=== PATIENT | female | born 1945 | race Caucasian/White ===

== ENCOUNTER → 2022-09-17 | Outpatient (CLI) | payer OTHER | END | disposition home or self-care (01) | LOC: SHCH 09:17 | PROVIDERS: ATTEND Student in an Organized Health Care Education/Training Program | DX: I08.8 Other rheumatic multiple valve diseases (principal); R06.02 Shortness of breath | CPT/HCPCS: 93306 ==

== ENCOUNTER → 2022-10-30 | Outpatient (CLI) | payer OTHER ==
[~2022-10-30] MED LIST: IOHEXOL 350 MG/ML 100ML INFUS..BTL IV ONE
== END | disposition home or self-care (01) ==
LOC: RAH 09:12 → EDUNIT# 11-11 10:00
PROVIDERS: ATTEND Student in an Organized Health Care Education/Training Program
DX: M47.815 Spondylosis without myelopathy or radiculopathy, thoracolumbar region (principal); R07.9 Chest pain, unspecified
CPT/HCPCS: 75574; Q9967

== ENCOUNTER 2024-02-09 10:33 | Observation (INO) | payer OTHER ==
[~2024-02-09] VITALS: Ht 167.6 cm; Wt 108.4 kg
[2024-02-09 11:15] VITALS: BP 124/57; PULSE 60; RESP 18
[2024-02-09] MEDS ORDERED: ACETAMINOPHEN 500 MG TABLET PO PRN (11:30)
[2024-02-09] MEDS ORDERED: DILT120T PO (11:50)
[2024-02-09] MEDS ORDERED: ACET-2743 PO (11:50)
[2024-02-09] MEDS ORDERED: LISI20TA24 PO (11:50)
[2024-02-09] MEDS ORDERED: CYAN100010 PO (11:50)
[2024-02-09] MEDS ORDERED: FURO20TA6 PO (11:50)
[2024-02-09] MEDS ORDERED: MVIT PO (11:50)
[2024-02-09] MEDS ORDERED: AMIO200T68 PO (11:50)
[2024-02-09] MEDS ORDERED: CHOL100046 PO (11:50)
[2024-02-09 12:00] VITALS: O2SAT 95
[2024-02-09] MEDS ORDERED: MAGNESIUM 2GM PREMIX 50ML 50 ML IV PRN (12:00)
[2024-02-09] MEDS ORDERED: POTASSIUM CHLORIDE 20MEQ/100ML 100 ML IV PRN (12:00)
[2024-02-09] MEDS ORDERED: POTASSIUM CHLORIDE 10% ELIXIR 20 MEQ/15 ML UDCUP PO PRN (12:00)
[2024-02-09] MEDS ORDERED: KCL 20 MEQ ERTAB PO PRN (12:00)
[2024-02-09 12:23] LABS: BASOPHILS # (AUTO) 0.05 K/uL (0.00-0.20); BASOPHILS % (AUTO) 0.6 % (0.0-5.0); EOSINOPHILS # (AUTO) 0.26 K/uL (0.00-0.70); HEMATOCRIT 36.9 % (36-48); IMMATURE GRANULOCYTE ABSOLUTE 0.03 K/uL (0-1); LYMPHOCYTES # (AUTO) 3.3 K/uL (1.0-4.8); LYMPHOCYTES % (AUTO) 39.1 % (21.0-51.0); MEAN CORPUSCULAR HGB CONC 34.1 g/dL (32.0-36.0); MEAN CORPUSCULAR VOLUME 96.6 fL (79-99); MONOCYTES # (AUTO) 0.6 K/uL (0.1-1.0); MONOCYTES % (AUTO) 6.4 % (3.0-13.0); NEUTROPHILS # (AUTO) 4.3 K/uL (1.8-7.7); NEUTROPHILS % (AUTO) 50.5 % (40.0-77.0); PLATELET COUNT (AUTO) 195 K/uL (130-400); RED BLOOD CELL COUNT(AUTO) 3.82 MIL/uL (4.00-5.50); RED CELL DISTRIBUTION WIDTH 12.3 % (11.0-15.5); WHITE BLOOD COUNT (AUTO) 8.5 K/uL (4.8-10.8)
[2024-02-09 12:36] LABS: HEMOGLOBIN A1C 6.3 % (4.0-6.0)
[2024-02-09 12:43] LABS: PROTHROMBIN TIME 11.8 SEC (9.6-11.6)
[2024-02-09 12:44] LABS: PARTIAL THROMBOPLASTIN TIME 25.9 SEC (26.3-35.5)
[2024-02-09 12:53] LABS: ALANINE AMINOTRANSFERASE 38 U/L (12-78); ALBUMIN 4.3 g/dL (3.5-5.0); ASPARTATE AMINOTRANSFERASE 18 U/L (10-37); BILIRUBIN,TOTAL 0.7 mg/dL (0.2-1.0); CARBON DIOXIDE 26 mmol/L (21-32); CHLORIDE 100 mmol/L (101-111); CREATININE 1.2 mg/dL (0.5-1.0); GLOMERULAR FILTR. RATE CALC 47 mL/min (>90); GLUCOSE,RANDOM 109 mg/dL (70-105); POTASSIUM 4.6 mmol/L (3.5-5.1); SODIUM SERUM 136 mmol/L (136-145); THYROID STIMULATING HORMONE 2.19 uIU/mL (0.36-3.74); TOTAL PROTEIN, SERUM 7.7 g/dL (6.0-8.3); UREA NITROGEN, BLOOD 26 mg/dL (7-18)
[2024-02-09 13:00] LABS: CHOLESTEROL 131 mg/dL (<200); HDL CHOLESTEROL 62 mg/dL (35-85); LDL DIRECT 46 mg/dL (0-99); TRIGLYCERIDES 160 mg/dL (30-200)
[2024-02-09] MEDS ORDERED: ATOR-2 PO (13:11)
[2024-02-09] MEDS ORDERED: MAGN250T35 PO (13:11)
[2024-02-09] MEDS ORDERED: ACET-3540 PO (13:11)
[2024-02-09] MEDS ORDERED: ASPI-1197 PO (13:11)
[2024-02-09] MEDS ORDERED: AMIODARONE 900MG VIAL 540 MG in DEXTROSE 5%-WATER 300 ML IV SCH (13:30)
[2024-02-09] MEDS ORDERED: PHARMACY COMMUNICATION MISC SCH (13:30)
[2024-02-09] MEDS: FUROSEMIDE 20MG VIAL IV ONE (13:38)
[2024-02-09] MEDS: AMIODARONE 900MG VIAL 150 MG in DEXTROSE 5%-WATER 100 ML IV SCH (14:11)
[2024-02-09] MEDS: AMIODARONE 900MG VIAL 360 MG in DEXTROSE 5%-WATER 200 ML IV SCH (14:24)
[2024-02-09] MEDS: INSULIN HUMULIN R 100 UNIT/ML 3ML SQ SCH (16:30)
[2024-02-09 16:40] VITALS: BP 126/55; PULSE 53; RESP 18
[2024-02-09 20:00] VITALS: O2SAT 96
[2024-02-09 20:10] VITALS: BP 122/72; PULSE 59; RESP 18
[2024-02-09] MEDS: AMIODARONE 200 MG TABLET PO SCH (21:22)
[2024-02-10 00:55] VITALS: BP 112/51; PULSE 64; RESP 18
[2024-02-10 04:51] VITALS: BP 118/70; PULSE 90; RESP 18
[2024-02-10 07:08] LABS: BASOPHILS # (AUTO) 0.04 K/uL (0.00-0.20); BASOPHILS % (AUTO) 0.4 % (0.0-5.0); EOSINOPHILS # (AUTO) 0.39 K/uL (0.00-0.70); EOSINOPHILS % (AUTO) 3.4 % (0.0-8.0); HEMATOCRIT 36.3 % (36-48); IMMATURE GRANULOCYTE ABSOLUTE 0.02 K/uL (0-1); LYMPHOCYTES # (AUTO) 4.8 K/uL (1.0-4.8); LYMPHOCYTES % (AUTO) 41.9 % (21.0-51.0); MEAN CORPUSCULAR HEMOGLOBIN 33.1 pg (27.0-33.0); MEAN CORPUSCULAR HGB CONC 33.1 g/dL (32.0-36.0); MEAN CORPUSCULAR VOLUME 100.3 fL (79-99); MONOCYTES # (AUTO) 0.7 K/uL (0.1-1.0); MONOCYTES % (AUTO) 6.2 % (3.0-13.0); NEUTROPHILS # (AUTO) 5.5 K/uL (1.8-7.7); NEUTROPHILS % (AUTO) 47.9 % (40.0-77.0); PLATELET COUNT (AUTO) 191 K/uL (130-400); RED BLOOD CELL COUNT(AUTO) 3.62 MIL/uL (4.00-5.50); RED CELL DISTRIBUTION WIDTH 12.4 % (11.0-15.5); WHITE BLOOD COUNT (AUTO) 11.4 K/uL (4.8-10.8)
[2024-02-10 07:15] LABS: CREATININE 1.2 mg/dL (0.5-1.0); POTASSIUM 4.5 mmol/L (3.5-5.1)
[2024-02-10 07:18] VITALS: BP 119/56; PULSE 57; RESP 18
[2024-02-10 07:27] VITALS: RESP 18; O2SAT 96
[2024-02-10 07:32] VITALS: O2SAT 95
[2024-02-10] MEDS: (Cholecalciferol (Vitamin D3) (Vitamin D3) 25 MCG) PO SCH (09:00)
[2024-02-10] MEDS: ENOXAPARIN SODIUM 30 MG/0.3 ML SQ SCH (09:00)
[2024-02-10] MEDS: LISINOPRIL 20 MG TABLET PO SCH (09:24)
[2024-02-10] MEDS: FUROSEMIDE 20 MG TABLET PO SCH (09:24)
[2024-02-10] MEDS: CYANOCOBALAMIN (VITAMIN B-12) 1,000 MCG TABLET PO SCH (09:24)
[2024-02-10] MEDS: ASPIRIN 81MG CHEW TAB PO SCH (09:24)
[2024-02-10] MEDS: PANTOPRAZOLE 40 MG TAB DR PO SCH (09:24)
[2024-02-10 11:14] VITALS: BP 115/44; PULSE 56; RESP 18
[2024-02-10 12:03] LABS: APPEARANCE,URINE CLOUDY (CLEAR); BILIRUBIN,URINE NEGATIVE (NEGATIVE); COLOR,URINE LIGHT-YELLOW (YELLOW); GLUCOSE, URINE (UA) NEGATIVE (NEGATIVE); KETONES,URINE NEGATIVE (NEGATIVE); LEUKOCYTE ESTERASE ,URINE 500 Leu/uL (NEGATIVE); NITRATE,URINE NEGATIVE (NEGATIVE); OCCULT BLOOD,URINE NEGATIVE (NEGATIVE); PROTEIN,URINE NEGATIVE (NEGATIVE); UROBILINOGEN,URINE 0.2 mg/dL (0.2-1.0)
[2024-02-10 12:22] LABS: ADD UA MICROSCOPIC YES
[2024-02-10 12:26] LABS: BACTERIA,URINE RARE /HPF (None Seen); MUCUS,URINE RARE LPF (None Seen); SQUAMOUS EPITHELIAL CELL,UR MOD /HPF (0-2); WBC,URINE 51-100 /HPF (0-1)
[2024-02-10] MEDS ORDERED: CEFD300C3 PO (13:25)
[2024-02-10] MEDS: CEFTRIAXONE 1G VIAL IVPB SCH (13:58)
[2024-02-10] MEDS ORDERED: ATORVASTATIN 40 MG TABLET PO SCH (21:00)
== END 2024-02-10 14:40 | disposition home or self-care (01) ==
LOC: EDH 10:33 → 2DH 10:57 → INTOOBSV 10:57
PROVIDERS: ADMIT Internal Medicine; ATTEND Internal Medicine
DX: I48.19 Other persistent atrial fibrillation (principal); G47.33 Obstructive sleep apnea (adult) (pediatric); E78.5 Hyperlipidemia, unspecified; I10 Essential (primary) hypertension; I08.1 Rheumatic disorders of both mitral and tricuspid valves; N39.0 Urinary tract infection, site not specified; Z79.82 Long term (current) use of aspirin; Z95.818 Presence of other cardiac implants and grafts; Z79.899 Other long term (current) drug therapy
CPT/HCPCS: 96376; 96365; 96366; 96375; 83036; 84443; 83735 ×2; 84484 ×2; 80061; 80053; 83880; 85025 ×2; 85610; 85730; 82948 ×2; 86140; 36415 ×2; 71045; 93306; 93356; 76376; 93005; 84145; 96367; 80048; 87088; 81001; J7060 ×2; J1940; J0282 ×2; G0378 ×3; J1650; J0696

== ENCOUNTER 2024-10-12 06:42 | Day surgery (SDC) | payer OTHER ==
[2024-10-10 09:02] LABS: BASOPHILS # (AUTO) 0.04 K/uL (0.00-0.20); BASOPHILS % (AUTO) 0.4 % (0.0-5.0); EOSINOPHILS # (AUTO) 0.33 K/uL (0.00-0.70); EOSINOPHILS % (AUTO) 3.6 % (0.0-8.0); IMMATURE GRANULOCYTE ABSOLUTE 0.02 K/uL (0-1); LYMPHOCYTES # (AUTO) 3.8 K/uL (1.0-4.8); LYMPHOCYTES % (AUTO) 40.9 % (21.0-51.0); MEAN CORPUSCULAR HEMOGLOBIN 32.6 pg (27.0-33.0); MEAN CORPUSCULAR HGB CONC 32.6 g/dL (32.0-36.0); MONOCYTES # (AUTO) 0.6 K/uL (0.1-1.0); MONOCYTES % (AUTO) 6.5 % (3.0-13.0); NEUTROPHILS # (AUTO) 4.5 K/uL (1.8-7.7); NEUTROPHILS % (AUTO) 48.4 % (40.0-77.0); PLATELET COUNT (AUTO) 194 K/uL (130-400); RED CELL DISTRIBUTION WIDTH 12.3 % (11.0-15.5); WHITE BLOOD COUNT (AUTO) 9.2 K/uL (4.8-10.8)
[2024-10-10 09:05] VITALS: BP 150/73; PULSE 56; RESP 18; TEMP 97.4
[2024-10-10 09:12] LABS: INR 1.02 (0.85-1.15); PROTHROMBIN TIME 11.4 SEC (9.6-11.6)
[2024-10-10 09:14] LABS: PARTIAL THROMBOPLASTIN TIME 25.8 SEC (26.3-35.5)
[2024-10-10 09:16] LABS: CREATININE 1.1 mg/dL (0.5-1.0)
--- NOTE | 2024-10-10 09:59 | EKG ---
[facility] Test Date: 2024-10-10 Test Time: 09:49:08 Pat Name: NATASHA BURDEN Department: [facility] Room: Gender: F Sales Ambassador: [id number] : 1945 Requested By: JOEY POOL Order Number: [id number] Reading MD: Oswald Clinton Measurements Intervals [place] Rate: 98 P: 0 IN: 0 QRS: 15 QRSD: 103 T: -28 QT: 341 QTc: 436 Interpretive Statements Atrial fibrillation Aberrant complex Compared to ECG 02/09/2024 12:38:32 Aberrant conduction of supraventricular beat(s) now present Ventricular premature complex(es) no longer present ST (T wave) deviation no longer present Electronically Signed On 10-10-2024 18:23:38 RESEARCH CHIEF ENGINEER by Oswald Clinton Please click the below link to view image of tracing.
[~2024-10-12] VITALS: Ht 170.2 cm; Wt 111.3 kg
[2024-10-12] VITALS (7 sets, daily range): BP systolic 99–151; BP diastolic 49–72; PULSE 54–102; RESP 13–18; TEMP 97.1–97.5
[~2024-10-12 06:42] MED LIST changes: +ACET-2521 PO; +ACET-3540 PO; +ASPI-1197 PO; +ATOR-2 PO; +CHOL400T14 PO; +CYAN100010 PO; +FURO20TA6 PO; -IOHEXOL 350 MG/ML 100ML INFUS..BTL IV ONE; +LISI20TA24 PO; +MAGN250T35 PO; +MVIT PO
[2024-10-12] MEDS ORDERED: 0.9%NACL 1000ML 1,000 ML IV SCH (08:00)
[2024-10-12] MEDS ORDERED: LIDOCAINE HCL 1% MDV 50ML VIAL ONE (09:01)
[2024-10-12] MEDS ORDERED: BUPIvacaine/PF 0.25% 30ML VIAL IJ ONE (09:01)
[2024-10-12] MEDS ORDERED: ceFAZolin SODIUM 1 GM VIAL ONE (09:01)
[2024-10-12] MEDS ORDERED: MIDAZOLAM HCL 1 MG/ML 2ML VIAL ONE ×3 (09:21→09:45)
[2024-10-12] MEDS ORDERED: IOHEXOL-350 50ML VIAL IV ONE (09:21)
[2024-10-12] MEDS ORDERED: MEPERIDINE-PF 50 MG/ML SYG ONE ×2 (09:21→09:45)
[2024-10-12] MEDS ORDERED: acetaMINOPHEN WITH coDEINE 1 TAB TAB PO PRN ×2 (11:00→12:30)
[2024-10-12] MEDS ORDERED: acetaMINOPHEN 500 MG TABLET PO PRN (11:00)
[2024-10-12] MEDS ORDERED: TRAM50TA4 PO (11:02)
--- NOTE | 2024-10-12 12:54 | HMCIMG ---
Exam Type: CHEST 1VW Clinical Information: s/p pacemaker Comparison: None Findings: The lungs are clear ofthe heart is enlarged in size. The bony and soft tissue structures of the chest are unremarkable. Left cardiac pacemaker is noted with leads in place. Impression: Clear lungs.
--- NOTE | 2024-10-13 07:02 | EKG ---
[facility] Test Date: 2024-10-12 Test Time: 12:07:28 Pat Name: NATASHA BURDEN Department: [facility] Room: [facility] Gender: Female Starchmaker: [id number] : 1945 Requested By: JOEY POOL Order Number: [id number] Reading MD: Oswald Clinton Measurements Intervals [place] Rate: 95 P: 0 MS: 128 QRS: 17 QRSD: 106 T: -63 QT: 363 QTc: 452 Interpretive Statements Ventricular-paced complexes Compared to ECG 10/10/2024 09:49:08 Atrial fibrillation no longer present Aberrant conduction of supraventricular beat(s) no longer present Electronically Signed On 10-14-2024 17:35:13 QUILL LAYER by Oswald Clinton Please click the below link to view image of tracing.
== END 2024-10-12 13:10 | disposition home or self-care (01) ==
LOC: DAH 06:42
PROVIDERS: ATTEND Internal Medicine Cardiovascular Disease
DX: I48.19 Other persistent atrial fibrillation (principal); I49.5 Sick sinus syndrome; I10 Essential (primary) hypertension; R00.1 Bradycardia, unspecified; E78.5 Hyperlipidemia, unspecified; G47.33 Obstructive sleep apnea (adult) (pediatric); E66.01 Morbid (severe) obesity due to excess calories; Z90.89 Acquired absence of other organs; Z68.39 Body mass index [BMI] 39.0-39.9, adult; Z98.890 Other specified postprocedural states; Z95.811 Presence of heart assist device; Z82.49 Family history of ischemic heart disease and other diseases of the circulatory system; Z79.899 Other long term (current) drug therapy; Z79.82 Long term (current) use of aspirin; Z88.8 Allergy status to other drugs, medicaments and biological substances
CPT/HCPCS: 80048; 85025; 85610; 85730; 36415; 93005 ×2; 33208; 71045; C1785; C1898 ×2; J0690; J7030; J0665; J2250 ×3; J2175 ×2; J3490; Q9967; A4215; A6251; A4222; A4221; A4663; A4216; A6258; A4606; A4223 ×3; 99156; 99157

== ENCOUNTER 2024-11-15 16:02 | Emergency (ER) | payer OTHER ==
[~2024-11-15] VITALS: Ht 167.6 cm; Wt 112.5 kg
[~2024-11-15 16:02] MED LIST changes: +APIX5TAB PO; +TRAM50TA4 PO
--- NOTE | 2024-11-15 16:14 | ERN ---
ED Note History of Present Illness Stated Complaint: RT KNEE PAIN AND INJURY Chief Complaint: Knee Injury/Swelling Time Seen by MD: 16:08 Dictation: PATIENT IS A 78-YEAR-OLD FEMALE HERE WITH RIGHT KNEE PAIN ONSET THURSDAY. SHE STATES SHE WAS WALKING WHEN SHE TWISTED IT, NO FALL NO HIP PAIN. NO BLOOD THINNERS SHE HAS NOT TAKEN ANYTHING PRIOR TO ARRIVAL FOR PAIN TODAY. HAS A BRACE IN PLACE THAT SHE BOUGHT [id number]. DISTAL NEUROVASCULAR CMS INTACT Allergies: Coded Allergies: codeine (Verified Adverse Reaction, Mild, 02/09/24) NAUSEA, VOMITING Home Meds Active Scripts Tramadol Hcl (Tramadol HCl) 50 Mg Tablet, 50 MG PO Q6HPRN PRN for MODERATE TO SEVERE, #30 TAB 0 Refills MAY TAKE 1-2 TABLETS EVERY 6 HOURS NEEDED FOR MODERATE TO SEVERE PAIN. MAXIMUM EIGHT TABLETS IN 24 HOURS Prov:PATRICIA HOFF ANTHROPOLOGY INSTRUCTOR 11/15/24 Reported Medications Amiodarone HCl (Amiodarone HCl) 200 Mg Tablet, 200 MG PO BID, TAB 11/15/24 Apixaban (Eliquis) 5 Mg Tablet, 5 MG PO BID, TAB 11/15/24 Acetaminophen (Arthritis Pain Relief) 650 Mg Tablet.er, 650 MG PO [id number] PRN for PAIN, TAB 10/10/24 Cholecalciferol (Vitamin D3) (Vitamin D3) 10 Mcg (400 Unit) Tab.chew, 10 MCG PO DAILY, TAB.CHEW 10/10/24 Magnesium (Magnesium) 250 Mg Tablet, 250 MG PO HS, TAB 02/09/24 Aspirin (Aspirin) 81 Mg Tab.chew, 81 MG PO HS, TAB.CHEW 02/09/24 Atorvastatin Calcium (Atorvastatin Calcium) 80 Mg Tablet, 80 MG PO HS, TAB 02/09/24 Acetaminophen/Diphenhydramine (Tylenol Pm Exstr 500-25Mg Cplt) 500 Mg-25 Mg Tablet, 2 EACH PO HS, TAB 02/09/24 Cyanocobalamin (Vitamin B-12) (Vitamin B-12) 1,000 Mcg Tablet.er, 1000 MCG PO DAILY, TAB 02/09/24 Lisinopril (Lisinopril) 20 Mg Tablet, 40 MG PO DAILY, TAB 02/09/24 Furosemide (Lasix 20Mg Tab) 20 Mg Tablet, 20 MG PO DAILY, TAB 02/09/24 Discontinued Reported Medications Multivitamins,Therapeutic (Multivitamin Tablet) 400 Mcg Tab, 1 TAB PO DAILY, TAB 02/09/24 Discontinued Scripts Tramadol Hcl (Tramadol HCl) 50 Mg Tablet, 50 MG PO Q6HPRN PRN for PAIN, #15 TAB 0 Refills Prov:JOEY POOL MD 10/12/24 Past Medical History Past Medical History: A-Fib, Arthritis, High Cholesterol, Hypertension Surgical History: Pacer/AICD, Other Surgical History Other: CARDIAC ABLASIONS History: Not Applicable RN Note Reviewed/Agreed w/PFSH: Yes Review of System Dictation CONSTITUTIONAL: NEGATIVE EXCEPT FOR HPI HEAD/FACE: NEGATIVE EXCEPT FOR HPI EENT: NEGATIVE EXCEPT FOR HPI RESPIRATORY: NEGATIVE EXCEPT FOR HPI GASTROINTESTINAL/ABDOMINAL: NEGATIVE EXCEPT FOR HPI GENITOURINARY: NEGATIVE EXCEPT FOR HPI MUSCULOSKELETAL: NEGATIVE EXCEPT FOR HPI RIGHT KNEE PAIN DIFFUSE INTEGUMENTARY: NEGATIVE EXCEPT FOR HPI NEUROLOGICAL/PSYCH: NEGATIVE EXCEPT FOR HPI HEMATOLOGIC/LYMPHATIC: NEGATIVE EXCEPT FOR HPI ALL SYSTEMS NEGATIVE, EXCEPT NOTED ABOVE. 13 POINT REVIEW OF SYSTEMS ASSESSED AND ALL NEGATIVE EXCEPT FOR ABOVE. Initial Vital Sign VS Vital Signs Date Time Temp Pulse Resp B/P (MAP) Pulse Ox O2 Delivery O2 Flow Rate FiO2 11/15/24 16:07 97.5 50 20 124/52 99 Room Air 11/15/24 17:56 0 21 Physical Exam Dictation VITAL SIGNS REVIEWED GENERAL APPEARANCE: ALERT, ORIENTED X 3, MODERATE ACUTE DISTRESS, WELL DEVELOPED, NOURISHED. OBESE HEAD AND FACE: NON-TRAUMATIC. EYES: PERRL, PINK CONJUNCTIVAS, EYELID NO TRAUMA, ANTERIOR CHAMBER WITH ARCUS SENILIS. EARS: PINNAS INTACT AND NO SIGNS OF TRAUMA OR ERYTHEMA EAR CANALS CLEAR AND NO DISCHARGE TM NO ERYTHEMA NOSE: NO DISCHARGE, NO BLEEDING. OROPHARYNX: MOUTH NORMAL, TONGUE PINK, PHARYNX CLEAR,NO ERYTHEMA, TONSILS NO EXUDATES, NO ABSCESSES NOTED, MUCOUS MEMBRANE MOIST NECK: SUPPLE, NON-TENDER, NO THYROMEGALY, NO MASSES, NO JVD, NO BRUITS BREAST:DEFERRED CHEST:NO TENDERNESS, NO CREPITUS, NO PARADOXICAL MOVEMENT, NO RETRACTIONS LUNGS:CLEAR, WELL-VENTILATED, SYMMETRIC, NO RALES, NO WHEEZING, NO RHONCHI, NO STRIDOR, GOOD BREATH SOUNDS BILATERALLY HEART: REGULAR RATE, REGULAR RHYTHM, NO MURMUR, NO GALLOPS VASCULAR: NO PERIPHERAL EDEMA, ABDOMEN: SOFT, POSITIVE BOWEL SOUNDS, NONDISTENDED, NO GUARDING, NONTENDER, NO REBOUND, NO MASSES NO HEPATOMEGALY, NO SPLENOMEGALY, NO KING'S SIGN, NO HERNIAS. RECTAL: DEFERRED GENITAL: DEFERRED NEUROLOGICAL: NORMAL SPEECH, MOTOR FUNCTION INTACT, SENSORY FUNCTION INTACT MUSCULOSKELETAL: NECK NONTENDER, FULL RANGE OF MOTION, BACK NONTENDER, FULL RANGE OF MOTION, EXTREMITIES: NO EFFUSION, DEGENERATIVE CHANGES NOTED TO KNEE. DIFFICULT TO ASSESS NEED DUE TO BODY HABITUS. SKIN: COLOR PINK, DRY, NO TURGOR, NO RASH, NO LACERATIONS, NO ABRASIONS, NO CONTUSIONS. LYMPHATIC: DEFERRED Results (Laboratory/Radiology) Laboratory/Radiology COMPARISON: None FINDINGS: AP, lateral, and oblique views. No acute fracture or dislocation identified. 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 Mild tibiofibular joint osteoarthropathy. No significant joint effusion is present. Overlying soft tissues appear normal. 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 Labs Reviewed?: Yes ED Course ED Course Orders Procedure Category Date Status Time Acetaminophen With PHA 11/15/24 Complete Codeine (Tylenol-Code 16:30 Knee 3vws Rt RAD 11/15/24 Resulted 16:10 Ibuprofen 800 Mg Tab PHA 11/15/24 Complete (Motrin) 16:30 Acetaminophen 500mg PHA 11/15/24 Complete Tab (Tylenol 500mg T 17:00 Dexamethasone 4mg/Ml PHA 11/15/24 Complete 1ml Vial (Dexametha 18:00 *Nursing CPOE 11/15/24 Transmitted Communication: 17:38 Current Medications Medications (Trade) Dose Ordered Sig/Ruddy Route PRN Reason Start Time Stop Time Status Last Admin Dose Admin Acetaminophen (TYLenol 500MG TAB) 1,000 mg ONCE ONCE PO 11/15/24 17:00 11/15/24 17:01 DC 11/15/24 16:52 Acetaminophen/ Codeine Phosphate (TYLenol-coDEINE TAB) 2 tab ONCE ONCE PO 11/15/24 16:30 11/15/24 16:26 DC Dexamethasone Sodium Phosphate (dexaMETHasone 4MG/ML 1ML VIAL) 8 mg ONCE ONCE IM 11/15/24 18:00 3/11/25 18:01 DC 11/15/24 17:50 Ibuprofen (moTRIN) 800 mg ONCE ONCE PO 11/15/24 16:30 11/15/24 16:41 DC Vital Signs Date Time Temp Pulse Resp B/P (MAP) Pulse Ox O2 Delivery O2 Flow Rate FiO2 11/15/24 17:56 97.5 48 17 132/48 98 Room Air* 0 21 11/15/24 16:07 97.5 50 20 124/52 99 Room Air 1730/PATIENT AWARE THAT SHE HAS DEGENERATIVE CHANGES CONSISTENT WITH SEVERE OSTEOARTHRITIS HOWEVER NO BROKEN BONES. WE WILL REPLACE HER [id number] BRACE. SHE WILL BE GIVEN SHOT OF DECADRON, WANTS TO BE DISCHARGED HOME WITH TRAMADOL FOR PAIN AND THE NAME OF DR. SANTA HOLLAND FOR FOLLOW UP Medical Decision Making MDM MEDICAL DISCHARGE MAKING BASED ON PAIN MANAGEMENT FOR ACUTE KNEE PAIN AND X-RAY. X-RAY IS NEGATIVE EXCEPT FOR MODERATE TO SEVERE CHANGES DUE TO OSTEOARTHRITIS. PATIENT STATES SHE IS HEARING POPPING SOUNDS AND WE WILL NEED A PROBABLE MRI IN THE FUTURE WE WILL BE DISCHARGED HOME NEUROLOGICALLY INTACT TO HER RIGHT LOWER EXTREMITY AND REFERRED TO DR. SANTA HOLLAND ORTHOPEDIC SURGEON DX & DISP Disposition: Discharge Departure Impression: Primary Impression: Derangement of right knee Additional Impression: Right knee DJD Condition: Stable Scripts Tramadol Hcl (Tramadol HCl) 50 Mg Tablet 50 MG PO Q6HPRN PRN for MODERATE TO SEVERE, #30 TAB 0 Refills MAY TAKE 1-2 TABLETS EVERY 6 HOURS NEEDED FOR MODERATE TO SEVERE PAIN. MAXIMUM EIGHT TABLETS IN 24 HOURS Prov: PATRICIA HOFF ANTHROPOLOGY INSTRUCTOR 11/15/24 Additional Instructions: Follow-up with primary care provider in 1 to 2 days. Take medications as directed here in the emergency room. Okay to continue home medications unless otherwise discussed during your visit in the emergency room today. Return to your nearest emergency room if symptoms worsen or if there is no improvement. Call 911 if you need immediate assistance. Take Tylenol or Motrin over-the- counter as needed and if no contraindications are present. Increase oral hydration. A wound culture or urine culture was ordered here in the emergency room department please follow-up with primary care provider and advise them to get repeat ports from our facility. If you had any Paul wrap/splints that were applied here, please do not remove them until you see your primary care or specialty. Continue with [id number] brace, use warm compresses for pain three to 4 times a day. Take Tylenol for mild pain., call orthopedic surgeon for an appointment in the next 1-2 days. Referrals: DUNG JOEL MD (PCP) SANTA HOLLAND MD Time of Disposition: 17:33 I have reviewed the case, and I agree with, Diagnosis and Plan PATRICIA HOFF NP Nov 15, 2024 16:14 CHERI FIORE DO Nov 15, 2024 18:10
[2024-11-15] MEDS ORDERED: AMIO200T68 PO (16:26)
[2024-11-15] MEDS ORDERED: ibuPROFEN 800 MG TAB PO ONE (16:30)
[2024-11-15] MEDS ORDERED: acetaMINOPHEN WITH coDEINE 1 TAB TAB PO ONE (16:30)
[2024-11-15] MEDS: acetaMINOPHEN 500 MG TABLET PO ONE (16:52)
--- NOTE | 2024-11-15 17:22 | HMCIMG ---
RIGHT KNEE RADIOGRAPHS - 3 VIEWS INDICATION: Pain COMPARISON: None FINDINGS: AP, lateral, and oblique views. No acute fracture or dislocation identified. 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 Mild tibiofibular joint osteoarthropathy. No significant joint effusion is present. Overlying soft tissues appear normal. 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
[2024-11-15] MEDS ORDERED: TRAM50TA4 PO (17:35)
[2024-11-15] MEDS: dexaMETHasone SOD PHOSPHATE 4 MG/ML 1ML VIAL IM ONE (17:50)
[2024-11-15 17:56] VITALS: BP 132/48; PULSE 48; RESP 17; TEMP 97.6; O2SAT 98
== END 2024-11-15 18:09 | disposition home or self-care (01) ==
LOC: EDH 16:02
DX: M23.91 Unspecified internal derangement of right knee (principal); M17.11 Unilateral primary osteoarthritis, right knee; I48.91 Unspecified atrial fibrillation; E78.00 Pure hypercholesterolemia, unspecified; I10 Essential (primary) hypertension; Z79.01 Long term (current) use of anticoagulants; Z79.82 Long term (current) use of aspirin; Z79.899 Other long term (current) drug therapy; Z88.5 Allergy status to narcotic agent; Z95.810 Presence of automatic (implantable) cardiac defibrillator
CPT/HCPCS: 99284; 73562; 96372; J1100

== ENCOUNTER 2024-11-17 07:21 | Day surgery (SDC) | payer OTHER ==
[2024-11-15 14:39] LABS: BASOPHILS # (AUTO) 0.05 K/uL (0.00-0.20); BASOPHILS % (AUTO) 0.6 % (0.0-5.0); EOSINOPHILS # (AUTO) 0.25 K/uL (0.00-0.70); EOSINOPHILS % (AUTO) 2.8 % (0.0-8.0); IMMATURE GRANULOCYTE ABSOLUTE 0.02 K/uL (0-1); LYMPHOCYTES # (AUTO) 3.4 K/uL (1.0-4.8); LYMPHOCYTES % (AUTO) 37.6 % (21.0-51.0); MEAN CORPUSCULAR HEMOGLOBIN 33.2 pg (27.0-33.0); MEAN CORPUSCULAR HGB CONC 33.2 g/dL (32.0-36.0); MONOCYTES # (AUTO) 0.6 K/uL (0.1-1.0); MONOCYTES % (AUTO) 6.6 % (3.0-13.0); NEUTROPHILS # (AUTO) 4.7 K/uL (1.8-7.7); NEUTROPHILS % (AUTO) 52.2 % (40.0-77.0); PLATELET COUNT (AUTO) 200 K/uL (130-400)
[2024-11-15 14:50] VITALS: BP 140/57; PULSE 63; RESP 17; TEMP 97.2
[2024-11-15 15:12] LABS: INR 1.21 (0.85-1.15); PROTHROMBIN TIME 12.6 SEC (9.6-11.6)
[2024-11-15 15:14] LABS: PARTIAL THROMBOPLASTIN TIME 30.5 SEC (26.3-35.5)
[2024-11-15 15:19] LABS: CREATININE 1.3 mg/dL (0.5-1.0); POTASSIUM 4.3 mmol/L (3.5-5.1)
[~2024-11-17] VITALS: Ht 167.6 cm; Wt 113.4 kg
[~2024-11-17 07:21] MED LIST changes: +AMIO200T68 PO; -MVIT PO
[2024-11-17 07:35] VITALS: BP 110/44; PULSE 47; RESP 18; TEMP 97.7
--- NOTE | 2024-11-17 08:20 | EKG ---
[facility] Test Date: 2024-11-17 Test Time: 07:32:54 Pat Name: NATASHA BURDEN Department: [facility] Room: [facility] Gender: F Refrigeration Person: [id number] : 1945 Requested By: JOEY POOL Order Number: [id number] Reading MD: Teodoro Dacosta Measurements Intervals [place] Rate: 93 P: 0 [place]: 0 QRS: 10 QRSD: 112 T: -75 QT: 356 QTc: 442 Interpretive Statements Ventricular-paced complexes Nonspecific repol abnormality, diffuse leads Compared to ECG 10/12/2024 12:07:28 Early repolarization now present Electronically Signed On 11-20-2024 18:28:23 CDT by Teodoro Dacosta Please click the below link to view image of tracing.
[2024-11-17] MEDS ORDERED: proPOFol 10 MG/ML 20ML VIAL IV ONE ×2 (08:22→09:43)
[2024-11-17] MEDS ORDERED: 0.9%NACL 1000ML 1,000 ML IV SCH (09:30)
--- NOTE | 2024-11-17 09:48 | NUR ---
PT SYNCHRONIZED CARDIOVERTED [address] POOL AT THIS TIME VSS THERESA.
--- NOTE | 2024-11-17 09:52 | NUR ---
PT CAOX [address] POOL ANESTHESIA AT BEDSIDE.
--- NOTE | 2024-11-17 09:57 | EKG ---
[facility] Test Date: 2024-11-17 Test Time: 09:51:36 Pat Name: NATASHA BURDEN Department: [facility] Gender: F Bacon Skinner: [id number] : 1945 Requested By: JOEY POOL Order Number: [id number] Reading MD: Teodoro Dacosta Measurements Intervals [place] Rate: 80 P: 0 VA: 319 QRS: 0 QRSD: 121 T: -72 QT: 382 QTc: 442 Interpretive Statements A-V dual-paced complexes w/ some inhibition Compared to ECG 11/17/2024 07:32:54 Ventricular-paced complex(es) or rhythm no longer present Early repolarization no longer present Electronically Signed On 11-20-2024 18:29:03 CDT by Teodoro Dacosta Please click the below link to view image of tracing.
[2024-11-17 10:00] VITALS: BP 128/52; PULSE 90; RESP 15
[2024-11-17 10:15] VITALS: BP 128/52; PULSE 86; RESP 15
[2024-11-17 10:30] VITALS: BP 132/60; PULSE 88; RESP 15
[2024-11-17 10:45] VITALS: BP 128/65; PULSE 94; RESP 15
[2024-11-17 10:55] VITALS: BP 137/58; PULSE 90; RESP 14
--- NOTE | 2024-11-17 12:30 | PRN ---
Procedure Note Date of procedure: 11/17/24 Diagnosis: Persistent atrial fibrillation Procedure: Cardioversion Physician: Crow Pool MD The patient was brought to the day patient area in a fasting state. The patient's pacemaker was interrogated and reprogrammed. Anesthesia was provided by the anesthesia service. Cardioversion was performed with a synchronized shock at 200 joules resulting in sinus rhythm. The patient tolerated the procedure well. Of note, the patient was having frequent asymptomatic PVC's both pre and post cardioversion. Final diagnosis: Persistent atrial fibrillation, status post successful cardioversion. 2. Frequent PVC's Disposition: 1. The patient will be discharged later today. 2. Follow up with me in the office in approximately two weeks. 3. Will evaluate PVC burden at next office visit. CROW POOL MD Nov 17, 2024 12:30
== END 2024-11-17 11:05 | disposition home or self-care (01) ==
LOC: DAH 07:21
PROVIDERS: ATTEND Internal Medicine Cardiovascular Disease
DX: I48.19 Other persistent atrial fibrillation (principal); I10 Essential (primary) hypertension; E78.5 Hyperlipidemia, unspecified; G47.33 Obstructive sleep apnea (adult) (pediatric); E66.01 Morbid (severe) obesity due to excess calories; Z68.37 Body mass index [BMI] 37.0-37.9, adult; Z90.89 Acquired absence of other organs; Z79.01 Long term (current) use of anticoagulants; Z79.899 Other long term (current) drug therapy
CPT/HCPCS: 80048; 85025; 85610; 85730; 36415; 92960; 93005 ×2; J2704; A4620; A4215; A4222; A4221; A4663; A4216; A4606; A4223 ×3; J3490

== ENCOUNTER 2024-12-28 08:47 | Inpatient (IN) | payer OTHER ==
[~2024-12-28] VITALS: Ht 167.6 cm; Wt 101.2 kg
--- NOTE | 2024-12-28 08:57 | NUR ---
PT JUST NOW PLACED IN MY HALLWAY A1
--- NOTE | 2024-12-28 08:57 | NUR ---
[place] [id number]
--- NOTE | 2024-12-28 09:17 | ERN ---
General Chief Complaint: Shortness of Breath Stated Complaint: SOB, BLE SWELLING Time Seen by MD: 08:50 Source: patient History of Present Illness Initial Comments IN HIS IS A 79-YEAR-OLD FEMALE COMING IN TO BE EVALUATED FOR SHORTNESS OF BREATH AND PALPITATIONS. PATIENT STATES HE HAS A EXTENSIVE HISTORY OF CARDIAC ISSUES. SHE RECENTLY GOT A STRESS TEST WELL AN ULTRASOUND OF THE HEART AND STATES THAT SHE HAD A LOW EJECTION FRACTION. SHE WAS PENDING A "DYE TEST" BY HER PET SITTING. SHE STATES HER PET SITTING IS DR. Barboza. She states that these symptoms progressively getting worse. Allergies: Coded Allergies: codeine (Verified Adverse Reaction, Mild, 02/09/24) NAUSEA, VOMITING Home Meds Active Scripts Tramadol Hcl (Tramadol HCl) 50 Mg Tablet, 50 MG PO Q6HPRN PRN for MODERATE TO SEVERE, #30 TAB 0 Refills MAY TAKE 1-2 TABLETS EVERY 6 HOURS NEEDED FOR MODERATE TO SEVERE PAIN. MAXIMUM EIGHT TABLETS IN 24 HOURS Prov:PATRICIA HOFF CURATOR HERBARIUM 11/15/24 Reported Medications Amiodarone HCl (Amiodarone HCl) 200 Mg Tablet, 200 MG PO BID, TAB 11/15/24 Apixaban (Eliquis) 5 Mg Tablet, 5 MG PO BID, TAB 11/15/24 Acetaminophen (Arthritis Pain Relief) 650 Mg Tablet.er, 650 MG PO [id number] PRN for PAIN, TAB 10/10/24 Cholecalciferol (Vitamin D3) (Vitamin D3) 10 Mcg (400 Unit) Tab.chew, 10 MCG PO DAILY, TAB.CHEW 10/10/24 Magnesium (Magnesium) 250 Mg Tablet, 250 MG PO HS, TAB 02/09/24 Aspirin (Aspirin) 81 Mg Tab.chew, 81 MG PO HS, TAB.CHEW 02/09/24 Atorvastatin Calcium (Atorvastatin Calcium) 80 Mg Tablet, 80 MG PO HS, TAB 02/09/24 Acetaminophen/Diphenhydramine (Tylenol Pm Exstr 500-25Mg Cplt) 500 Mg-25 Mg Tablet, 2 EACH PO HS, TAB 02/09/24 Cyanocobalamin (Vitamin B-12) (Vitamin B-12) 1,000 Mcg Tablet.er, 1000 MCG PO DAILY, TAB 02/09/24 Lisinopril (Lisinopril) 20 Mg Tablet, 40 MG PO DAILY, TAB 02/09/24 Furosemide (Lasix 20Mg Tab) 20 Mg Tablet, 20 MG PO DAILY, TAB 02/09/24 Past Medical History Past Medical History: A-Fib, Arthritis, High Cholesterol, Heart Disease, Hypertension Past Surgical History: Pacer/AICD, Other Surgical History Other: CARDIAC ABLASIONS Female( History) History: Not Applicable ROS Dictation CONSTITUTIONAL: No chills, no fever, no weakness, no diaphoresis, no malaise. HEAD/FACE: No signs of trauma. EENT: No eye pain, no blurred vision, no tearing, no double vision, no ear pain, no ear discharge, no nose pain, no nasal congestion, no throat pain, no throat swelling, no mouth pain. RESPIRATORY: No cough, no orthopnea, SOB, no stridor, no wheezing. CARDIOVASCULAR: No chest pain, no edema, no palpitations, no syncope. GASTROINTESTINAL/ABDOMINAL: No abdominal pain, no constipation, no diarrhea, no nausea, no vomiting. GENITOURINARY: No abnormal discharge, no dysuria, no frequent urination, no hematuria. No complaints of pain in the genitals. MUSCULOSKELETAL: No back pain, no gout, no joint pain, no joint swelling, no muscle pain, no muscle stiffness, no neck pain. INTEGUMENTARY: No change in color, no change in hair/nails, no dryness, no lesion, no lumps, no rash. NEUROLOGICAL/PSYCH: No anxiety, not depressed, no emotional problem, no headache, no numbness, no pre-existing deficit, no history of seizures, no tremors, no weakness. HEMATOLOGIC/LYMPHATIC: Not anemic, no history of blood clots, no apparent bleeding, no bruising, glands not swollen. All Systems Negative, Except as Noted. Physical Exam Physical Exam Dictation VITAL SIGNS: Reviewed. GENERAL APPEARANCE: Alert, oriented x3, no acute distress, obese. HEAD AND FACE: Non-traumatic. EYES: PERRL, pink conjunctivas, eyelid no trauma, anterior chamber clear. EARS: Pinnas intact and no signs of trauma or erythema. Ear canals clear and no discharge. TMs no erythema. NOSE: No discharge, no bleeding. OROPHARYNX: Mouth normal, teeth no caries, tongue pink. Pharynx clear, no erythema. Tonsils no exudates, no abscesses noted. Mucous membrane moist. NECK: Supple, non-tender, no thyromegaly, no masses, no JVD, no bruits. BREAST: Deferred. CHEST: No tenderness, no crepitus, no paradoxical movement, no retractions. LUNGS: Clear, well-ventilated, symmetric, no rales, no wheezing, no rhonchi, no stridor, good breath sounds bilaterally. HEART: Regular rate, regular rhythm, no murmur, no gallops. VASCULAR: No peripheral edema. ABDOMEN: Soft, positive bowel sounds, nondistended, no guarding, nontender, no rebound, no masses no hepatomegaly, no splenomegaly, no Srinivasan's sign, no hernias. RECTAL: Deferred. GENITAL: Deferred. NEUROLOGICAL: Normal speech, gross motor function intact, gross sensory function intact. MUSCULOSKELETAL: Neck nontender, full range of motion, back nontender, full range of motion. EXTREMITIES: Nontender, full range of motion. SKIN: Color pink, dry, no turgor, no rash, no lacerations, no abrasions, no contusions. LYMPHATICS: Deferred. Results Laboratory and Microbiology Lab and Micro Result Laboratory Tests Test 12/28/24 09:44 12/28/24 11:32 White Blood Count 8.9 K/uL (4.8-10.8) Red Blood Count 3.34 MIL/uL (4.00-5.50) L Hemoglobin 11.0 g/dL (12.0-16.0) L Hematocrit 33.9 % (36-48) L Mean Corpuscular Volume 101.5 fL (79-99) H Mean Corpuscular Hemoglobin 32.9 pg (27.0-33.0) Mean Corpuscular Hemoglobin Concent 32.4 g/dL (32.0-36.0) Red Cell Distribution Width 13.9 % (11.0-15.5) Platelet Count 178 K/uL (130-400) Mean Platelet Volume 10.0 fL (7.5-10.5) Immature Granulocyte % (Auto) 0.2 % (0-1) Neutrophils (%) (Auto) 67.4 % (40.0-77.0) Lymphocytes (%) (Auto) 22.7 % (21.0-51.0) Monocytes (%) (Auto) 6.6 % (3.0-13.0) Eosinophils (%) (Auto) 2.8 % (0.0-8.0) Basophils (%) (Auto) 0.3 % (0.0-5.0) Neutrophils # (Auto) 6.0 K/uL (1.8-7.7) Lymphocytes # (Auto) 2.0 K/uL (1.0-4.8) Monocytes # (Auto) 0.6 K/uL (0.1-1.0) Eosinophils # (Auto) 0.25 K/uL (0.00-0.70) Basophils # (Auto) 0.03 K/uL (0.00-0.20) Absolute Immature Granulocyte (auto 0.02 K/uL (0-1) Nucleated Red Blood Cells 0.0 % (0.0-0.19) Prothrombin Time 12.5 SEC (9.6-11.6) H Prothromb Time International Ratio 1.20 (0.85-1.15) H Activated Partial Thromboplast Time 25.1 SEC (26.3-35.5) L Sodium Level 138 mmol/L (136-145) Potassium Level 4.4 mmol/L (3.5-5.1) Chloride Level 104 mmol/L (101-111) Carbon Dioxide Level 26 mmol/L (21-32) Blood Urea Nitrogen 21 mg/dL (7-18) H Creatinine 1.2 mg/dL (0.5-1.0) H Glomerular Filtration Rate Calc 46 mL/min (>90) Random Glucose 125 mg/dL (70-105) H Total Calcium 9.0 mg/dL (8.5-10.1) Magnesium Level 2.20 mg/dL (1.80-2.40) Total Creatine Kinase 100 U/L (21-232) Troponin I High Sensitivity 10 ng/L (4-50) B-Type Natriuretic Peptide 108 pg/mL (0-100) H Urine Color COLORLESS (YELLOW) Urine Appearance CLEAR (CLEAR) Urine pH 5.5 (5.0-8.0) Urine Specific [place] 1.005 (1.001-1.031) Urine Protein NEGATIVE mg/dL (NEGATIVE) Urine Glucose (UA) NEGATIVE mg/dL (NEGATIVE) Urine Ketones NEGATIVE mg/dL (NEGATIVE) Urine Occult Blood NEGATIVE (NEGATIVE) Urine Nitrate NEGATIVE (NEGATIVE) Urine Bilirubin NEGATIVE mg/dL (NEGATIVE) Urine Urobilinogen 0.2 mg/dL (0.2-1.0) Urine Leukocyte Esterase NEGATIVE Christina/uL Labs Reviewed?: Yes EKG/XRAY/US/CT/MRI EKG Comment 12/28/2024 time 9:26 a.m. Ventricular rate [address] wave elevation or depression X-RAY Comment IMAGING REPORT Signed PATIENT: NATASHA BURDNE MR#: [id number] : 1945 SEX: F AGE: 79 LOCATION: [facility] ORDER 2 STATUS: [facility] ER REPORT#: [id number] SERVICE REASON: SOB ORDERING PHYSICIAN: DULCE SAMUEL MD PROCEDURE: CXR1VW - CHEST 1VW Exam Type: CHEST 1VW Clinical Information: SOB Comparison: None Findings: Left cardiac pacemaker is noted with leads in place. There is cardiomegaly. There is prominence of the vascular markings consistent with pulmonary venous congestion. IMPRESSION: Findings consistent with pulmonary venous congestion. DICTATED BY: DANAY GHOSH MD DATE: 12/28/24952 ELECTRONICALLY SIGNED BY: DANAY GHOSH MD DATE: 12/28/2456 [facility] MDM: Differential diagnosis: Pulmonary congestion, AFib, Rationale: Tests considered and ordered secondary to shared decision making include: Previous outside records reviewed: Old ER visits. Risk of complication and/or morbidity or mortality of patient management: None Medications-Per medication reconciliation Need for hospitalization: Patient does meet criteria for hospitalization. Need for emergency major/minor surgery: No There are no social concerns with this patient. Prescription drug management Prescriptions will include symptomatic care Patient's prior external medical records from other ER visits were reviewed by me as indicated. Prior testing and results from previous visits were reviewed. Prior tests were taken into account with medical decision making and resource utilization, independent historian/historians were used to obtain complete me dical history. I independently interpreted the test that were performed, results were reviewed by me and considered findings on radiology if ordered. Medical management and examination interpretation discussions were had by me with other qualified healthcare professionals as indicated for the patient's care. Patient will be admitted under the care of hospitalist group for ongoing management of pulmonary congestion and atrial fibrillation. Dr. Omer her crop grain or livestock farm manager consulted and states she will be following patient. ED Course Orders Procedure Category Date Status Time Cbc With Differential LAB 12/28/24 Complete 08:52 Prothrombin Time With LAB 12/28/24 Complete INR 08:52 B-Type Natriuretic LAB 12/28/24 Complete Peptide 08:52 Chest 1vw RAD 12/28/24 Resulted 08:52 12 Lead Ekg Tracing- EKG 12/28/24 Complete Technical 08:52 Magnesium LAB 12/28/24 Complete 08:52 Creatine Kinase, Total LAB 12/28/24 Complete 08:52 Troponin I High LAB 12/28/24 Complete Sensitivity 08:52 Urinalysis Profile LAB 12/28/24 Complete 08:52 Partial LAB 12/28/24 Complete Thromboplastin Time 08:52 Basic Metabolic Panel LAB 12/28/24 Complete 08:52 Vital Signs Date Time Temp Pulse Resp B/P (MAP) Pulse Ox O2 Delivery O2 Flow Rate FiO2 12/28/24 11:44 98.1 52 16 146/79 97 Room Air* 0 21 12/28/24 08:49 97.9 47 16 172/118 97 Room Air 0 DX & DISP Disposition: Inpatient Decision to Admit Time: 13:27 Departure Impression: Primary Impression: Pulmonary congestion Additional Impression: Afib Condition: Stable Referrals: DUNG JOEL MD (PCP) DULCE SAMUEL MD Dec 28, 2024 09:17
--- NOTE | 2024-12-28 09:33 | EKG ---
[facility] Test Date: 2024-12-28 Test Time: 09:26:10 Pat Name: NATASHA BURDEN Department: ED Room: 222 Gender: F [employer]: [id number] : 1945 Requested By: DULCE SAMUEL Order Number: [id number] Reading MD: Brett York Measurements Intervals Mobile Rate: 82 P: 0 PA: 0 QRS: 19 QRSD: 107 T: -73 QT: 400 QTc: 469 Interpretive Statements Atrial fibrillation Ventricular bigeminy Compared to ECG 11/17/2024 09:51:36 Ventricular premature complex(es) now present Electronically Signed On 12-29-2024 20:35:17 CDT by Brett York Please click the below link to view image of tracing.
--- NOTE | 2024-12-28 09:56 | HMCIMG ---
Exam Type: CHEST 1VW Clinical Information: SOB Comparison: None Findings: Left cardiac pacemaker is noted with leads in place. There is cardiomegaly. There is prominence of the vascular markings consistent with pulmonary venous congestion. IMPRESSION: Findings consistent with pulmonary venous congestion.
[2024-12-28 10:01] LABS: BASOPHILS # (AUTO) 0.03 K/uL (0.00-0.20); BASOPHILS % (AUTO) 0.3 % (0.0-5.0); EOSINOPHILS # (AUTO) 0.25 K/uL (0.00-0.70); EOSINOPHILS % (AUTO) 2.8 % (0.0-8.0); HEMATOCRIT 33.9 % (36-48); IMMATURE GRANULOCYTE ABSOLUTE 0.02 K/uL (0-1); LYMPHOCYTES % (AUTO) 22.7 % (21.0-51.0); MEAN CORPUSCULAR HEMOGLOBIN 32.9 pg (27.0-33.0); MEAN CORPUSCULAR HGB CONC 32.4 g/dL (32.0-36.0); MEAN CORPUSCULAR VOLUME 101.5 fL (79-99); MONOCYTES # (AUTO) 0.6 K/uL (0.1-1.0); MONOCYTES % (AUTO) 6.6 % (3.0-13.0); NEUTROPHILS % (AUTO) 67.4 % (40.0-77.0); PLATELET COUNT (AUTO) 178 K/uL (130-400); RED BLOOD CELL COUNT(AUTO) 3.34 MIL/uL (4.00-5.50); RED CELL DISTRIBUTION WIDTH 13.9 % (11.0-15.5); WHITE BLOOD COUNT (AUTO) 8.9 K/uL (4.8-10.8)
[2024-12-28 10:09] LABS: CREATININE 1.2 mg/dL (0.5-1.0); POTASSIUM 4.4 mmol/L (3.5-5.1)
[2024-12-28 10:11] LABS: INR 1.2 (0.85-1.15); PROTHROMBIN TIME 12.5 SEC (9.6-11.6)
[2024-12-28 10:13] LABS: PARTIAL THROMBOPLASTIN TIME 25.1 SEC (26.3-35.5)
[2024-12-28 10:14] LABS: MAGNESIUM 2.2 mg/dL (1.80-2.40)
[2024-12-28 10:36] LABS: B-TYPE NATRIURETIC PEPTIDE 108 pg/mL (0-100)
--- NOTE | 2024-12-28 10:57 | NUR ---
REPORT ENDORSED TO MORAIMA BROWN
[2024-12-28 11:59] LABS: APPEARANCE,URINE CLEAR (CLEAR); BILIRUBIN,URINE NEGATIVE (NEGATIVE); COLOR,URINE COLORLESS (YELLOW); GLUCOSE, URINE (UA) NEGATIVE (NEGATIVE); KETONES,URINE NEGATIVE (NEGATIVE); LEUKOCYTE ESTERASE ,URINE NEGATIVE Leu/uL (NEGATIVE); NITRATE,URINE NEGATIVE (NEGATIVE); OCCULT BLOOD,URINE NEGATIVE (NEGATIVE); PH,URINE 5.5 (5.0-8.0); PROTEIN,URINE NEGATIVE (NEGATIVE); UROBILINOGEN,URINE 0.2 mg/dL (0.2-1.0)
--- NOTE | 2024-12-28 12:00 | NUR ---
HOME MEDICATIONS IN SYSTEM, PENDING TO BE RECONSILED BY PHYSICIAN.
[2024-12-28 12:03] LABS: ADD UA MICROSCOPIC NO
--- NOTE | 2024-12-28 12:36 | HP ---
[facility] HISTORY AND PHYSICAL Date of Service: Dec 28, 2024 Time of Service: 12:36 REVIEW OF SYSTEMS CONSTITUTIONAL: Denies fevers, chills, or night sweats. No unintentional weight loss reported. NEUROLOGICAL: Denies headache, amaurosis fugax, motor weakness, sensory deficit, vertigo/spinning sensation, gait abnormalities, or tremors. ENT: No hearing loss, otalgia, otorrhea, rhinitis, rhinorrhea, hoarseness, or sore throat. CARDIOVASCULAR: Denies any exertional angina, dyspnea on exertion, orthopnea, paroxysmal nocturnal dyspnea, palpitations, life-threatening arrhythmias, claudication. PULMONARY: Denies any shortness of breath, cough, phlegm/sputum, hemoptysis, pleuritic chest pain. SLEEP: Denies morning headaches, daytime somnolence or napping. Denies difficulty falling asleep, staying asleep, waking from sleep. Denies knowledge of snoring. GASTROINTESTINAL: Denies any type of dysphagia to either liquids or solids. Denies nausea, vomiting, pyrosis, early satiety, abdominal pain, diarrhea, constipation, or changes in stool consistency or caliber. Denies coffee-ground emesis, hematemesis, hematochezia, or melanotic stools. GENITOURINARY: Denies frequency, urgency, nocturia, hematuria or incontinence (Storage/Irritative symptoms.) Low urinary stream, straining to void, urinary intermittency or hesitancy, splitting of the voiding stream, terminal dribbling. ENDOCRINOLOGIC: Denies polyuria, polydipsia, polyphagia or heat/cold intolerances. HEMATOLOGIC: Denies thrombophilia/previous clots, or coagulopathy/bleeding disorders. ONCOLOGIC: Denies personal history of malignancy. DERMATOLOGIC: Denies rashes or pruritus. PSYCHIATRIC: Denies any suicidal or homicidal ideation. Denies hallucinations. PAST MEDICAL HISTORY: [ ] PAST SURGICAL HISTORY: [ ] PAST SOCIAL HISTORY: [ ] FAMILY HISTORY: [ ] Coded Allergies: codeine (Verified Adverse Reaction, Mild, 02/09/24) NAUSEA, VOMITING PHYSICAL EXAM GENERAL APPEARANCE: The patient is awake, alert, and oriented, in no acute cardiopulmonary distress. NEUROLOGICAL: Cranial nerves II-XII grossly intact. Motor is 5/5 in bilateral upper and lower extremities proximal to distal. No sensory deficits. HEENT: Face is symmetric. Pupils are equal and reactive. Extraocular movements are intact. NECK: Supple. No JVD. No thyromegaly. No submental, submandibular, pre- /postauricular, occipital or supraclavicular lymphadenopathy. CHEST: Normal chest expansion. No Telemetry. LUNGS: Absence of any rales, rhonchi or any wheezing. CARDIOVASCULAR: Regular. S1 and S2 normal. No appreciable rubs, murmurs or gallops. ABDOMEN: Soft, nontender, and nondistended. There is no rebound, voluntary guarding, or rigidity. : Deferred. No Mcmillan. EXTREMITIES: Non-edematous and not cyanotic. No clubbing. Good capillary refill. SKIN: No skin breakdown. Vital Sign (Last 24 Hours) 12/28/24 11:44 Temp 98.1 Pulse 52 Resp 16 B/P (MAP) 146/79 Pulse Ox 97 O2 Delivery Room Air* O2 Flow Rate 0 FiO2 21 LABS: Laboratory: Test 12/28/24 11:32 12/28/24 09:44 Range/Units Urine Color COLORLESS YELLOW Urine Appearance CLEAR CLEAR Urine pH 5.5 5.0-8.0 Urine Specific [place] 1.005 1.001-1.031 Urine Protein NEGATIVE NEGATIVE mg/dL Urine Glucose (UA) NEGATIVE NEGATIVE mg/dL Urine Ketones NEGATIVE NEGATIVE mg/dL Urine Occult Blood NEGATIVE NEGATIVE Urine Nitrate NEGATIVE NEGATIVE Urine Bilirubin NEGATIVE NEGATIVE mg/dL Urine Urobilinogen 0.2 0.2-1.0 mg/dL Urine Leukocyte Esterase NEGATIVE NEGATIVE Christina/uL White Blood Count 8.9 4.8-10.8 K/uL Red Blood Count 3.34 L 4.00-5.50 MIL/uL Hemoglobin 11.0 L 12.0-16.0 g/dL Hematocrit 33.9 L 36-48 % Mean Corpuscular Volume 101.5 H 79-99 fL Mean Corpuscular Hemoglobin 32.9 27.0-33.0 pg Mean Corpuscular Hemoglobin Concent 32.4 32.0-36.0 g/dL Red Cell Distribution Width 13.9 11.0-15.5 % Platelet Count 178 130-400 K/uL Mean Platelet Volume 10.0 7.5-10.5 fL Immature Granulocyte % (Auto) 0.2 0-1 % Neutrophils (%) (Auto) 67.4 40.0-77.0 % Lymphocytes (%) (Auto) 22.7 21.0-51.0 % Monocytes (%) (Auto) 6.6 3.0-13.0 % Eosinophils (%) (Auto) 2.8 0.0-8.0 % Basophils (%) (Auto) 0.3 0.0-5.0 % Neutrophils # (Auto) 6.0 1.8-7.7 K/uL Lymphocytes # (Auto) 2.0 1.0-4.8 K/uL Monocytes # (Auto) 0.6 0.1-1.0 K/uL Eosinophils # (Auto) 0.25 0.00-0.70 K/uL Basophils # (Auto) 0.03 0.00-0.20 K/uL Absolute Immature Granulocyte (auto 0.02 0-1 K/uL Nucleated Red Blood Cells 0.0 0.0-0.19 % Prothrombin Time 12.5 H 9.6-11.6 SEC Prothromb Time International Ratio 1.20 H 0.85-1.15 Activated Partial Thromboplast Time 25.1 L 26.3-35.5 SEC Sodium Level 138 136-145 mmol/L Potassium Level 4.4 3.5-5.1 mmol/L Chloride Level 104 101-111 mmol/L Carbon Dioxide Level 26 21-32 mmol/L Blood Urea Nitrogen 21 H 7-18 mg/dL Creatinine 1.2 H 0.5-1.0 mg/dL Glomerular Filtration Rate Calc 46 >90 mL/min Random Glucose 125 H 70-105 mg/dL Total Calcium 9.0 8.5-10.1 mg/dL Magnesium Level 2.20 1.80-2.40 mg/dL Total Creatine Kinase 100 21-232 U/L Troponin I High Sensitivity 10 4-50 ng/L B-Type Natriuretic Peptide 108 H 0-100 pg/mL DIAGNOSTICS / RADIOLOGY: [ ] ASSESSMENT: [ ] PLAN: [ ] JUNO HARTLEY MD Dec 28, 2024 12:36
[2024-12-28] MEDS ORDERED: PoTASSium chloRIDE 20MEQ ER 20 MEQ ERTAB PO PRN (14:00)
[2024-12-28] MEDS ORDERED: PoTASSium chl 10% ELIXIR 20MEQ 20 MEQ/15 ML UDCUP PO PRN (14:00)
[2024-12-28] MEDS ORDERED: PoTASSium chloRIDE 20MEQ/100ML 100 ML IV PRN (14:00)
[2024-12-28] MEDS ORDERED: MAGNESIUM 2GM PREMIX 50ML 50 ML IV SCH (14:00)
[2024-12-28] MEDS ORDERED: ondanSETRON 4MG INJ IVP PRN (14:00)
[2024-12-28 14:12] LABS: HEMOGLOBIN A1C 6.2 % (4.0-6.0)
[2024-12-28 14:19] LABS: ALBUMIN 4.2 g/dL (3.5-5.0); BILIRUBIN,DIRECT 0.3 mg/dL (0.0-0.3); BILIRUBIN,TOTAL 0.8 mg/dL (0.2-1.0); THYROID STIMULATING HORMONE 2.33 uIU/mL (0.36-3.74); TOTAL PROTEIN, SERUM 7.4 g/dL (6.0-8.3)
[2024-12-28 14:28] LABS: SARS-CoV-2, RNA, NAAT NEGATIVE SARS CoV-2 (NEGATIVE)
[2024-12-28 14:33] LABS: INFLUENZA TYPE A Negative For Type A (NEGATIVE); INFLUENZA TYPE B Negative For Type B (NEGATIVE)
[2024-12-28] MEDS: furoSEMIDE 20MG VIAL IV SCH (14:56)
--- NOTE | 2024-12-28 14:56 | NUR ---
AMIODARONE DRIP WAS STARTED WITH THE ASSISSTANCE OF CHARGE NURSE MR. HAMPTON; FOLLOWING HOSPITAL POLICIES. PIV PATENT, NO SIGNS OF PIV INFILTRATED. EDUCATED PATIENT ON PLAN OF CARE. PATIENT AND SON VERBALIZED UNDERSTANDING.
--- NOTE | 2024-12-28 15:02 | HMCIMG ---
Exam Type: US VENOUS DOPPLER BILATERAL Clinical Information: bilateral lower extremity edema, r/o any DVT Comparison: None Findings: The examination shows normal deep venous system. There is normal compressibility at all levels. There is no intraluminal clot. There is no occlusion. Adequate response is obtained on augmentation. Impression: No evidence of DVT.
--- NOTE | 2024-12-28 15:03 | NUR ---
DCP: home Pt currently lives on the same property as her son Angel [phone] and VICKI Real [phone]. pt is able to complete ADLs independently. Pt uses a walker or cane to ambulate. Pt does not currently have any home health services. Pt [place] want to return home at [place] and family will assist with transportation. Addendum: 12/28/24 at 1508 by PETRA HORTA SS Amended: Links added.
--- NOTE | 2024-12-28 15:39 | HP ---
[facility] Date of Service: Dec 28, 2024 Time of Service: 15:29 HISTORY OF PRESENT ILLNESS: Date of service: 12/28/2024, 79-year-old female with underlying history of hypertension, hyperlipidemia, obesity, obstructive sleep apnea, history of atrial fibrillation with prior history of prior cardioversions, history of Watchman device about five years ago, recent history of cardioversion in 11/2024 presented to the ER for further evaluation of shortness of breath. Patient states that symptoms have been ongoing for the past 7-10 days. Symptoms have been accompanied by progressive shortness of breath, and dyspnea on exertion. Patient states that she is able to walk about 100 ft before she gets short of breath. She has been having PND, orthopnea and progressive lower extremity swelling. Patient takes Lasix 20 mg at home. She recently had a 2D echocardiogram done yesterday in outpatient cardiology clinic. She is unsure if she has prior diagnosis of heart failure. Patient denies any active chest pain or pleurisy. On presentation to the hospital, patient was noted to be afebrile. EKG showed findings of atrial fibrillation with ventricular bigeminy. Labs on presentation showed WBC count of 8900, hemoglobin of 11.0, platelet count of 449499. BMP showed sodium of 138, potassium 4.4, BUN of 21, creatinine of 1.2, magnesium 2.2 Chest x-ray showed pulmonary vascular congestion Patient was seen by Dr. Omer by Cardiology at bedside, patient will be started on amiodarone drip per protocol for management of recurrent atrial fibrillation. We will start patient on IV diuresis with Lasix as well for management of heart failure exacerbation. We will await results of 2D echocardiogram that was done as outpatient to see if patient has significant systolic/diastolic heart f ailure. REVIEW OF SYSTEMS CONSTITUTIONAL: Denies fevers, chills, or night sweats. No unintentional weight loss reported. NEUROLOGICAL: Denies headache, amaurosis fugax, motor weakness, sensory deficit, vertigo/spinning sensation, gait abnormalities, or tremors. ENT: No hearing loss, otalgia, otorrhea, rhinitis, rhinorrhea, hoarseness, or sore throat. CARDIOVASCULAR: Lower extremity swelling, dyspnea on exertion, PND, orthopnea PULMONARY: Denies any shortness of breath, cough, phlegm/sputum, hemoptysis, pleuritic chest pain. SLEEP: Denies morning headaches, daytime somnolence or napping. Denies diff iculty falling asleep, staying asleep, waking from sleep. Denies knowledge of snoring. GASTROINTESTINAL: Denies any type of dysphagia to either liquids or solids. Denies nausea, vomiting, pyrosis, early satiety, abdominal pain, diarrhea, constipation, or changes in stool consistency or caliber. Denies coffee-ground emesis, hematemesis, hematochezia, or melanotic stools. GENITOURINARY: Denies frequency, urgency, nocturia, hematuria or incontinence (Storage/Irritative symptoms.) Low urinary stream, straining to void, urinary intermittency or hesitancy, splitting of the voiding stream, terminal dribbling. ENDOCRINOLOGIC: Denies polyuria, polydipsia, polyphagia or heat/cold in tolerances. HEMATOLOGIC: Denies thrombophilia/previous clots, or coagulopathy/bleeding disorders. ONCOLOGIC: Denies personal history of malignancy. DERMATOLOGIC: Denies rashes or pruritus. PSYCHIATRIC: Denies any suicidal or homicidal ideation. Denies hallucinations. PAST MEDICAL HISTORY: Hypertension, hyperlipidemia, obstructive sleep apnea, prior history of atrial fibrillation with multiple previous cardioversion, ablation and history of Watchman device placement about five years ago, recent history of cardioversion in 11/[address] Barboza PAST SURGICAL HISTORY: History of pacemaker placement, history of cardiac ablation, history of Watchman device placement about five years ago PAST SOCIAL HISTORY: Patient denies active smoking or alcohol consumption, independent with ADLs and IADLs FAMILY HISTORY: Denies pertinent family history Allergies: Patient has allergic reaction to codeine Home medications: Family will be bringing list of home medications to be reconciled and updated Coded Allergies: codeine (Verified Adverse Reaction, Mild, 02/09/24) NAUSEA, VOMITING PHYSICAL EXAM GENERAL APPEARANCE: The patient is awake, alert, and oriented, in no acute cardiopulmonary distress. NEUROLOGICAL: Cranial nerves II-XII grossly intact. Motor is 5/5 in bilateral upper and lower extremities proximal to distal. No sensory deficits. HEENT: Face is symmetric. Pupils are equal and reactive. Extraocular movements are intact. NECK: Supple. No JVD. No thyromegaly. No submental, submandibular, pre- /postauricular, occipital or supraclavicular lymphadenopathy. CHEST: Normal chest expansion. No Telemetry. LUNGS: Absence of any rales, rhonchi or any wheezing. CARDIOVASCULAR: irregular. S1 and S2 normal. No appreciable rubs, murmurs or gallops. ABDOMEN: Soft, nontender, and nondistended. There is no rebound, voluntary guarding, or rigidity. : Deferred. No Mcmillan. EXTREMITIES: 2+ pitting edema of the bilateral lower extremities. No clubbing. Good capillary refill. SKIN: No skin breakdown. Vital Sign (Last 24 Hours) 12/28/24 11:44 Temp 98.1 Pulse 52 Resp 16 B/P (MAP) 146/79 Pulse Ox 97 O2 Delivery Room Air* O2 Flow Rate 0 FiO2 21 LABS: Laboratory: Test 12/28/24 11:32 12/28/24 09:44 Range/Units Urine Color COLORLESS YELLOW Urine Appearance CLEAR CLEAR Urine pH 5.5 5.0-8.0 Urine Specific [place] 1.005 1.001-1.031 Urine Protein NEGATIVE NEGATIVE mg/dL Urine Glucose (UA) NEGATIVE NEGATIVE mg/dL Urine Ketones NEGATIVE NEGATIVE mg/dL Urine Occult Blood NEGATIVE NEGATIVE Urine Nitrate NEGATIVE NEGATIVE Urine Bilirubin NEGATIVE NEGATIVE mg/dL Urine Urobilinogen 0.2 0.2-1.0 mg/dL Urine Leukocyte Esterase NEGATIVE NEGATIVE [place]/uL White Blood Count 8.9 4.8-10.8 K/uL Red Blood Count 3.34 L 4.00-5.50 MIL/uL Hemoglobin 11.0 L 12.0-16.0 g/dL Hematocrit 33.9 L 36-48 % Mean Corpuscular Volume 101.5 H 79-99 fL Mean Corpuscular Hemoglobin 32.9 27.0-33.0 pg Mean Corpuscular Hemoglobin Concent 32.4 32.0-36.0 g/dL Red Cell Distribution Width 13.9 11.0-15.5 % Platelet Count 178 130-400 K/uL Mean Platelet Volume 10.0 7.5-10.5 fL Immature Granulocyte % (Auto) 0.2 0-1 % Neutrophils (%) (Auto) 67.4 40.0-77.0 % Lymphocytes (%) (Auto) 22.7 21.0-51.0 % Monocytes (%) (Auto) 6.6 3.0-13.0 % Eosinophils (%) (Auto) 2.8 0.0-8.0 % Basophils (%) (Auto) 0.3 0.0-5.0 % Neutrophils # (Auto) 6.0 1.8-7.7 K/uL Lymphocytes # (Auto) 2.0 1.0-4.8 K/uL Monocytes # (Auto) 0.6 0.1-1.0 K/uL Eosinophils # (Auto) 0.25 0.00-0.70 K/uL Basophils # (Auto) 0.03 0.00-0.20 K/uL Absolute Immature Granulocyte (auto 0.02 0-1 K/uL Nucleated Red Blood Cells 0.0 0.0-0.19 % Erythrocyte Sedimentation Rate 18 0-30 MM/HR Prothrombin Time 12.5 H 9.6-11.6 SEC Prothromb Time International Ratio 1.20 H 0.85-1.15 Activated Partial Thromboplast Time 25.1 L 26.3-35.5 SEC Sodium Level 138 136-145 mmol/L Potassium Level 4.4 3.5-5.1 mmol/L Chloride Level 104 101-111 mmol/L Carbon Dioxide Level 26 21-32 mmol/L Blood Urea Nitrogen 21 H 7-18 mg/dL Creatinine 1.2 H 0.5-1.0 mg/dL Glomerular Filtration Rate Calc 46 >90 mL/min Random Glucose 125 H 70-105 mg/dL Hemoglobin A1c 6.2 H 4.0-6.0 % Estimated Average Glucose (eAG) 131 H 70-126 mg/dL Total Calcium 9.0 8.5-10.1 mg/dL Magnesium Level 2.20 1.80-2.40 mg/dL Total Bilirubin 0.8 0.2-1.0 mg/dL Direct Bilirubin 0.3 0.0-0.3 mg/dL Aspartate Amino Transf (AST/SGOT) 23 10-37 U/L Alanine Aminotransferase (ALT/SGPT) 27 12-78 U/L Alkaline Phosphatase 66 50-136 U/L Total Creatine Kinase 100 21-232 U/L Troponin I High Sensitivity 10 4-50 ng/L C-Reactive Protein, Quantitative 2.20 0.5-3.0 mg/L B-Type Natriuretic Peptide 108 H 0-100 pg/mL Total Protein 7.4 6.0-8.3 g/dL Albumin 4.2 3.5-5.0 g/dL Triglycerides Level 72 30-200 mg/dL Cholesterol Level 100 # <200 mg/dL LDL Cholesterol 31 0-99 mg/dL HDL Cholesterol 62 35-85 mg/dL Procalcitonin < 0.05 L 0.05-0.5 ng/mL Thyroid Stimulating Hormone (TSH) 2.33 0.36-3.74 uIU/mL Influenza Type A Antigen Negative For Type A NEGATIVE Influenza Type B Antigen Negative For Type B NEGATIVE SARS-CoV-2, RNA, NAAT NEGATIVE SARS CoV-2 NEGATIVE Current Medications Medications (Trade) Dose Ordered Sig/Ruddy Route PRN Reason Start Time Stop Time Status Last Admin Dose Admin Acetaminophen (TYLenol 325MG TAB) 650 mg Q6H PRN PO MILD PAIN (1-3) 12/28/24 14:00 01/27/25 13:59 Amiodarone HCl 540 mg/Dextrose 300 ml @ 16.667 mls/ hr PROTOCOL IV 12/28/24 14:00 01/27/25 13:59 Enoxaparin Sodium (Lovenox) 40 mg DAILY SQ 12/29/24 09:00 01/28/25 08:59 Furosemide (LASix 20MG VIAL) 20 mg Q8H IV 12/28/24 14:00 01/27/25 13:59 12/28/24 14:56 20 MG Magnesium Sulfate 50 ml @ 0 mls/hr PROTOCOL IV 12/28/24 14:00 01/27/25 13:59 Ondansetron HCl (zoFRAN 4MG INJ) 4 mg Q6H PRN IVP NAUSEA/VOMITING 12/28/24 14:00 01/27/25 13:59 Potassium Chloride 100 ml @ 100 mls/hr AD PRN IV POTASSIUM PROTOCOL 12/28/24 14:00 01/27/25 13:59 Potassium Chloride (K-Dur/Klor-Con 20meq) 20 meq AD PRN PO POTASSIUM PROTOCOL 12/28/24 14:00 01/27/25 13:59 Potassium Chloride (KCl 10% Elixir 20meq/15ml) 20 meq AD PRN PO POTASSIUM PROTOCOL 12/28/24 14:00 01/27/25 13:59 DIAGNOSTICS / RADIOLOGY: SERVICE [id number] REASON: SOB ORDERING PHYSICIAN: DULCE SAMUEL MD PROCEDURE: CXR1VW - CHEST 1VW Exam Type: CHEST 1VW Clinical Information: SOB Comparison: None Findings: Left cardiac pacemaker is noted with leads in place. There is cardiomegaly. There is prominence of the vascular markings consistent with pulmonary venous congestion. IMPRESSION: Findings consistent with pulmonary venous congestion. DICTATED BY: DANAY GHOSH MD DATE: 12/28/24 0953 ELECTRONICALLY SIGNED BY: DANAY GHOSH MD DATE: 12/28/24 0956 SERVICE [id number] REASON: bilateral lower extremity edema, r/o any DVT ORDERING PHYSICIAN: MICHELE DIAZ MD PROCEDURE: VENOUS CAYETANO - US VENOUS DOPPLER BILATERAL Exam Type: US VENOUS DOPPLER BILATERAL Clinical Information: bilateral lower extremity edema, r/o any DVT Comparison: None Findings: The examination shows normal deep venous system. There is normal compressibility at all levels. There is no intraluminal clot. There is no occlusion. Adequate response is obtained on augmentation. Impression: No evidence of DVT. DICTATED BY: DANAY GHOSH MD DATE: 12/28/24 1459 ELECTRONICALLY SIGNED BY: DANAY GHOSH MD DATE: 12/28/24 1502 ASSESSMENT: Acute heart failure exacerbation, pending 2D echocardiogram to assess for systolic/diastolic function, POA Acute hypoxemic respiratory failure, POA Paroxysmal atrial fibrillation with ventricular bigeminy, POA History of Watchman device placement about five years ago, POA History of prior cardioversions and cardiac ablation for atrial fibrillation, POA Hypertension, POA Hyperlipidemia, POA Obstructive sleep apnea maintained on outpatient CPAP, POA Obesity, POA PLAN: Patient will be admitted to cardiac telemetry floor Continue with supplemental O2 therapy to maintain oxygen saturation greater than 92% Patient will be started on IV amiodarone protocol for management of atrial fibrillation IV Lasix 20 mg q8h for IV diuresis We will maintain K greater than four and magnesium greater than two We will keep patient on telemetry for the next 24-48 hours to assess PVC burden We will follow up results of 2D echocardiogram to assess LVEF, further workup based on results of 2D echocardiogram if cardiomyopathy is confirmed Continue with rest of the home medications Patient is currently not only on aspirin as outpatient, she states that she stopped Eliquis about two weeks ago, patient does have history of Watchman device placement, confirmed with Cardiology, we will hold off on anticoagulation for now She may benefit from EP consultation this admission DVT prophylaxis with Lovenox 40 mg subcutaneous daily GI prophylaxis with Protonix Patient to resume CPAP tonight for management of obstructive sleep apnea All labs will be repeated in the morning Date of service: 12/28/2024 Michele Diaz MD Advanced Care Planning: Which of the following were discussed: Hospice care: Yes __ No _X_ Therapeutic options: Yes _X_ No __ Advance directives: Yes X__ No __ Other discussions: Discussed with who?: Patient Voluntary nature of this service was explained to the patient? Yes _x_ No __ Amount of time spent: 20 minutes MICHELE DIAZ MD Dec 28, 2024 15:39
[2024-12-28] MEDS ORDERED: VERA120C3 PO (15:56)
--- NOTE | 2024-12-28 16:00 | NUR ---
PLACED 22G ON RIGHT WRIST, PIV PATENT, AND FLUSHED WITH NORMAL SALINE.
--- NOTE | 2024-12-28 17:00 | NUR ---
HOME MEDICATIONS RECONSILED
[2024-12-28 20:49] LABS: CREATININE 1.2 mg/dL (0.5-1.0); POTASSIUM 3.6 mmol/L (3.5-5.1)
[2024-12-28] MEDS: AMIODARONE 540 MG/D5W 300ML (0.5MG/MIN) IV SCH (20:50)
[2024-12-28] MEDS: VERAPAMIL HCL 120 MG PO SCH (21:00)
[2024-12-28] MEDS: atorVAStatin 40 MG TABLET PO SCH (21:39)
[2024-12-28] MEDS: VERAPAMIL HCL 240 MG SRTAB PO ONE (21:39)
[2024-12-29] VITALS (8 sets, daily range): BP systolic 116–135; BP diastolic 42–68; PULSE 43–70; RESP 16–20; TEMP 97.8–98.8; O2SAT 92–97
[2024-12-29] MEDS: CHOLECALCIFEROL 10 MCG PO SCH (09:00)
[2024-12-29 09:20] LABS: BASOPHILS # (AUTO) 0.04 K/uL (0.00-0.20); BASOPHILS % (AUTO) 0.5 % (0.0-5.0); EOSINOPHILS # (AUTO) 0.25 K/uL (0.00-0.70); EOSINOPHILS % (AUTO) 3.3 % (0.0-8.0); HEMATOCRIT 32.4 % (36-48); IMMATURE GRANULOCYTE ABSOLUTE 0.02 K/uL (0-1); LYMPHOCYTES # (AUTO) 1.8 K/uL (1.0-4.8); LYMPHOCYTES % (AUTO) 24.1 % (21.0-51.0); MEAN CORPUSCULAR HEMOGLOBIN 32.9 pg (27.0-33.0); MEAN CORPUSCULAR HGB CONC 32.7 g/dL (32.0-36.0); MEAN CORPUSCULAR VOLUME 100.6 fL (79-99); MONOCYTES # (AUTO) 0.5 K/uL (0.1-1.0); MONOCYTES % (AUTO) 6.1 % (3.0-13.0); NEUTROPHILS % (AUTO) 65.7 % (40.0-77.0); PLATELET COUNT (AUTO) 166 K/uL (130-400); RED BLOOD CELL COUNT(AUTO) 3.22 MIL/uL (4.00-5.50); WHITE BLOOD COUNT (AUTO) 7.6 K/uL (4.8-10.8)
--- NOTE | 2024-12-29 09:27 | CONS ---
[facility] CARDIOLOGY CONSULTATION NOTE Date Patient Seen: Dec 28, 2024 Reason for Consultation: [a-fib, volume overload ] History of Present Illness: [Patient is a 79-year-old female with underlying history of hypertension, hyperlipidemia, obesity, obstructive sleep apnea, history of atrial fibrillation with prior history of prior cardioversions, history of Watchman device about five years ago, recent history of cardioversion in 11/2024 presented to the ER for further evaluation of shortness of breath. On December 06, her amiodarone was decreased 200 mg bid to qd. At that visit, she was noted to have frequent PVCs and was started on verapamil. She has been following up with Dr Barboza most recently. Outpatient 2d echo showed normal LV size for BSA 2.6 cm/m2, LVEF 35- 40%, mild left atrial enlargement. Patient states that symptoms have been ongoing for the past 7-10 days. Symptoms have been accompanied by progressive shortness of breath, and dyspnea on exertion. Patient states that she is able to walk about 100 ft before she gets short of breath. She has been having PND, orthopnea and progressive lower extremity swelling. Patient takes Lasix 20 mg at home. EKG showed findings of atrial fibrillation with ventricular bigeminy. BMP showed sodium of 138, potassium 4.4, BUN of 21, creatinine of 1.2, magnesium 2.2. Chest x-ray showed pulmonary vascular congestion ] Past Medical History: [ ] Past Surgical History: [ ] Family History: [ ] Social History: [ ] Habits: [Never] smoker. [Denies] alcohol consumption. [Denies] illicit drug use Home Meds: [ ] Current Meds: [ ] Review of Systems: CONST: [No fever, fatigue, or weight changes.] EYES: [No recent vision problems.] ENT: [No congestion, ear pain, or sore throat.] C/V: [+ edema.] RESP: [+shortness of breath.] GI: [No abdominal pain, nausea, vomiting, constipation, or diarrhea.] : [No incontinence or dysuria.] SKIN: [No rash.] NEURO: [No headache, focal numbness or weakness, dizziness, or seizures.] PSYCH: [No depression or anxiety.] HEME: [No abnormal bruising or bleeding.] LYMPH: [No swollen glands.] Physical Examination: GENERAL: [No acute distress.] HEAD: [Normal with no signs of head trauma.] EYES: [PERRLA, EOMI, conjunctiva and sclera normal.] ENT: [Hearing grossly intact, normal oropharynx.] NECK: [Supple without JVD. There is no tenderness, lymphadenopathy, or masses. No thyromegaly. Normal carotid upstrokes without bruits.] LUNGS: [rales b/l.] HEART: [irregular rate and rhythm. Normal S1 and S2 without mumurs, gallop or rub.] VASC: [Peripheral pulses +2 bilaterally.] ABD: [Bowel sounds normal, soft, nontender, no masses, no organomegaly. No audible bruits.] : [Not examined] LYMPH: [No lymphadenopathy noted.] EXT: [3+ edema.] SKIN: [No rashes or lesions noted.] NEURO: [Awake, alert, and oriented x3. No focal sensory or strength deficits noted.] Vital Signs (last 8hr) Date Time Temp Pulse Resp B/P (MAP) Pulse Ox O2 Delivery O2 Flow Rate FiO2 12/29/24 08:55 98.1 43 20 123/48 96 Room Air 12/29/24 07:39 98.2 74 16 110/42 95 Room Air* 0 21 12/29/24 07:07 N/A Room Air 21 12/29/24 06:15 98.1 83 22 133/58 97 Nasal Cannula* 2 28 12/29/24 02:39 98.2 74 20 149/72 97 Nasal Cannula* 2 28 Laboratory: [ ] Hematology Labs: Test 12/28/24 09:44 Range/Units White Blood Count 8.9 4.8-10.8 K/uL Red Blood Count 3.34 L 4.00-5.50 MIL/uL Hemoglobin 11.0 L 12.0-16.0 g/dL Hematocrit 33.9 L 36-48 % Mean Corpuscular Volume 101.5 H 79-99 fL Mean Corpuscular Hemoglobin 32.9 27.0-33.0 pg Mean Corpuscular Hemoglobin Concent 32.4 32.0-36.0 g/dL Red Cell Distribution Width 13.9 11.0-15.5 % Platelet Count 178 130-400 K/uL Mean Platelet Volume 10.0 7.5-10.5 fL Immature Granulocyte % (Auto) 0.2 0-1 % Neutrophils (%) (Auto) 67.4 40.0-77.0 % Lymphocytes (%) (Auto) 22.7 21.0-51.0 % Monocytes (%) (Auto) 6.6 3.0-13.0 % Eosinophils (%) (Auto) 2.8 0.0-8.0 % Basophils (%) (Auto) 0.3 0.0-5.0 % Neutrophils # (Auto) 6.0 1.8-7.7 K/uL Lymphocytes # (Auto) 2.0 1.0-4.8 K/uL Monocytes # (Auto) 0.6 0.1-1.0 K/uL Eosinophils # (Auto) 0.25 0.00-0.70 K/uL Basophils # (Auto) 0.03 0.00-0.20 K/uL Absolute Immature Granulocyte (auto 0.02 0-1 K/uL Nucleated Red Blood Cells 0.0 0.0-0.19 % Erythrocyte Sedimentation Rate 18 0-30 MM/HR Chemistry Labs: Test 12/28/24 20:24 12/28/24 09:44 Range/Units Sodium Level 141 136-145 mmol/L Potassium Level 3.6 3.5-5.1 mmol/L Chloride Level 106 101-111 mmol/L Carbon Dioxide Level 27 21-32 mmol/L Blood Urea Nitrogen 20 H 7-18 mg/dL Creatinine 1.2 H 0.5-1.0 mg/dL Glomerular Filtration Rate Calc 46 >90 mL/min Random Glucose 116 H 70-105 mg/dL Total Calcium 9.0 8.5-10.1 mg/dL Hemoglobin A1c 6.2 H 4.0-6.0 % Estimated Average Glucose (eAG) 131 H 70-126 mg/dL Magnesium Level 2.20 1.80-2.40 mg/dL Total Bilirubin 0.8 0.2-1.0 mg/dL Direct Bilirubin 0.3 0.0-0.3 mg/dL Aspartate Amino Transf (AST/SGOT) 23 10-37 U/L Alanine Aminotransferase (ALT/SGPT) 27 12-78 U/L Alkaline Phosphatase 66 50-136 U/L Total Creatine Kinase 100 21-232 U/L Troponin I High Sensitivity 10 4-50 ng/L C-Reactive Protein, Quantitative 2.20 0.5-3.0 mg/L B-Type Natriuretic Peptide 108 H 0-100 pg/mL Total Protein 7.4 6.0-8.3 g/dL Albumin 4.2 3.5-5.0 g/dL Triglycerides Level 72 30-200 mg/dL Cholesterol Level 100 # <200 mg/dL LDL Cholesterol 31 0-99 mg/dL HDL Cholesterol 62 35-85 mg/dL Procalcitonin < 0.05 L 0.05-0.5 ng/mL Thyroid Stimulating Hormone (TSH) 2.33 0.36-3.74 uIU/mL Coagulation Labs: Test 12/28/24 09:44 Range/Units Prothrombin Time 12.5 H 9.6-11.6 SEC Prothromb Time International Ratio 1.20 H 0.85-1.15 Activated Partial Thromboplast Time 25.1 L 26.3-35.5 SEC Diagnostics / Radiology: [Copy/Paste Echos/Imaging Report here] Assessment: [Acute heart failure exacerbation, pending 2D echocardiogram to assess for systolic/diastolic function, POA Acute hypoxemic respiratory failure, POA Paroxysmal atrial fibrillation with ventricular bigeminy, POA History of Watchman device placement about five years ago, POA History of prior cardioversions and cardiac ablation for atrial fibrillation, POA Hypertension, POA Hyperlipidemia, POA Obstructive sleep apnea maintained on outpatient CPAP, POA Obesity, POA ] Plan: [#A-fib, paroxysmal s/p Watchman device not on anticoagulation -Outpatient 2d echo 12/27/2024 showed normal LV size for BSA 2.6 cm/m2, LVEF 35- 40%, mild left atrial enlargement. -recent DCCV 11/[address] Barboza -now with frequent PVCs, started amiodarone IV protocol #HFrEF LVEF 35-40% -Trop neg x1 -likely tachycardia induced -lasix, 20 mg IV q8, lisinopril 40 mg qd -CCTA 2022 with 20-30% proximal LAD stenosis, pending repeat study if converts into normal rhythm otherwise will plan for inpatient lexiscan ] DENEEN COREAS MD Dec 29, 2024 09:27
--- NOTE | 2024-12-29 09:29 | PN ---
[facility] CARDIOLOGY PROGRESS NOTE Date Patient Seen: Dec 29, 2024 Time of Visit: 09:28 Interval History: [ 1650 urine output, CXR similar congestion as yesterday, will increase lasix] Physical Examination: GENERAL: [No acute distress.] HEAD: [Normal with no signs of head trauma.] EYES: [PERRLA, EOMI, conjunctiva and sclera normal.] ENT: [Hearing grossly intact, normal oropharynx.] NECK: [Supple without JVD. There is no tenderness, lymphadenopathy, or masses. No thyromegaly. Normal carotid upstrokes without bruits.] LUNGS: [rales b/l.] HEART: [irregular rate and rhythm. Normal S1 and S2 without mumurs, gallop or rub.] VASC: [Peripheral pulses +2 bilaterally.] ABD: [Bowel sounds normal, soft, nontender, no masses, no organomegaly. No audible bruits.] : [Not examined] LYMPH: [No lymphadenopathy noted.] EXT: [3+ edema.] SKIN: [No rashes or lesions noted.] NEURO: [Awake, alert, and oriented x3. No focal sensory or strength deficits noted.] Laboratory: [ ] Hematology Labs: Test 12/29/24 09:02 12/28/24 09:44 Range/Units White Blood Count 7.6 4.8-10.8 K/uL Red Blood Count 3.22 L 4.00-5.50 MIL/uL Hemoglobin 10.6 L 12.0-16.0 g/dL Hematocrit 32.4 L 36-48 % Mean Corpuscular Volume 100.6 H 79-99 fL Mean Corpuscular Hemoglobin 32.9 27.0-33.0 pg Mean Corpuscular Hemoglobin Concent 32.7 32.0-36.0 g/dL Red Cell Distribution Width 14.0 11.0-15.5 % Platelet Count 166 130-400 K/uL Mean Platelet Volume 9.9 7.5-10.5 fL Immature Granulocyte % (Auto) 0.3 0-1 % Neutrophils (%) (Auto) 65.7 40.0-77.0 % Lymphocytes (%) (Auto) 24.1 21.0-51.0 % Monocytes (%) (Auto) 6.1 3.0-13.0 % Eosinophils (%) (Auto) 3.3 0.0-8.0 % Basophils (%) (Auto) 0.5 0.0-5.0 % Neutrophils # (Auto) 5.0 1.8-7.7 K/uL Lymphocytes # (Auto) 1.8 1.0-4.8 K/uL Monocytes # (Auto) 0.5 0.1-1.0 K/uL Eosinophils # (Auto) 0.25 0.00-0.70 K/uL Basophils # (Auto) 0.04 0.00-0.20 K/uL Absolute Immature Granulocyte (auto 0.02 0-1 K/uL Nucleated Red Blood Cells 0.0 0.0-0.19 % Erythrocyte Sedimentation Rate 18 0-30 MM/HR Chemistry Labs: Test 12/28/24 20:24 12/28/24 09:44 Range/Units Sodium Level 141 136-145 mmol/L Potassium Level 3.6 3.5-5.1 mmol/L Chloride Level 106 101-111 mmol/L Carbon Dioxide Level 27 21-32 mmol/L Blood Urea Nitrogen 20 H 7-18 mg/dL Creatinine 1.2 H 0.5-1.0 mg/dL Glomerular Filtration Rate Calc 46 >90 mL/min Random Glucose 116 H 70-105 mg/dL Total Calcium 9.0 8.5-10.1 mg/dL Hemoglobin A1c 6.2 H 4.0-6.0 % Estimated Average Glucose (eAG) 131 H 70-126 mg/dL Magnesium Level 2.20 1.80-2.40 mg/dL Total Bilirubin 0.8 0.2-1.0 mg/dL Direct Bilirubin 0.3 0.0-0.3 mg/dL Aspartate Amino Transf (AST/SGOT) 23 10-37 U/L Alanine Aminotransferase (ALT/SGPT) 27 12-78 U/L Alkaline Phosphatase 66 50-136 U/L Total Creatine Kinase 100 21-232 U/L Troponin I High Sensitivity 10 4-50 ng/L C-Reactive Protein, Quantitative 2.20 0.5-3.0 mg/L B-Type Natriuretic Peptide 108 H 0-100 pg/mL Total Protein 7.4 6.0-8.3 g/dL Albumin 4.2 3.5-5.0 g/dL Triglycerides Level 72 30-200 mg/dL Cholesterol Level 100 # <200 mg/dL LDL Cholesterol 31 0-99 mg/dL HDL Cholesterol 62 35-85 mg/dL Procalcitonin < 0.05 L 0.05-0.5 ng/mL Thyroid Stimulating Hormone (TSH) 2.33 0.36-3.74 uIU/mL Coagulation Labs: Test 12/28/24 09:44 Range/Units Prothrombin Time 12.5 H 9.6-11.6 SEC Prothromb Time International Ratio 1.20 H 0.85-1.15 Activated Partial Thromboplast Time 25.1 L 26.3-35.5 SEC Diagnostics / Radiology: [Copy/Paste Echos/Imaging Report here] Impression and Plan: [ Acute heart failure exacerbation, pending 2D echocardiogram to assess for systolic/diastolic function, POA Acute hypoxemic respiratory failure, POA Paroxysmal atrial fibrillation with ventricular bigeminy, POA History of Watchman device placement about five years ago, POA History of prior cardioversions and cardiac ablation for atrial fibrillation, POA Hypertension, POA Hyperlipidemia, POA Obstructive sleep apnea maintained on outpatient CPAP, POA Obesity, POA ] Plan: [#A-fib, paroxysmal s/p Watchman device not on anticoagulation -Outpatient 2d echo 12/27/2024 showed normal LV size for BSA 2.6 cm/m2, LVEF 35- 40%, mild left atrial enlargement. -recent DCCV 11/[address] Barboza -now with frequent PVCs, started amiodarone IV protocol #HFrEF LVEF 35-40% -Trop neg x1 -likely tachycardia induced -lasix, 20 mg IV q8, lisinopril 40 mg qd -CCTA 2022 with 20-30% proximal LAD stenosis, pending repeat study if converts into normal rhythm otherwise will plan for inpatient lexiscan ] ] DENEEN COREAS MD Dec 29, 2024 09:29
[2024-12-29] MEDS ORDERED: furoSEMIDE 20MG VIAL IV SCH (09:30)
[2024-12-29 09:37] LABS: ALBUMIN 4.1 g/dL (3.5-5.0); BILIRUBIN,TOTAL 1.3 mg/dL (0.2-1.0); CREATININE 1.1 mg/dL (0.5-1.0); TOTAL PROTEIN, SERUM 7.4 g/dL (6.0-8.3)
[2024-12-29] MEDS: CYANOCOBALAMIN (VITAMIN B-12) 1,000 MCG TABLET PO SCH (09:55)
[2024-12-29] MEDS: PANTOPrazole 40 MG TAB DR PO SCH (09:55)
[2024-12-29] MEDS: LISINOPRIL 40 MG TABLET PO SCH (09:55)
[2024-12-29] MEDS: ENOXAPARIN SODIUM 40 MG/0.4 ML SYRINGE SQ SCH (09:55)
[2024-12-29] MEDS: ASPIRIN 81MG CHEW TAB PO SCH (09:56)
[2024-12-29] MEDS: AMIOdarone 900MG VIAL 360 MG in DEXTROSE 5%-WATER 200 ML IV ONE (11:00)
--- NOTE | 2024-12-29 11:50 | NUR ---
CALLED MRS. ALONDRA BROWN AND GAVE REPORT. PATIENT WILL BE GOING TO ROOM 222. NOTIFY MRS. CANTU OF PENDING LABS. SHE VERBALIZED UNDERSTANDING.
--- NOTE | 2024-12-29 12:51 | HMCIMG ---
CHEST 1VW HISTORY: Pulmonary vascular congestion COMPARISON: 12/28/2024 FINDINGS: A frontal projection of the chest was obtained. There are bilateral pulmonary infiltrates suggestive of pulmonary vascular congestion with possible superimposed pneumonitis. The heart is enlarged. Degenerative changes are seen. Pacemaker is seen entering from the left. IMPRESSION: 1. Bilateral pulmonary infiltrates are seen suggestive of pulmonary vascular congestion with possible superimposed pneumonitis.
--- NOTE | 2024-12-29 14:35 | EKG ---
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
--- NOTE | 2024-12-29 14:51 | PN ---
[facility] PROGRESS NOTE Date of Service: Dec 29, 2024 Time of Service: 14:48 SUBJECTIVE: [79-year-old female admitted secondary to shortness of breaths. Patient was noted with atrial fibrillation with RVR. Patient also was noted with acute heart failure exacerbation. She continues with oxygen via nasal cannula. Right upper lung noted fine crackles. She is currently being diuresed at this time with Lasix 40 mg b.i.d. IV. Patient is also currently on amiodarone drip per protocol. We will continue to follow recommendations from sports official. ] REVIEW OF SYSTEMS CONSTITUTIONAL: Denies fevers, chills, or night sweats. No unintentional weight loss reported. NEUROLOGICAL: Denies headache, amaurosis fugax, motor weakness, sensory deficit, vertigo/spinning sensation, gait abnormalities, or tremors. ENT: No hearing loss, otalgia, otorrhea, rhinitis, rhinorrhea, hoarseness, or sore throat. CARDIOVASCULAR: Lower extremity swelling, dyspnea on exertion, PND, orthopnea PULMONARY: Denies any shortness of breath, cough, phlegm/sputum, hemoptysis, pleuritic chest pain. SLEEP: Denies morning headaches, daytime somnolence or napping. Denies difficulty falling asleep, staying asleep, waking from sleep. Denies knowledge of snoring. GASTROINTESTINAL: Denies any type of dysphagia to either liquids or solids. Denies nausea, vomiting, pyrosis, early satiety, abdominal pain, diarrhea, constipation, or changes in stool consistency or caliber. Denies coffee-ground emesis, hematemesis, hematochezia, or melanotic stools. GENITOURINARY: Denies frequency, urgency, nocturia, hematuria or incontinence (Storage/Irritative symptoms.) Low urinary stream, straining to void, urinary intermittency or hesitancy, splitting of the voiding stream, terminal dribbling. ENDOCRINOLOGIC: Denies polyuria, polydipsia, polyphagia or heat/cold intolerances. HEMATOLOGIC: Denies thrombophilia/previous clots, or coagulopathy/bleeding disorders. ONCOLOGIC: Denies personal history of malignancy. DERMATOLOGIC: Denies rashes or pruritus. PSYCHIATRIC: Denies any suicidal or homicidal ideation. Denies hallucinations. PHYSICAL EXAM GENERAL APPEARANCE: The patient is awake, alert, and oriented, in no acute cardiopulmonary distress. NEUROLOGICAL: Cranial nerves II-XII grossly intact. Motor is 5/5 in bilateral upper and lower extremities proximal to distal. No sensory deficits. HEENT: Face is symmetric. Pupils are equal and reactive. Extraocular movements are intact. NECK: Supple. No JVD. No thyromegaly. No submental, submandibular, pre- /postauricular, occipital or supraclavicular lymphadenopathy. CHEST: Normal chest expansion. No Telemetry. LUNGS: Absence of any rales, rhonchi or any wheezing. CARDIOVASCULAR: irregular. S1 and S2 normal. No appreciable rubs, murmurs or gallops. ABDOMEN: Soft, nontender, and nondistended. There is no rebound, voluntary guarding, or rigidity. : Deferred. No Mcmillan. EXTREMITIES: 2+ pitting edema of the bilateral lower extremities. No clubbing. Good capillary refill. SKIN: No skin breakdown. Vital Signs (last 8hr) Date Time Temp Pulse Resp B/P (MAP) Pulse Ox O2 Delivery O2 Flow Rate FiO2 12/29/24 12:30 98.4 70 18 126/68 99 Room Air 12/29/24 08:55 98.1 43 20 123/48 96 Room Air 12/29/24 07:39 98.2 74 16 110/42 95 Room Air* 0 21 12/29/24 07:07 N/A Room Air 21 LABS: Laboratory: Test 12/29/24 09:02 12/28/24 11:32 12/28/24 09:44 Range/Units White Blood Count 7.6 4.8-10.8 K/uL Red Blood Count 3.22 L 4.00-5.50 MIL/uL Hemoglobin 10.6 L 12.0-16.0 g/dL Hematocrit 32.4 L 36-48 % Mean Corpuscular Volume 100.6 H 79-99 fL Mean Corpuscular Hemoglobin 32.9 27.0-33.0 pg Mean Corpuscular Hemoglobin Concent 32.7 32.0-36.0 g/dL Red Cell Distribution Width 14.0 11.0-15.5 % Platelet Count 166 130-400 K/uL Mean Platelet Volume 9.9 7.5-10.5 fL Immature Granulocyte % (Auto) 0.3 0-1 % Neutrophils (%) (Auto) 65.7 40.0-77.0 % Lymphocytes (%) (Auto) 24.1 21.0-51.0 % Monocytes (%) (Auto) 6.1 3.0-13.0 % Eosinophils (%) (Auto) 3.3 0.0-8.0 % Basophils (%) (Auto) 0.5 0.0-5.0 % Neutrophils # (Auto) 5.0 1.8-7.7 K/uL Lymphocytes # (Auto) 1.8 1.0-4.8 K/uL Monocytes # (Auto) 0.5 0.1-1.0 K/uL Eosinophils # (Auto) 0.25 0.00-0.70 K/uL Basophils # (Auto) 0.04 0.00-0.20 K/uL Absolute Immature Granulocyte (auto 0.02 0-1 K/uL Nucleated Red Blood Cells 0.0 0.0-0.19 % Sodium Level 139 136-145 mmol/L Potassium Level 4.0 3.5-5.1 mmol/L Chloride Level 103 101-111 mmol/L Carbon Dioxide Level 27 21-32 mmol/L Blood Urea Nitrogen 20 H 7-18 mg/dL Creatinine 1.1 H 0.5-1.0 mg/dL Glomerular Filtration Rate Calc 51 >90 mL/min Random Glucose 176 #H 70-105 mg/dL Total Calcium 9.4 8.5-10.1 mg/dL Magnesium Level 2.00 1.80-2.40 mg/dL Total Bilirubin 1.3 #H 0.2-1.0 mg/dL Aspartate Amino Transf (AST/SGOT) 19 10-37 U/L Alanine Aminotransferase (ALT/SGPT) 26 12-78 U/L Alkaline Phosphatase 67 50-136 U/L Total Protein 7.4 6.0-8.3 g/dL Albumin 4.1 3.5-5.0 g/dL Urine Color COLORLESS YELLOW Urine Appearance CLEAR CLEAR Urine pH 5.5 5.0-8.0 Urine Specific [place] 1.005 1.001-1.031 Urine Protein NEGATIVE NEGATIVE mg/dL Urine Glucose (UA) NEGATIVE NEGATIVE mg/dL Urine Ketones NEGATIVE NEGATIVE mg/dL Urine Occult Blood NEGATIVE NEGATIVE Urine Nitrate NEGATIVE NEGATIVE Urine Bilirubin NEGATIVE NEGATIVE mg/dL Urine Urobilinogen 0.2 0.2-1.0 mg/dL Urine Leukocyte Esterase NEGATIVE NEGATIVE Christina/uL Erythrocyte Sedimentation Rate 18 0-30 MM/HR Prothrombin Time 12.5 H 9.6-11.6 SEC Prothromb Time International Ratio 1.20 H 0.85-1.15 Activated Partial Thromboplast Time 25.1 L 26.3-35.5 SEC Hemoglobin A1c 6.2 H 4.0-6.0 % Estimated Average Glucose (eAG) 131 H 70-126 mg/dL Direct Bilirubin 0.3 0.0-0.3 mg/dL Total Creatine Kinase 100 21-232 U/L Troponin I High Sensitivity 10 4-50 ng/L C-Reactive Protein, Quantitative 2.20 0.5-3.0 mg/L B-Type Natriuretic Peptide 108 H 0-100 pg/mL Triglycerides Level 72 30-200 mg/dL Cholesterol Level 100 # <200 mg/dL LDL Cholesterol 31 0-99 mg/dL HDL Cholesterol 62 35-85 mg/dL Procalcitonin < 0.05 L 0.05-0.5 ng/mL Thyroid Stimulating Hormone (TSH) 2.33 0.36-3.74 uIU/mL Influenza Type A Antigen Negative For Type A NEGATIVE Influenza Type B Antigen Negative For Type B NEGATIVE SARS-CoV-2, RNA, NAAT NEGATIVE SARS CoV-2 NEGATIVE Current Medications Medications (Trade) Dose Ordered Sig/Ruddy Route PRN Reason Start Time Stop Time Status Last Admin Dose Admin Acetaminophen (TYLenol 325MG TAB) 650 mg Q6H PRN PO MILD PAIN (1-3) 12/28/24 14:00 01/27/25 13:59 Amiodarone HCl 540 mg/Dextrose 300 ml @ 16.667 mls/ hr PROTOCOL IV 12/28/24 14:00 12/29/24 11:01 DC 12/28/24 20:50 16.667 MLS/HR Amiodarone HCl 540 mg/Dextrose 300 ml @ 0 mls/hr PROTOCOL IV 12/29/24 11:00 01/28/25 10:59 Aspirin (Aspirin 81mg Chew Tab) 81 mg DAILY PO 12/29/24 09:00 01/28/25 08:59 12/29/24 09:56 81 MG Atorvastatin Calcium (LIPItor 40MG) 80 mg HS PO 12/28/24 21:00 01/27/25 20:59 12/28/24 21:39 80 MG Enoxaparin Sodium (Lovenox) 40 mg DAILY SQ 12/29/24 09:00 01/28/25 08:59 12/29/24 09:55 40 MG Furosemide (LASix 20MG VIAL) 20 mg Q8H IV 12/28/24 14:00 12/29/24 09:26 DC 12/29/24 07:08 20 MG Furosemide (LASix 20MG VIAL) 40 mg BID IV 12/29/24 09:30 12/29/24 09:30 DC Furosemide (LASix 40MG VIAL) 40 mg BID IV 12/29/24 21:00 01/27/25 13:59 Home Med (Home Medication) Cholecalciferol (Vitamin D3) 10 MCG DAILY PO 12/29/24 09:00 01/28/25 08:59 Home Med (Home Medication) Magnesium 250 MG HS PO 12/28/24 21:00 01/27/25 20:59 Home Med (Home Medication) Verapamil HCl (Verapa... HS PO 12/28/24 21:00 01/27/25 20:59 Lisinopril (Prinivil 40mg) 40 mg DAILY PO 12/29/24 09:00 01/28/25 08:59 12/29/24 09:55 40 MG Magnesium Sulfate 50 ml @ 0 mls/hr PROTOCOL IV 12/28/24 14:00 01/27/25 13:59 Ondansetron HCl (zoFRAN 4MG INJ) 4 mg Q6H PRN IVP NAUSEA/VOMITING 12/28/24 14:00 01/27/25 13:59 Pantoprazole Sodium (PROTonix 40MG TAB) 40 mg DAILY PO 12/29/24 09:00 01/28/25 08:59 12/29/24 09:55 40 MG Potassium Chloride 100 ml @ 100 mls/hr AD PRN IV POTASSIUM PROTOCOL 12/28/24 14:00 01/27/25 13:59 Potassium Chloride (K-Dur/Klor-Con 20meq) 20 meq AD PRN PO POTASSIUM PROTOCOL 12/28/24 14:00 01/27/25 13:59 Potassium Chloride (K-Dur/Klor-Con 20meq) 20 meq BID PO 12/29/24 21:00 01/28/25 20:59 Potassium Chloride (KCl 10% Elixir 20meq/15ml) 20 meq AD PRN PO POTASSIUM PROTOCOL 12/28/24 14:00 01/27/25 13:59 Vitamin B Complex (Vitamin B-12) 1,000 mcg DAILY PO 12/29/24 09:00 01/28/25 08:59 12/29/24 09:55 1,000 MCG DIAGNOSTICS / RADIOLOGY: [ ] ASSESSMENT: Acute heart failure exacerbation, pending 2D echocardiogram to assess for systolic/diastolic function, POA Acute hypoxemic respiratory failure, POA Paroxysmal atrial fibrillation with ventricular bigeminy, POA History of Watchman device placement about five years ago, POA History of prior cardioversions and cardiac ablation for atrial fibrillation, POA Hypertension, POA Hyperlipidemia, POA Obstructive sleep apnea maintained on outpatient CPAP, POA Obesity, POA PLAN: Continue with telemetry monitoring Continue with supplemental O2 therapy to maintain oxygen saturation greater than 92% Continue on IV amiodarone protocol for management of atrial fibrillation We will maintain K greater than four and magnesium greater than two We will follow up 2D echo Appreciate recommendations from sports official, Dr. Alexa Omer Patient is on IV diuretics with Lasix 40 mg IV b.i.d. Continue with strict I&O and daily weights Continue with rest of the home medications Patient is currently not only on aspirin as outpatient, she states that she stopped Eliquis about two weeks ago, patient does have history of Watchman device placement, confirmed with Cardiology, we will hold off on anticoagulation for now She may benefit from EP consultation this admission DVT prophylaxis with Lovenox 40 mg subcutaneous daily GI prophylaxis with Protonix Patient to resume CPAP tonight for management of obstructive sleep apnea All labs will be repeated in the morning Patient was seen and examined in the emergency department, above plan was formulated ATTESTATION BY PHYSICIAN I have seen and examined the patient. I reviewed the documentation, medical decision making, and treatment plan as noted by the mid-level provider above. I agree with the findings and plan of care. Carmencita Mays MD, [facility] Dec 29, 2024 14:51
[2024-12-29] MEDS: AMIOdarone 900MG VIAL 540 MG in DEXTROSE 5%-WATER 300 ML IV SCH (18:16)
--- NOTE | 2024-12-29 20:12 | NUR ---
PER TELE PATIENT RUNNING JUNCTIONAL WITH BIGEMI PVCS 42 B/P 125/42 DR. WHITESIDE NOTIFIED ORDERS: STOP AMIO DRIP AND LET LEGAL FILE CLERK DECIDE IN THE MORNING ON NEXT STEP. AMIO DRIP STOPPED BY NIGHT NURSE.
[2024-12-29] MEDS: furoSEMIDE 40MG VIAL IV SCH (20:49)
[2024-12-29] MEDS: PoTASSium chloRIDE 20MEQ ER 20 MEQ ERTAB PO SCH (20:51)
[2024-12-30] VITALS (9 sets, daily range): BP systolic 113–131; BP diastolic 42–69; PULSE 43–85; RESP 18–20; TEMP 97.5–98.7; O2SAT 94–95
[2024-12-30 03:46] LABS: HEMATOCRIT 32.4 % (36-48); MEAN CORPUSCULAR HEMOGLOBIN 33.2 pg (27.0-33.0); MEAN CORPUSCULAR HGB CONC 33.3 g/dL (32.0-36.0); MEAN CORPUSCULAR VOLUME 99.7 fL (79-99); RED BLOOD CELL COUNT(AUTO) 3.25 MIL/uL (4.00-5.50); RED CELL DISTRIBUTION WIDTH 13.9 % (11.0-15.5); WHITE BLOOD COUNT (AUTO) 9.8 K/uL (4.8-10.8)
[2024-12-30 03:56] LABS: CREATININE 1.3 mg/dL (0.5-1.0)
--- NOTE | 2024-12-30 07:54 | PN ---
[facility] CARDIOLOGY PROGRESS NOTE Date Patient Seen: Dec 30, 2024 Time of Visit: 07:52 Interval History: [ 1650 urine output, CXR similar congestion as yesterday, will increase lasix] Physical Examination: GENERAL: [No acute distress.] HEAD: [Normal with no signs of head trauma.] EYES: [PERRLA, EOMI, conjunctiva and sclera normal.] ENT: [Hearing grossly intact, normal oropharynx.] NECK: [Supple without JVD. There is no tenderness, lymphadenopathy, or masses. No thyromegaly. Normal carotid upstrokes without bruits.] LUNGS: [rales b/l.] HEART: [irregular rate and rhythm. Normal S1 and S2 without mumurs, gallop or rub.] VASC: [Peripheral pulses +2 bilaterally.] ABD: [Bowel sounds normal, soft, nontender, no masses, no organomegaly. No audible bruits.] : [Not examined] LYMPH: [No lymphadenopathy noted.] EXT: [3+ edema.] SKIN: [No rashes or lesions noted.] NEURO: [Awake, alert, and oriented x3. No focal sensory or strength deficits noted.] Laboratory: [ ] Hematology Labs: Test 12/30/24 03:19 12/29/24 09:02 12/28/24 09:44 Range/Units White Blood Count 9.8 # 4.8-10.8 K/uL Red Blood Count 3.25 L 4.00-5.50 MIL/uL Hemoglobin 10.8 L 12.0-16.0 g/dL Hematocrit 32.4 L 36-48 % Mean Corpuscular Volume 99.7 H 79-99 fL Mean Corpuscular Hemoglobin 33.2 H 27.0-33.0 pg Mean Corpuscular Hemoglobin Concent 33.3 32.0-36.0 g/dL Red Cell Distribution Width 13.9 11.0-15.5 % Platelet Count 180 130-400 K/uL Mean Platelet Volume 10.3 7.5-10.5 fL Nucleated Red Blood Cells 0.0 0.0-0.19 % Immature Granulocyte % (Auto) 0.3 0-1 % Neutrophils (%) (Auto) 65.7 40.0-77.0 % Lymphocytes (%) (Auto) 24.1 21.0-51.0 % Monocytes (%) (Auto) 6.1 3.0-13.0 % Eosinophils (%) (Auto) 3.3 0.0-8.0 % Basophils (%) (Auto) 0.5 0.0-5.0 % Neutrophils # (Auto) 5.0 1.8-7.7 K/uL Lymphocytes # (Auto) 1.8 1.0-4.8 K/uL Monocytes # (Auto) 0.5 0.1-1.0 K/uL Eosinophils # (Auto) 0.25 0.00-0.70 K/uL Basophils # (Auto) 0.04 0.00-0.20 K/uL Absolute Immature Granulocyte (auto 0.02 0-1 K/uL Erythrocyte Sedimentation Rate 18 0-30 MM/HR Chemistry Labs: Test 12/30/24 03:19 12/29/24 09:02 12/28/24 09:44 Range/Units Sodium Level 141 136-145 mmol/L Potassium Level 4.0 3.5-5.1 mmol/L Chloride Level 104 101-111 mmol/L Carbon Dioxide Level 28 21-32 mmol/L Blood Urea Nitrogen 21 H 7-18 mg/dL Creatinine 1.3 H 0.5-1.0 mg/dL Glomerular Filtration Rate Calc 42 >90 mL/min Random Glucose 115 H 70-105 mg/dL Total Calcium 9.1 8.5-10.1 mg/dL B-Type Natriuretic Peptide 71 0-100 pg/mL Magnesium Level 2.00 1.80-2.40 mg/dL Total Bilirubin 1.3 #H 0.2-1.0 mg/dL Aspartate Amino Transf (AST/SGOT) 19 10-37 U/L Alanine Aminotransferase (ALT/SGPT) 26 12-78 U/L Alkaline Phosphatase 67 50-136 U/L Total Protein 7.4 6.0-8.3 g/dL Albumin 4.1 3.5-5.0 g/dL Hemoglobin A1c 6.2 H 4.0-6.0 % Estimated Average Glucose (eAG) 131 H 70-126 mg/dL Direct Bilirubin 0.3 0.0-0.3 mg/dL Total Creatine Kinase 100 21-232 U/L Troponin I High Sensitivity 10 4-50 ng/L C-Reactive Protein, Quantitative 2.20 0.5-3.0 mg/L Triglycerides Level 72 30-200 mg/dL Cholesterol Level 100 # <200 mg/dL LDL Cholesterol 31 0-99 mg/dL HDL Cholesterol 62 35-85 mg/dL Procalcitonin < 0.05 L 0.05-0.5 ng/mL Thyroid Stimulating Hormone (TSH) 2.33 0.36-3.74 uIU/mL Coagulation Labs: Test 12/28/24 09:44 Range/Units Prothrombin Time 12.5 H 9.6-11.6 SEC Prothromb Time International Ratio 1.20 H 0.85-1.15 Activated Partial Thromboplast Time 25.1 L 26.3-35.5 SEC Diagnostics / Radiology: [Copy/Paste Echos/Imaging Report here] Impression and Plan: [ Acute heart failure exacerbation, pending 2D echocardiogram to assess for systolic/diastolic function, POA Acute hypoxemic respiratory failure, POA Paroxysmal atrial fibrillation with ventricular bigeminy, POA History of Watchman device placement about five years ago, POA History of prior cardioversions and cardiac ablation for atrial fibrillation, POA Hypertension, POA Hyperlipidemia, POA Obstructive sleep apnea maintained on outpatient CPAP, POA Obesity, POA ] Plan: [#A-fib, paroxysmal s/p Watchman device not on anticoagulation -Outpatient 2d echo 12/27/2024 showed normal LV size for BSA 2.6 cm/m2, LVEF 35- 40%, mild left atrial enlargement. -recent DCCV 11/[address] Barboza -now with frequent PVCs, started amiodarone IV protocol -now intermittent a-pacing at 68 bpm with PVCs, will start metoprolol tartrate 25 mg q8 and hold lisnopril for now #HFrEF LVEF 35-40% -Trop neg x1 -likely tachycardia induced -lasix 40 mg IV q8 -CCTA 2022 with 20-30% proximal LAD stenosis, pending repeat study if converts into normal rhythm otherwise will plan for inpatient lexiscan ] ] DENEEN COREAS MD Dec 30, 2024 07:54
[2024-12-30] MEDS ORDERED: metoPROLOL tartRATE 50 MG TAB PO SCH (08:00)
[2024-12-30] MEDS: metoPROLOL tartRATE 25 MG TAB PO SCH (09:00)
--- NOTE | 2024-12-30 09:56 | HMCIMG ---
Exam Type: CHEST 1VW Clinical Information: chf Comparison: None Findings: Pulmonary pattern is as before. No worrisome interval changes have taken place. Impression: Stable exam.
[2024-12-30] MEDS: AMIOdarone 200 MG TABLET PO SCH (10:00)
[2024-12-30] MEDS: furoSEMIDE 40MG VIAL IV SCH (10:05)
--- NOTE | 2024-12-30 17:11 | PN ---
[facility] PROGRESS NOTE Date of Service: Dec 30, 2024 Time of Service: 17:08 SUBJECTIVE: [79-year-old female admitted secondary to shortness of breaths. Patient was noted with atrial fibrillation with RVR. Patient also was noted with acute heart failure exacerbation. She continues with oxygen via nasal cannula. Right upper lung noted fine crackles. She is currently being diuresed at this time with Lasix 40 mg b.i.d. IV. Patient is also currently on amiodarone drip per protocol. We will continue to follow recommendations from manager printing. ] 12/30/24 79-year-old female admitted secondary to shortness of breath. Patient was noted with atrial fibrillation with RVR. Patient also was noted with acute heart failure exacerbation. Currently improving with further medication adjustments by cardiology/Patient and son prefer to go home at discharge/CT angio planned for Thursday REVIEW OF SYSTEMS CONSTITUTIONAL: Denies fevers, chills, or night sweats. No unintentional weight loss reported. NEUROLOGICAL: Denies headache, amaurosis fugax, motor weakness, sensory deficit, vertigo/spinning sensation, gait abnormalities, or tremors. ENT: No hearing loss, otalgia, otorrhea, rhinitis, rhinorrhea, hoarseness, or sore throat. CARDIOVASCULAR: Lower extremity swelling, dyspnea on exertion, PND, orthopnea PULMONARY: Denies any shortness of breath, cough, phlegm/sputum, hemoptysis, pleuritic chest pain. SLEEP: Denies morning headaches, daytime somnolence or napping. Denies difficulty falling asleep, staying asleep, waking from sleep. Denies knowledge of snoring. GASTROINTESTINAL: Denies any type of dysphagia to either liquids or solids. Denies nausea, vomiting, pyrosis, early satiety, abdominal pain, diarrhea, constipation, or changes in stool consistency or caliber. Denies coffee-ground emesis, hematemesis, hematochezia, or melanotic stools. GENITOURINARY: Denies frequency, urgency, nocturia, hematuria or incontinence (Storage/Irritative symptoms.) Low urinary stream, straining to void, urinary intermittency or hesitancy, splitting of the voiding stream, terminal dribbling. ENDOCRINOLOGIC: Denies polyuria, polydipsia, polyphagia or heat/cold intolerances. HEMATOLOGIC: Denies thrombophilia/previous clots, or coagulopathy/bleeding disorders. ONCOLOGIC: Denies personal history of malignancy. DERMATOLOGIC: Denies rashes or pruritus. PSYCHIATRIC: Denies any suicidal or homicidal ideation. Denies hallucinations. PHYSICAL EXAM GENERAL APPEARANCE: The patient is awake, alert, and oriented, in no acute cardiopulmonary distress. NEUROLOGICAL: Cranial nerves II-XII grossly intact. Motor is 5/5 in bilateral upper and lower extremities proximal to distal. No sensory deficits. HEENT: Face is symmetric. Pupils are equal and reactive. Extraocular movements are intact. NECK: Supple. No JVD. No thyromegaly. No submental, submandibular, pre- /postauricular, occipital or supraclavicular lymphadenopathy. CHEST: Normal chest expansion. No Telemetry. LUNGS: Absence of any rales, rhonchi or any wheezing. CARDIOVASCULAR: irregular. S1 and S2 normal. No appreciable rubs, murmurs or gallops. ABDOMEN: Soft, nontender, and nondistended. There is no rebound, voluntary guarding, or rigidity. : Deferred. No Mcmillan. EXTREMITIES: 2+ pitting edema of the bilateral lower extremities. No clubbing. Good capillary refill. SKIN: No skin breakdown. Vital Signs (last 8hr) Date Time Temp Pulse Resp B/P (MAP) Pulse Ox O2 Delivery O2 Flow Rate FiO2 12/30/24 16:48 95 Room Air* 0 21 12/30/24 16:00 98.6 55 20 125/68 96 Room Air 12/30/24 12:00 98.8 85 20 131/66 97 Room Air LABS: Laboratory: Test 12/30/24 03:19 12/29/24 09:02 Range/Units White Blood Count 9.8 # 4.8-10.8 K/uL Red Blood Count 3.25 L 4.00-5.50 MIL/uL Hemoglobin 10.8 L 12.0-16.0 g/dL Hematocrit 32.4 L 36-48 % Mean Corpuscular Volume 99.7 H 79-99 fL Mean Corpuscular Hemoglobin 33.2 H 27.0-33.0 pg Mean Corpuscular Hemoglobin Concent 33.3 32.0-36.0 g/dL Red Cell Distribution Width 13.9 11.0-15.5 % Platelet Count 180 130-400 K/uL Mean Platelet Volume 10.3 7.5-10.5 fL Nucleated Red Blood Cells 0.0 0.0-0.19 % Sodium Level 141 136-145 mmol/L Potassium Level 4.0 3.5-5.1 mmol/L Chloride Level 104 101-111 mmol/L Carbon Dioxide Level 28 21-32 mmol/L Blood Urea Nitrogen 21 H 7-18 mg/dL Creatinine 1.3 H 0.5-1.0 mg/dL Glomerular Filtration Rate Calc 42 >90 mL/min Random Glucose 115 H 70-105 mg/dL Total Calcium 9.1 8.5-10.1 mg/dL B-Type Natriuretic Peptide 71 0-100 pg/mL Immature Granulocyte % (Auto) 0.3 0-1 % Neutrophils (%) (Auto) 65.7 40.0-77.0 % Lymphocytes (%) (Auto) 24.1 21.0-51.0 % Monocytes (%) (Auto) 6.1 3.0-13.0 % Eosinophils (%) (Auto) 3.3 0.0-8.0 % Basophils (%) (Auto) 0.5 0.0-5.0 % Neutrophils # (Auto) 5.0 1.8-7.7 K/uL Lymphocytes # (Auto) 1.8 1.0-4.8 K/uL Monocytes # (Auto) 0.5 0.1-1.0 K/uL Eosinophils # (Auto) 0.25 0.00-0.70 K/uL Basophils # (Auto) 0.04 0.00-0.20 K/uL Absolute Immature Granulocyte (auto 0.02 0-1 K/uL Magnesium Level 2.00 1.80-2.40 mg/dL Total Bilirubin 1.3 #H 0.2-1.0 mg/dL Aspartate Amino Transf (AST/SGOT) 19 10-37 U/L Alanine Aminotransferase (ALT/SGPT) 26 12-78 U/L Alkaline Phosphatase 67 50-136 U/L Total Protein 7.4 6.0-8.3 g/dL Albumin 4.1 3.5-5.0 g/dL Current Medications Medications (Trade) Dose Ordered Sig/Ruddy Route PRN Reason Start Time Stop Time Status Last Admin Dose Admin Acetaminophen (TYLenol 325MG TAB) 650 mg Q6H PRN PO MILD PAIN (1-3) 12/28/24 14:00 01/27/25 13:59 Amiodarone HCl (pacERONE 200MG) 200 mg BID PO 12/30/24 09:00 01/29/25 08:59 12/30/24 10:00 200 MG Amiodarone HCl 540 mg/Dextrose 300 ml @ 16.667 mls/ hr PROTOCOL IV 12/28/24 14:00 12/29/24 11:01 DC 12/28/24 20:50 16.667 MLS/HR Amiodarone HCl 540 mg/Dextrose 300 ml @ 0 mls/hr PROTOCOL IV 12/29/24 11:00 01/28/25 10:59 12/29/24 18:16 16.6 MLS/HR Aspirin (Aspirin 81mg Chew Tab) 81 mg DAILY PO 12/29/24 09:00 01/28/25 08:59 12/30/24 10:00 81 MG Atorvastatin Calcium (LIPItor 40MG) 80 mg HS PO 12/28/24 21:00 01/27/25 20:59 12/29/24 20:51 80 MG Enoxaparin Sodium (Lovenox) 40 mg DAILY SQ 12/29/24 09:00 01/28/25 08:59 12/30/24 10:02 40 MG Furosemide (LASix 20MG VIAL) 20 mg Q8H IV 12/28/24 14:00 12/29/24 09:26 DC 12/29/24 07:08 20 MG Furosemide (LASix 20MG VIAL) 40 mg BID IV 12/29/24 09:30 12/29/24 09:30 DC Furosemide (LASix 40MG VIAL) 40 mg BID IV 12/29/24 21:00 12/30/24 07:50 DC 12/29/24 20:49 40 MG Furosemide (LASix 40MG VIAL) 40 mg Q8H5 IV 12/30/24 08:00 01/27/25 13:59 12/30/24 14:44 40 MG Home Med (Home Medication) Cholecalciferol (Vitamin D3) 10 MCG DAILY PO 12/29/24 09:00 01/28/25 08:59 Home Med (Home Medication) Magnesium 250 MG HS PO 12/28/24 21:00 01/27/25 20:59 Home Med (Home Medication) Verapamil HCl (Verapa... HS PO 12/28/24 21:00 01/27/25 20:59 Lisinopril (Prinivil 40mg) 40 mg DAILY PO 12/29/24 09:00 12/30/24 07:52 DC 12/29/24 09:55 40 MG Magnesium Sulfate 50 ml @ 0 mls/hr PROTOCOL IV 12/28/24 14:00 01/27/25 13:59 Metoprolol Tartrate (loprESSOR) 25 mg TID PO 12/30/24 08:00 01/29/25 07:59 12/30/24 14:44 25 MG Metoprolol Tartrate (loprESSOR) 50 mg TID PO 12/30/24 08:00 12/30/24 07:53 DC Ondansetron HCl (zoFRAN 4MG INJ) 4 mg Q6H PRN IVP NAUSEA/VOMITING 12/28/24 14:00 01/27/25 13:59 Pantoprazole Sodium (PROTonix 40MG TAB) 40 mg DAILY PO 12/29/24 09:00 01/28/25 08:59 12/30/24 10:00 40 MG Potassium Chloride 100 ml @ 100 mls/hr AD PRN IV POTASSIUM PROTOCOL 12/28/24 14:00 01/27/25 13:59 Potassium Chloride (K-Dur/Klor-Con 20meq) 20 meq AD PRN PO POTASSIUM PROTOCOL 12/28/24 14:00 01/27/25 13:59 Potassium Chloride (K-Dur/Klor-Con 20meq) 20 meq BID PO 12/29/24 21:00 01/28/25 20:59 12/30/24 10:00 20 MEQ Potassium Chloride (KCl 10% Elixir 20meq/15ml) 20 meq AD PRN PO POTASSIUM PROTOCOL 12/28/24 14:00 01/27/25 13:59 Vitamin B Complex (Vitamin B-12) 1,000 mcg DAILY PO 12/29/24 09:00 01/28/25 08:59 12/30/24 10:00 1,000 MCG DIAGNOSTICS / RADIOLOGY: [ ] ASSESSMENT: Acute heart failure exacerbation, pending 2D echocardiogram to assess for systolic/diastolic function, POA Acute hypoxemic respiratory failure, POA Paroxysmal atrial fibrillation with ventricular bigeminy, POA History of Watchman device placement about five years ago, POA History of prior cardioversions and cardiac ablation for atrial fibrillation, POA Hypertension, POA Hyperlipidemia, POA Obstructive sleep apnea maintained on outpatient CPAP, POA Obesity, POA PLAN: Patient will be admitted to cardiac telemetry floor Continue with supplemental O2 therapy to maintain oxygen saturation greater than 92% Patient will be started on IV amiodarone protocol for management of atrial fibrillation IV Lasix 20 mg q8h for IV diuresis We will maintain K greater than four and magnesium greater than two We will keep patient on telemetry for the next 24-48 hours to assess PVC burden We will follow up results of 2D echocardiogram to assess LVEF, further workup based on results of 2D echocardiogram if cardiomyopathy is confirmed Continue with rest of the home medications Patient is currently not only on aspirin as outpatient, she states that she stopped Eliquis about two weeks ago, patient does have history of Watchman device placement, confirmed with Cardiology, we will hold off on anticoagulation for now She may benefit from EP consultation this admission DVT prophylaxis with Lovenox 40 mg subcutaneous daily GI prophylaxis with Protonix Patient to resume CPAP tonight for management of obstructive sleep apnea All labs will be repeated in the morning Date of service: 12/28/2024 Michele Diaz MD Advanced Care Planning: Which of the following were discussed: Hospice care: Yes __ No _X_ Therapeutic options: Yes _X_ No __ Advance directives: Yes X__ No __ Other discussions: Discussed with who?: Patient Voluntary nature of this service was explained to the patient? Yes _x_ No __ Amount of time spent: 20 minutes MAXINE ROSS MD Dec 30, 2024 17:11
[2024-12-31] VITALS (13 sets, daily range): BP systolic 114–143; BP diastolic 45–75; PULSE 40–47; RESP 18–21; TEMP 97.5–98.1; O2SAT 94–98
--- NOTE | 2024-12-31 14:45 | PN ---
[facility] PROGRESS NOTE Date of Service: Dec 31, 2024 Time of Service: 14:40 SUBJECTIVE: [79-year-old female admitted secondary to shortness of breaths. Patient was noted with atrial fibrillation with RVR. Patient also was noted with acute heart failure exacerbation. She continues with oxygen via nasal cannula. Right upper lung noted fine crackles. She is currently being diuresed at this time with Lasix 40 mg b.i.d. IV. Patient is also currently on amiodarone drip per protocol. We will continue to follow recommendations from manager managed backup services. ] 12/30/24 79-year-old female admitted secondary to shortness of breath. Patient was noted with atrial fibrillation with RVR. Patient also was noted with acute heart failure exacerbation. Currently improving with further medication adjustments by cardiology/Patient and son prefer to go home at discharge/CT angio planned for Thursday12/31/24 Patient followed up today, she was seen by cardio today and interrogation of pacemaker recommended. Medications have been adjusted, she will be on BB metropolol 37.5 mg TID, amiodarone 200 mg bid, furosemide 20 mg bid REVIEW OF SYSTEMS CONSTITUTIONAL: Denies fevers, chills, or night sweats. No unintentional weight loss reported. NEUROLOGICAL: Denies headache, amaurosis fugax, motor weakness, sensory deficit, vertigo/spinning sensation, gait abnormalities, or tremors. ENT: No hearing loss, otalgia, otorrhea, rhinitis, rhinorrhea, hoarseness, or sore throat. CARDIOVASCULAR: Lower extremity swelling, dyspnea on exertion, PND, orthopnea PULMONARY: Denies any shortness of breath, cough, phlegm/sputum, hemoptysis, pleuritic chest pain. SLEEP: Denies morning headaches, daytime somnolence or napping. Denies difficulty falling asleep, staying asleep, waking from sleep. Denies knowledge of snoring. GASTROINTESTINAL: Denies any type of dysphagia to either liquids or solids. Denies nausea, vomiting, pyrosis, early satiety, abdominal pain, diarrhea, constipation, or changes in stool consistency or caliber. Denies coffee-ground emesis, hematemesis, hematochezia, or melanotic stools. GENITOURINARY: Denies frequency, urgency, nocturia, hematuria or incontinence (Storage/Irritative symptoms.) Low urinary stream, straining to void, urinary intermittency or hesitancy, splitting of the voiding stream, terminal dribbling. ENDOCRINOLOGIC: Denies polyuria, polydipsia, polyphagia or heat/cold intolerances. HEMATOLOGIC: Denies thrombophilia/previous clots, or coagulopathy/bleeding disorders. ONCOLOGIC: Denies personal history of malignancy. DERMATOLOGIC: Denies rashes or pruritus. PSYCHIATRIC: Denies any suicidal or homicidal ideation. Denies hallucinations. PHYSICAL EXAM GENERAL APPEARANCE: The patient is awake, alert, and oriented, in no acute cardiopulmonary distress. NEUROLOGICAL: Cranial nerves II-XII grossly intact. Motor is 5/5 in bilateral upper and lower extremities proximal to distal. No sensory deficits. HEENT: Face is symmetric. Pupils are equal and reactive. Extraocular movements are intact. NECK: Supple. No JVD. No thyromegaly. No submental, submandibular, pre- /postauricular, occipital or supraclavicular lymphadenopathy. CHEST: Normal chest expansion. No Telemetry. LUNGS: Absence of any rales, rhonchi or any wheezing. CARDIOVASCULAR: irregular. S1 and S2 normal. No appreciable rubs, murmurs or gallops. ABDOMEN: Soft, nontender, and nondistended. There is no rebound, voluntary guarding, or rigidity. : Deferred. No Mcmillan. EXTREMITIES: 2+ pitting edema of the bilateral lower extremities. No clubbing. Good capillary refill. SKIN: No skin breakdown. Vital Signs (last 8hr) Date Time Temp Pulse Resp B/P (MAP) Pulse Ox O2 Delivery O2 Flow Rate FiO2 12/31/24 11:58 97.5 45 18 114/57 95 12/31/24 11:16 94 Room Air* 0 21 12/31/24 10:35 41 18 N/A Room Air 21 12/31/24 08:20 97.9 40 18 130/75 96 LABS: Laboratory: Test 12/30/24 03:19 Range/Units White Blood Count 9.8 # 4.8-10.8 K/uL Red Blood Count 3.25 L 4.00-5.50 MIL/uL Hemoglobin 10.8 L 12.0-16.0 g/dL Hematocrit 32.4 L 36-48 % Mean Corpuscular Volume 99.7 H 79-99 fL Mean Corpuscular Hemoglobin 33.2 H 27.0-33.0 pg Mean Corpuscular Hemoglobin Concent 33.3 32.0-36.0 g/dL Red Cell Distribution Width 13.9 11.0-15.5 % Platelet Count 180 130-400 K/uL Mean Platelet Volume 10.3 7.5-10.5 fL Nucleated Red Blood Cells 0.0 0.0-0.19 % Sodium Level 141 136-145 mmol/L Potassium Level 4.0 3.5-5.1 mmol/L Chloride Level 104 101-111 mmol/L Carbon Dioxide Level 28 21-32 mmol/L Blood Urea Nitrogen 21 H 7-18 mg/dL Creatinine 1.3 H 0.5-1.0 mg/dL Glomerular Filtration Rate Calc 42 >90 mL/min Random Glucose 115 H 70-105 mg/dL Total Calcium 9.1 8.5-10.1 mg/dL B-Type Natriuretic Peptide 71 0-100 pg/mL Current Medications Medications (Trade) Dose Ordered Sig/Ruddy Route PRN Reason Start Time Stop Time Status Last Admin Dose Admin Acetaminophen (TYLenol 325MG TAB) 650 mg Q6H PRN PO MILD PAIN (1-3) 12/28/24 14:00 01/27/25 13:59 Amiodarone HCl (pacERONE 200MG) 200 mg BID PO 12/30/24 09:00 01/29/25 08:59 12/31/24 09:07 200 MG Amiodarone HCl 540 mg/Dextrose 300 ml @ 16.667 mls/ hr PROTOCOL IV 12/28/24 14:00 12/29/24 11:01 DC 12/28/24 20:50 16.667 MLS/HR Amiodarone HCl 540 mg/Dextrose 300 ml @ 0 mls/hr PROTOCOL IV 12/29/24 11:00 01/28/25 10:59 12/29/24 18:16 16.6 MLS/HR Aspirin (Aspirin 81mg Chew Tab) 81 mg DAILY PO 12/29/24 09:00 01/28/25 08:59 12/31/24 09:07 81 MG Atorvastatin Calcium (LIPItor 40MG) 80 mg HS PO 12/28/24 21:00 01/27/25 20:59 12/30/24 20:46 80 MG Enoxaparin Sodium (Lovenox) 40 mg DAILY SQ 12/29/24 09:00 01/28/25 08:59 12/31/24 09:06 40 MG Furosemide (LASix 20MG VIAL) 20 mg Q8H IV 12/28/24 14:00 12/29/24 09:26 DC 12/29/24 07:08 20 MG Furosemide (LASix 20MG VIAL) 40 mg BID IV 12/29/24 09:30 12/29/24 09:30 DC Furosemide (LASix 40MG TAB) 40 mg BID@09,17 PO 12/31/24 17:00 01/30/25 16:59 Furosemide (LASix 40MG VIAL) 40 mg BID IV 12/29/24 21:00 12/30/24 07:50 DC 12/29/24 20:49 40 MG Furosemide (LASix 40MG VIAL) 40 mg Q8H5 IV 12/30/24 08:00 12/31/24 14:32 DC 12/31/24 12:32 40 MG Home Med (Home Medication) Cholecalciferol (Vitamin D3) 10 MCG DAILY PO 12/29/24 09:00 01/28/25 08:59 Home Med (Home Medication) Magnesium 250 MG HS PO 12/28/24 21:00 01/27/25 20:59 Home Med (Home Medication) Verapamil HCl (Verapa... HS PO 12/28/24 21:00 12/31/24 14:32 DC Lisinopril (Prinivil 40mg) 40 mg DAILY PO 12/29/24 09:00 12/30/24 07:52 DC 12/29/24 09:55 40 MG Magnesium Sulfate 50 ml @ 0 mls/hr PROTOCOL IV 12/28/24 14:00 01/27/25 13:59 Metoprolol Tartrate (loprESSOR) 25 mg TID PO 12/30/24 08:00 12/31/24 14:32 DC 12/31/24 09:07 25 MG Metoprolol Tartrate (loprESSOR) 37.5 mg TID PO 12/31/24 21:00 01/30/25 20:59 Metoprolol Tartrate (loprESSOR) 50 mg TID PO 12/30/24 08:00 12/30/24 07:53 DC Ondansetron HCl (zoFRAN 4MG INJ) 4 mg Q6H PRN IVP NAUSEA/VOMITING 12/28/24 14:00 01/27/25 13:59 Pantoprazole Sodium (PROTonix 40MG TAB) 40 mg DAILY PO 12/29/24 09:00 01/28/25 08:59 12/31/24 09:07 40 MG Potassium Chloride 100 ml @ 100 mls/hr AD PRN IV POTASSIUM PROTOCOL 12/28/24 14:00 01/27/25 13:59 Potassium Chloride (K-Dur/Klor-Con 20meq) 20 meq AD PRN PO POTASSIUM PROTOCOL 12/28/24 14:00 01/27/25 13:59 Potassium Chloride (K-Dur/Klor-Con 20meq) 20 meq BID PO 12/29/24 21:00 01/28/25 20:59 12/31/24 09:06 20 MEQ Potassium Chloride (KCl 10% Elixir 20meq/15ml) 20 meq AD PRN PO POTASSIUM PROTOCOL 12/28/24 14:00 01/27/25 13:59 Vitamin B Complex (Vitamin B-12) 1,000 mcg DAILY PO 12/29/24 09:00 01/28/25 08:59 12/31/24 09:07 1,000 MCG DIAGNOSTICS / RADIOLOGY: [ ] ASSESSMENT: Acute heart failure exacerbation, pending 2D echocardiogram to assess for sy stolic/diastolic function, POA Acute hypoxemic respiratory failure, POA Paroxysmal atrial fibrillation with ventricular bigeminy, POA History of Watchman device placement about five years ago, POA History of prior cardioversions and cardiac ablation for atrial fibrillation, POA Hypertension, POA Hyperlipidemia, POA Obstructive sleep apnea maintained on outpatient CPAP, POA Obesity, POA PLAN: C/w cardiac telemetry floor Continue with supplemental O2 therapy to maintain oxygen saturation greater than 92% Continue with Amiodarone 200 mg po BID, Lopressor 37.5 mg TID, we appreciate rec's from cardio -Pacemaker interrogation, CTA on 01/02/25 IV Lasix 20 mg q8h for IV diuresis We will maintain K greater than four and magnesium greater than two We will keep patient on telemetry for the next 24-48 hours to assess PVC burden We will follow up results of 2D echocardiogram to assess LVEF, further workup based on results of 2D echocardiogram if cardiomyopathy is confirmed Continue with rest of the home medications Interrogate her Pacemaker DVT prophylaxis with Lovenox 40 mg subcutaneous daily GI prophylaxis with Protonix Patient to resume CPAP tonight for management of obstructive sleep apnea All labs will be repeated in the morning ATTESTATION BY PHYSICIAN I have seen and examined the patient. I reviewed the documentation, medical de cision making, and treatment plan as noted by the mid-level provider above. I agree with the findings and plan of care. Carmencita Mays MD, [facility] Dec 31, 2024 14:45
--- NOTE | 2024-12-31 15:33 | HMCIMG ---
INDICATION: PPM assessment TECHNIQUE: CHEST 2VWS COMPARISON: 12/30/2024 FINDINGS AND IMPRESSION: Prominent bilateral interstitial markings which may represent bronchitis or vascular congestion in the proper clinical setting. Cardiomegaly is seen with left-sided pacemaker. Mild degenerative changes of the spine. The visualized upper abdomen appears unremarkable.
[2024-12-31] MEDS: furoSEMIDE 40 MG TABLET PO SCH (17:25)
--- NOTE | 2024-12-31 17:55 | PN ---
Cardiology Progress Note Date of Service: 12/31/2024 Attending Print Shop Chief Clerk: Dr. Brett Kent Primary Print Shop Chief Clerk: Dr. Alexa Omer Reason for Consult: Paroxysmal atrial fibrillation with RVR Problem List: -Paroxysmal atrial fibrillation with RVR s/p Watchman device and previous DCCVs and ablations -Frequent PVCs -HFrEF (LVEF: 35-40% by echo done 12/27/2024) -SSS s/p DC PPM ([employer]) implantation done on 10/12/2024 -Nonobstructive CAD (20-30% stenosis in the proximal LAD) identified on CCTA done on 10/31/2022 -Hypochromic anemia -YENNY/OHS -Obesity Subjective: This is a 79-year-old female who was seen and evaluated at the bedside today. The patient denies any active complaints including chest pain, chest pressure, palpitations, or shortness for breath. As per the nurse, there were no overnight events. Vitals/Labs Vital Signs Date Time Temp Pulse Resp B/P (MAP) Pulse Ox O2 Delivery O2 Flow Rate FiO2 12/31/24 16:43 97.9 43 18 120/53 97 12/31/24 11:16 Room Air* 0 21 General: Alert and oriented x 3. NAD. Chronically ill appearing. HEENT: NC/AT. Oral mucosa is moist. Neck: No masses or JVD. Lungs: NRD. SCM. Bilateral air entry. Clear breath sounds noted throughout. No obvious wheezing, rales, or rhonchi noted. Cardio: Regular rate. Normal S1 and S2. +S4. Frequent ectopic beats noted. No obvious murmurs, gallops, or rubs noted. Abdomen: Soft. NT. ND. Normal active bowel sounds x 4 quadrants. Extremities: Diminished throughout. No edema, clubbing, or cyanosis. Neuro: CN II-XII were grossly intact. No obvious focal deficits. Assessment: -Paroxysmal atrial fibrillation with RVR s/p Watchman device and previous DCCVs and ablations -Frequent PVCs -HFrEF (LVEF: 35-40% by echo done 12/27/2024) -SSS s/p DC PPM ([employer]) implantation done on 10/12/2024 -Nonobstructive CAD (20-30% stenosis in the proximal LAD) identified on CCTA done on 10/31/2022 -Hypochromic anemia -YENNY/OHS -Obesity Plan: 1. Paroxysmal atrial fibrillation with RVR s/p Watchman device and previous DCCVs and ablations -12H telemetry: A paced rhythm with frequent PVCs in the form of bigeminy -Currently stable, asymptomatic, and in a paced rhythm with frequent PVCs -The patient will continue on metoprolol tartrate 37.5 mg Q8H and amiodarone 200 mg BID in order to complete a 6 gram load. -CHADS2 VASc score: 4 points. s/p Watchman implantation. As a result, the patient will continue only on aspirin 81 mg daily. -Please keep the patient on continuous telemetry monitoring and maintain electrolytes within normal parameters. 2. Frequent PVCs -12H telemetry: A paced rhythm with frequent PVCs in the form of bigeminy -In order to optimize HR control, we will increase metoprolol tartrate to 37.5 mg Q8H. In addition, he will continue on amiodarone 200 mg BID. -We will obtain a device interrogation and 2V CXR to assess lead placement of the PPM. -Please keep the patient on continuous telemetry monitoring and maintain electrolytes within normal parameters. 3. HFrEF (LVEF: 35-40% by echo done 12/27/2024) -BNP: 71, admission: 108 -We will transition the patient from IV furosemide to oral furosemide 40 mg BID. -In addition, she will continue on metoprolol tartrate 37.5 mg Q8H, which will be transitioned to metoprolol succinate prior to discharge. -We will reassess the patient's hemodynamics once her rhythm is well controlled in order to determine her candidacy for GDMT with ACEI/ARB/ARNI therapy or aldosterone antagonist therapy. -Please record strict I/O's, daily weights, and restrict fluids to less than 2.0L/day This case was discussed with my Supervising Physician, Dr. Brett Kent, and the above mentioned plan was formulated and agreed upon. -Progress Note written by Renetta Syed, MSN, [employer], AGACNP-BC RENETTA SYED NP Dec 31, 2024 17:55
[2024-12-31] MEDS: metoPROLOL tartRATE 25 MG TAB PO SCH (21:13)
[2025-01-01] VITALS (11 sets, daily range): BP systolic 100–119; BP diastolic 42–58; PULSE 43–93; RESP 18–20; TEMP 97.5–97.8; O2SAT 93–95
[2025-01-01 05:42] LABS: HEMATOCRIT 33.7 % (36-48); MEAN CORPUSCULAR HEMOGLOBIN 32.8 pg (27.0-33.0); MEAN CORPUSCULAR HGB CONC 32.6 g/dL (32.0-36.0); MEAN CORPUSCULAR VOLUME 100.6 fL (79-99); RED BLOOD CELL COUNT(AUTO) 3.35 MIL/uL (4.00-5.50); RED CELL DISTRIBUTION WIDTH 13.5 % (11.0-15.5); WHITE BLOOD COUNT (AUTO) 8.9 K/uL (4.8-10.8)
[2025-01-01 05:52] LABS: CREATININE 1.3 mg/dL (0.5-1.0); POTASSIUM 4.3 mmol/L (3.5-5.1)
--- NOTE | 2025-01-01 08:30 | NUR ---
PATIENT GAVE ME THE INFORMATION OF HER PACEMAKER. [employer] CALLED. PENDING CALL BACK FROM LOCAL AUDITOR.
--- NOTE | 2025-01-01 11:39 | NUR ---
JASPREET FROM [facility] RETURNED CALL AND THEY WILL TRY TO SEE PATIENT TODAY FOR PACEMAKER INTERROGATION
--- NOTE | 2025-01-01 12:44 | PN ---
[facility] PROGRESS NOTE Date of Service: Jan 01, 2025 Time of Service: 12:42 SUBJECTIVE: [79-year-old female admitted secondary to shortness of breaths. Patient was noted with atrial fibrillation with RVR. Patient also was noted with acute heart failure exacerbation. She continues with oxygen via nasal cannula. Right upper lung noted fine crackles. She is currently being diuresed at this time with Lasix 40 mg b.i.d. IV. Patient is also currently on amiodarone drip per protocol. We will continue to follow recommendations from systems mechanic. ] 12/30/24 79-year-old female admitted secondary to shortness of breath. Patient was noted with atrial fibrillation with RVR. Patient also was noted with acute heart failure exacerbation. Currently improving with further medication adjustments by cardiology/Patient and son prefer to go home at discharge/CT angio planned for Thursday12/31/24 Patient followed up today, she was seen by cardio today and interrogation of pacemaker recommended. Medications have been adjusted, she will be on BB metropolol 37.5 mg TID, amiodarone 200 mg bid, furosemide 20 mg bid. 01/01/25 patient was evaluated today in her room. She is doing a lot better, on room air now. She is tolerating current medication on beta april and antiarrhythmic, diuretics all pills. Patient will have a CTA tomorrow. Interrogation of pacemaker pending. REVIEW OF SYSTEMS CONSTITUTIONAL: Denies fevers, chills, or night sweats. No unintentional weight loss reported. NEUROLOGICAL: Denies headache, amaurosis fugax, motor weakness, sensory deficit, vertigo/spinning sensation, gait abnormalities, or tremors. ENT: No hearing loss, otalgia, otorrhea, rhinitis, rhinorrhea, hoarseness, or sore throat. CARDIOVASCULAR: Lower extremity swelling, dyspnea on exertion, PND, orthopnea PULMONARY: Denies any shortness of breath, cough, phlegm/sputum, hemoptysis, pleuritic chest pain. SLEEP: Denies morning headaches, daytime somnolence or napping. Denies difficulty falling asleep, staying asleep, waking from sleep. Denies knowledge of snoring. GASTROINTESTINAL: Denies any type of dysphagia to either liquids or solids. Denies nausea, vomiting, pyrosis, early satiety, abdominal pain, diarrhea, constipation, or changes in stool consistency or caliber. Denies coffee-ground emesis, hematemesis, hematochezia, or melanotic stools. GENITOURINARY: Denies frequency, urgency, nocturia, hematuria or incontinence (Storage/Irritative symptoms.) Low urinary stream, straining to void, urinary intermittency or hesitancy, splitting of the voiding stream, terminal dribbling. ENDOCRINOLOGIC: Denies polyuria, polydipsia, polyphagia or heat/cold intolerances. HEMATOLOGIC: Denies thrombophilia/previous clots, or coagulopathy/bleeding disorders. ONCOLOGIC: Denies personal history of malignancy. DERMATOLOGIC: Denies rashes or pruritus. PSYCHIATRIC: Denies any suicidal or homicidal ideation. Denies hallucinations. PHYSICAL EXAM GENERAL APPEARANCE: The patient is awake, alert, and oriented, in no acute cardiopulmonary distress. NEUROLOGICAL: Cranial nerves II-XII grossly intact. Motor is 5/5 in bilateral upper and lower extremities proximal to distal. No sensory deficits. HEENT: Face is symmetric. Pupils are equal and reactive. Extraocular movements are intact. NECK: Supple. No JVD. No thyromegaly. No submental, submandibular, pre- /postauricular, occipital or supraclavicular lymphadenopathy. CHEST: Normal chest expansion. No Telemetry. LUNGS: Absence of any rales, rhonchi or any wheezing. CARDIOVASCULAR: irregular. S1 and S2 normal. No appreciable rubs, murmurs or gallops. ABDOMEN: Soft, nontender, and nondistended. There is no rebound, voluntary guarding, or rigidity. : Deferred. No Mcmillan. EXTREMITIES: 2+ pitting edema of the bilateral lower extremities. No clubbing. Good capillary refill. SKIN: No skin breakdown. Vital Signs (last 8hr) Date Time Temp Pulse Resp B/P (MAP) Pulse Ox O2 Delivery O2 Flow Rate FiO2 01/01/25 11:04 97.5 87 18 105/49 94 Room Air 01/01/25 07:16 44 18 N/A Room Air 21 01/01/25 07:08 97.5 44 18 116/51 94 Room Air LABS: Laboratory: Test 01/01/25 05:35 01/01/25 05:20 Range/Units White Blood Count 8.9 4.8-10.8 K/uL Red Blood Count 3.35 L 4.00-5.50 MIL/uL Hemoglobin 11.0 L 12.0-16.0 g/dL Hematocrit 33.7 L 36-48 % Mean Corpuscular Volume 100.6 H 79-99 fL Mean Corpuscular Hemoglobin 32.8 27.0-33.0 pg Mean Corpuscular Hemoglobin Concent 32.6 32.0-36.0 g/dL Red Cell Distribution Width 13.5 11.0-15.5 % Platelet Count 187 130-400 K/uL Mean Platelet Volume 9.9 7.5-10.5 fL Nucleated Red Blood Cells 0.0 0.0-0.19 % Sodium Level 140 136-145 mmol/L Potassium Level 4.3 3.5-5.1 mmol/L Chloride Level 103 101-111 mmol/L Carbon Dioxide Level 27 21-32 mmol/L Blood Urea Nitrogen 32 H 7-18 mg/dL Creatinine 1.3 H 0.5-1.0 mg/dL Glomerular Filtration Rate Calc 42 >90 mL/min Random Glucose 117 H 70-105 mg/dL Total Calcium 9.3 8.5-10.1 mg/dL Magnesium Level 2.00 1.80-2.40 mg/dL Whole Blood Glucose 132 H 70-110 MG/DL Current Medications Medications (Trade) Dose Ordered Sig/Ruddy Route PRN Reason Start Time Stop Time Status Last Admin Dose Admin Acetaminophen (TYLenol 325MG TAB) 650 mg Q6H PRN PO MILD PAIN (1-3) 12/28/24 14:00 01/27/25 13:59 Amiodarone HCl (pacERONE 200MG) 200 mg BID PO 12/30/24 09:00 01/29/25 08:59 01/01/25 09:22 200 MG Amiodarone HCl 540 mg/Dextrose 300 ml @ 16.667 mls/ hr PROTOCOL IV 12/28/24 14:00 12/29/24 11:01 DC 12/28/24 20:50 16.667 MLS/HR Amiodarone HCl 540 mg/Dextrose 300 ml @ 0 mls/hr PROTOCOL IV 12/29/24 11:00 01/28/25 10:59 12/29/24 18:16 16.6 MLS/HR Aspirin (Aspirin 81mg Chew Tab) 81 mg DAILY PO 12/29/24 09:00 01/28/25 08:59 01/01/25 09:22 81 MG Atorvastatin Calcium (LIPItor 40MG) 80 mg HS PO 12/28/24 21:00 01/27/25 20:59 12/31/24 21:12 80 MG Enoxaparin Sodium (Lovenox) 40 mg DAILY SQ 12/29/24 09:00 01/28/25 08:59 01/01/25 09:22 40 MG Furosemide (LASix 20MG VIAL) 20 mg Q8H IV 12/28/24 14:00 12/29/24 09:26 DC 12/29/24 07:08 20 MG Furosemide (LASix 20MG VIAL) 40 mg BID IV 12/29/24 09:30 12/29/24 09:30 DC Furosemide (LASix 40MG TAB) 40 mg BID@09,17 PO 12/31/24 17:00 01/30/25 16:59 01/01/25 09:23 40 MG Furosemide (LASix 40MG VIAL) 40 mg BID IV 12/29/24 21:00 12/30/24 07:50 DC 12/29/24 20:49 40 MG Furosemide (LASix 40MG VIAL) 40 mg Q8H5 IV 12/30/24 08:00 12/31/24 14:32 DC 12/31/24 12:32 40 MG Home Med (Home Medication) Cholecalciferol (Vitamin D3) 10 MCG DAILY PO 12/29/24 09:00 01/28/25 08:59 Home Med (Home Medication) Magnesium 250 MG HS PO 12/28/24 21:00 01/27/25 20:59 Home Med (Home Medication) Verapamil HCl (Verapa... HS PO 12/28/24 21:00 12/31/24 14:32 DC Lisinopril (Prinivil 40mg) 40 mg DAILY PO 12/29/24 09:00 12/30/24 07:52 DC 12/29/24 09:55 40 MG Magnesium Sulfate 50 ml @ 0 mls/hr PROTOCOL IV 12/28/24 14:00 01/27/25 13:59 Metoprolol Tartrate (loprESSOR) 25 mg TID PO 12/30/24 08:00 12/31/24 14:32 DC 12/31/24 09:07 25 MG Metoprolol Tartrate (loprESSOR) 37.5 mg TID PO 12/31/24 21:00 01/30/25 20:59 01/01/25 09:22 37.5 MG Metoprolol Tartrate (loprESSOR) 50 mg TID PO 12/30/24 08:00 12/30/24 07:53 DC Ondansetron HCl (zoFRAN 4MG INJ) 4 mg Q6H PRN IVP NAUSEA/VOMITING 12/28/24 14:00 01/27/25 13:59 Pantoprazole Sodium (PROTonix 40MG TAB) 40 mg DAILY PO 12/29/24 09:00 01/28/25 08:59 01/01/25 09:22 40 MG Potassium Chloride 100 ml @ 100 mls/hr AD PRN IV POTASSIUM PROTOCOL 12/28/24 14:00 01/27/25 13:59 Potassium Chloride (K-Dur/Klor-Con 20meq) 20 meq AD PRN PO POTASSIUM PROTOCOL 12/28/24 14:00 01/27/25 13:59 Potassium Chloride (K-Dur/Klor-Con 20meq) 20 meq BID PO 12/29/24 21:00 01/28/25 20:59 01/01/25 09:22 20 MEQ Potassium Chloride (KCl 10% Elixir 20meq/15ml) 20 meq AD PRN PO POTASSIUM PROTOCOL 12/28/24 14:00 01/27/25 13:59 Vitamin B Complex (Vitamin B-12) 1,000 mcg DAILY PO 12/29/24 09:00 01/28/25 08:59 01/01/25 09:22 1,000 MCG DIAGNOSTICS / RADIOLOGY: [ ] ASSESSMENT: Acute heart failure exacerbation, pending 2D echocardiogram to assess for systolic/diastolic function, POA Acute hypoxemic respiratory failure, POA Paroxysmal atrial fibrillation with ventricular bigeminy, POA History of Watchman device placement about five years ago, POA History of prior cardioversions and cardiac ablation for atrial fibrillation, POA Hypertension, POA Hyperlipidemia, POA Obstructive sleep apnea maintained on outpatient CPAP, POA Obesity, POA PLAN: C/w cardiac telemetry floor Continue with supplemental O2 therapy to maintain oxygen saturation greater than 92% Continue with Amiodarone 200 mg po BID, Lopressor 37.5 mg TID, we appreciate rec's from cardio -Pacemaker interrogation, CTA on 01/02/25 IV Lasix 20 mg q8h for IV diuresis We will maintain K greater than four and magnesium greater than two We will keep patient on telemetry for the next 24-48 hours to assess PVC burden We will follow up results of 2D echocardiogram to assess LVEF, further workup based on results of 2D echocardiogram if cardiomyopathy is confirmed Continue with rest of the home medications Interrogate her Pacemaker DVT prophylaxis with Lovenox 40 mg subcutaneous daily GI prophylaxis with Protonix Patient to resume CPAP tonight for management of obstructive sleep apnea All labs will be repeated in the morning Case was seen and examined with Dr. Mays, above plan was formulated ATTESTATION BY PHYSICIAN I have seen and examined the patient. I reviewed the documentation, medical decision making, and treatment plan as noted by the mid-level provider above. I agree with the findings and plan of care. Carmencita Mays MD, [facility] Jan 01, 2025 12:44
[2025-01-01] MEDS: metoPROLOL tartRATE 25 MG TAB PO SCH (14:50)
--- NOTE | 2025-01-01 15:42 | PN ---
Cardiology Progress Note Date of Service: 01/01/2025 Attending Faculty Research Assistant: Dr. Brett Kent Primary Faculty Research Assistant: Dr. Alexa Omer Reason for Consult: Paroxysmal atrial fibrillation with RVR Problem List: -Paroxysmal atrial fibrillation with RVR s/p Watchman device and previous DCCVs and ablations -Frequent PVCs -HFrEF (LVEF: 35-40% by echo done 12/27/2024) -SSS s/p DC PPM ([employer]) implantation done on 10/12/2024 -Nonobstructive CAD (20-30% stenosis in the proximal LAD) identified on CCTA done on 10/31/2022 -Hypochromic anemia -YENNY/OHS -Obesity Subjective: This is a 79-year-old female who was seen and evaluated at the bedside today. The patient continues to deny any active complaints including chest pain, chest pressure, palpitations, or shortness for breath. As per the nurse, there were no overnight events. Of note, is that the patient continues with frequent PVCs in the form of bigeminy despite the increase in BB therapy. Vitals/Labs Vital Signs Date Time Temp Pulse Resp B/P (MAP) Pulse Ox O2 Delivery O2 Flow Rate FiO2 01/01/25 11:04 97.5 87 18 105/49 94 Room Air 01/01/25 07:16 21 12/31/24 20:00 0 General: Alert and oriented x 3. NAD. Chronically ill appearing. HEENT: NC/AT. Oral mucosa is moist. Neck: No masses or JVD. Lungs: NRD. SCM. Bilateral air entry. Clear breath sounds noted throughout. No obvious wheezing, rales, or rhonchi noted. Cardio: Regular rate. Normal S1 and S2. +S4. Frequent ectopic beats noted. No obvious murmurs, gallops, or rubs noted. Abdomen: Soft. NT. ND. Normal active bowel sounds x 4 quadrants. Extremities: Diminished throughout. No edema, clubbing, or cyanosis. Neuro: CN II-XII were grossly intact. No obvious focal deficits. Laboratory Tests 01/01/25 05:35 Assessment: -Paroxysmal atrial fibrillation with RVR s/p Watchman device and previous DCCVs and ablations -Frequent PVCs -HFrEF (LVEF: 35-40% by echo done 12/27/2024) -SSS s/p DC PPM ([employer]) implantation done on 10/12/2024 -Nonobstructive CAD (20-30% stenosis in the proximal LAD) identified on CCTA done on 10/31/2022 -Hypochromic anemia -YENNY/OHS -Obesity Plan: 1. Paroxysmal atrial fibrillation with RVR s/p Watchman device and previous DCCVs and ablations -12H telemetry: A paced rhythm with frequent PVCs in the form of bigeminy -Currently stable, asymptomatic, and in a paced rhythm with frequent PVCs -The patient will continue on metoprolol tartrate 50 mg Q8H and amiodarone 200 mg BID in order to complete a 6 gram load then should transition to 200 mg daily (01/12/2025). -CHADS2 VASc score: 4 points. s/p Watchman implantation. As a result, the patient will continue only on aspirin 81 mg daily. -Please keep the patient on continuous telemetry monitoring and maintain electrolytes within normal parameters. 2. Frequent PVCs -12H telemetry: A paced rhythm with frequent PVCs in the form of bigeminy -In order to optimize HR control, we will increase metoprolol tartrate from 37.5 mg to 50 mg Q8H and will start the patient on magnesium oxide 400 mg QHS. In addition, she will continue on amiodarone 200 mg BID. -Device interrogation is pending and we will have EP, Dr. Barboza evaluate the patient for further treatment recommendations regarding her arrhythmia. -Please keep the patient on continuous telemetry monitoring and maintain electrolytes within normal parameters. 3. HFrEF (LVEF: 35-40% by echo done 12/27/2024) -Continue furosemide furosemide 40 mg BID and metoprolol tartrate 50 mg Q8H (which will be transitioned to metoprolol succinate prior to discharge). -We will reassess the patient's hemodynamics once her rhythm is well controlled in order to determine her candidacy for GDMT with ACEI/ARB/ARNI therapy or aldosterone antagonist therapy. -Please record strict I/O's, daily weights, and restrict fluids to less than 2.0L/day This case was discussed with my Supervising Physician, Dr. Brett Kent, and the above mentioned plan was formulated and agreed upon. -Progress Note written by Renetta Beltran, MSN, PMO BUSINESS ANALYST, AGACNP-BC RENETTA BELTRAN NP Jan 01, 2025 15:42
[2025-01-01] MEDS: MAGNESIUM OXIDE 400 MG TABLET PO SCH (20:39)
[2025-01-02] VITALS (10 sets, daily range): BP systolic 104–124; BP diastolic 50–81; PULSE 42–86; RESP 16–22; TEMP 97.6–98; O2SAT 95–97
[2025-01-02 04:24] LABS: MEAN CORPUSCULAR HEMOGLOBIN 33.2 pg (27.0-33.0); MEAN CORPUSCULAR HGB CONC 32.9 g/dL (32.0-36.0); MEAN CORPUSCULAR VOLUME 100.9 fL (79-99); RED BLOOD CELL COUNT(AUTO) 3.37 MIL/uL (4.00-5.50); RED CELL DISTRIBUTION WIDTH 13.3 % (11.0-15.5); WHITE BLOOD COUNT (AUTO) 9.1 K/uL (4.8-10.8)
[2025-01-02 04:40] LABS: CREATININE 1.6 mg/dL (0.5-1.0); POTASSIUM 4.3 mmol/L (3.5-5.1)
--- NOTE | 2025-01-02 07:11 | PN ---
[facility] PROGRESS NOTE Date of Service: Jan 02, 2025 Time of Service: 07:06 SUBJECTIVE: [79-year-old female admitted secondary to shortness of breaths. Patient was noted with atrial fibrillation with RVR. Patient also was noted with acute heart failure exacerbation. She continues with oxygen via nasal cannula. Right upper lung noted fine crackles. She is currently being diuresed at this time with Lasix 40 mg b.i.d. IV. Patient is also currently on amiodarone drip per protocol. We will continue to follow recommendations from floral arranger. ] 12/30/24 79-year-old female admitted secondary to shortness of breath. Patient was noted with atrial fibrillation with RVR. Patient also was noted with acute heart failure exacerbation. Currently improving with further medication adjustments by cardiology/Patient and son prefer to go home at discharge/CT angio planned for Thursday12/31/24 Patient followed up today, she was seen by cardio today and interrogation of pacemaker recommended. Medications have been adjusted, she will be on BB metropolol 37.5 mg TID, amiodarone 200 mg bid, furosemide 20 mg bid. 01/01/25 patient was evaluated today in her room. She is doing a lot better, on room air now. She is tolerating current medication on beta april and antiarrhythmic, diuretics all pills. Patient will have a CTA tomorrow. Interrogation of pacemaker pending. 01/02/25 Patient evaluated in the room, tolerating room air so far. Her vitals reviewed, she remained jazmin in the 40's for 48 hours now. Her I&O reviewed, progressing well current weight is 68.9 kg, from 114 kg on admission. She is pending PPM interrogation and CTA cardiac angio, but since her kidney function going up, it was deferred for later time. REVIEW OF SYSTEMS CONSTITUTIONAL: Denies fevers, chills, or night sweats. No unintentional weight loss reported. NEUROLOGICAL: Denies headache, amaurosis fugax, motor weakness, sensory deficit, vertigo/spinning sensation, gait abnormalities, or tremors. ENT: No hearing loss, otalgia, otorrhea, rhinitis, rhinorrhea, hoarseness, or sore throat. CARDIOVASCULAR: Lower extremity swelling, dyspnea on exertion, PND, orthopnea PULMONARY: Denies any shortness of breath, cough, phlegm/sputum, hemoptysis, pleuritic chest pain. SLEEP: Denies morning headaches, daytime somnolence or napping. Denies difficulty falling asleep, staying asleep, waking from sleep. Denies knowledge of snoring. GASTROINTESTINAL: Denies any type of dysphagia to either liquids or solids. Denies nausea, vomiting, pyrosis, early satiety, abdominal pain, diarrhea, constipation, or changes in stool consistency or caliber. Denies coffee-ground emesis, hematemesis, hematochezia, or melanotic stools. GENITOURINARY: Denies frequency, urgency, nocturia, hematuria or incontinence (Storage/Irritative symptoms.) Low urinary stream, straining to void, urinary intermittency or hesitancy, splitting of the voiding stream, terminal dribbling. ENDOCRINOLOGIC: Denies polyuria, polydipsia, polyphagia or heat/cold intolerances. HEMATOLOGIC: Denies thrombophilia/previous clots, or coagulopathy/bleeding disorders. ONCOLOGIC: Denies personal history of malignancy. DERMATOLOGIC: Denies rashes or pruritus. PSYCHIATRIC: Denies any suicidal or homicidal ideation. Denies hallucinations. PHYSICAL EXAM GENERAL APPEARANCE: The patient is awake, alert, and oriented, in no acute cardiopulmonary distress. NEUROLOGICAL: Cranial nerves II-XII grossly intact. Motor is 5/5 in bilateral upper and lower extremities proximal to distal. No sensory deficits. HEENT: Face is symmetric. Pupils are equal and reactive. Extraocular movements are intact. NECK: Supple. No JVD. No thyromegaly. No submental, submandibular, pre-/p ostauricular, occipital or supraclavicular lymphadenopathy. CHEST: Normal chest expansion. No Telemetry. LUNGS: Absence of any rales, rhonchi or any wheezing. CARDIOVASCULAR: irregular. S1 and S2 normal. No appreciable rubs, murmurs or gallops. ABDOMEN: Soft, nontender, and nondistended. There is no rebound, voluntary guarding, or rigidity. : Deferred. No Mcmillan. EXTREMITIES: 2+ pitting edema of the bilateral lower extremities. No clubbing. Good capillary refill. SKIN: No skin breakdown. Vital Signs (last 8hr) Date Time Temp Pulse Resp B/P (MAP) Pulse Ox O2 Delivery O2 Flow Rate FiO2 01/02/25 04:32 98.1 43 20 117/67 97 CPAP 01/01/25 23:59 97.7 61 20 111/53 95 Room Air 01/01/25 23:32 48 19 01/01/25 23:31 48 19 N/A Room Air 21 LABS: Laboratory: Test 01/02/25 03:54 01/01/25 05:20 Range/Units White Blood Count 9.1 4.8-10.8 K/uL Red Blood Count 3.37 L 4.00-5.50 MIL/uL Hemoglobin 11.2 L 12.0-16.0 g/dL Hematocrit 34.0 L 36-48 % Mean Corpuscular Volume 100.9 H 79-99 fL Mean Corpuscular Hemoglobin 33.2 H 27.0-33.0 pg Mean Corpuscular Hemoglobin Concent 32.9 32.0-36.0 g/dL Red Cell Distribution Width 13.3 11.0-15.5 % Platelet Count 190 130-400 K/uL Mean Platelet Volume 10.1 7.5-10.5 fL Nucleated Red Blood Cells 0.0 0.0-0.19 % Sodium Level 137 136-145 mmol/L Potassium Level 4.3 3.5-5.1 mmol/L Chloride Level 100 L 101-111 mmol/L Carbon Dioxide Level 26 21-32 mmol/L Blood Urea Nitrogen 40 H 7-18 mg/dL Creatinine 1.6 H 0.5-1.0 mg/dL Glomerular Filtration Rate Calc 33 >90 mL/min Random Glucose 122 H 70-105 mg/dL Total Calcium 9.4 8.5-10.1 mg/dL Magnesium Level 2.00 1.80-2.40 mg/dL Whole Blood Glucose 132 H 70-110 MG/DL Current Medications Medications (Trade) Dose Ordered Sig/Ruddy Route PRN Reason Start Time Stop Time Status Last Admin Dose Admin Acetaminophen (TYLenol 325MG TAB) 650 mg Q6H PRN PO MILD PAIN (1-3) 12/28/24 14:00 01/27/25 13:59 Amiodarone HCl (pacERONE 200MG) 200 mg BID PO 12/30/24 09:00 01/29/25 08:59 01/01/25 20:39 200 MG Amiodarone HCl 540 mg/Dextrose 300 ml @ 16.667 mls/ hr PROTOCOL IV 12/28/24 14:00 12/29/24 11:01 DC 12/28/24 20:50 16.667 MLS/HR Amiodarone HCl 540 mg/Dextrose 300 ml @ 0 mls/hr PROTOCOL IV 12/29/24 11:00 01/28/25 10:59 12/29/24 18:16 16.6 MLS/HR Aspirin (Aspirin 81mg Chew Tab) 81 mg DAILY PO 12/29/24 09:00 01/28/25 08:59 01/01/25 09:22 81 MG Atorvastatin Calcium (LIPItor 40MG) 80 mg HS PO 12/28/24 21:00 01/27/25 20:59 01/01/25 20:40 80 MG Enoxaparin Sodium (Lovenox) 40 mg DAILY SQ 12/29/24 09:00 01/28/25 08:59 01/01/25 09:22 40 MG Furosemide (LASix 20MG VIAL) 20 mg Q8H IV 12/28/24 14:00 12/29/24 09:26 DC 12/29/24 07:08 20 MG Furosemide (LASix 20MG VIAL) 40 mg BID IV 12/29/24 09:30 12/29/24 09:30 DC Furosemide (LASix 40MG TAB) 40 mg BID@09,17 PO 12/31/24 17:00 01/30/25 16:59 01/01/25 17:09 40 MG Furosemide (LASix 40MG VIAL) 40 mg BID IV 12/29/24 21:00 12/30/24 07:50 DC 12/29/24 20:49 40 MG Furosemide (LASix 40MG VIAL) 40 mg Q8H5 IV 12/30/24 08:00 12/31/24 14:32 DC 12/31/24 12:32 40 MG Home Med (Home Medication) Cholecalciferol (Vitamin D3) 10 MCG DAILY PO 12/29/24 09:00 01/28/25 08:59 Home Med (Home Medication) Magnesium 250 MG HS PO 12/28/24 21:00 01/01/25 15:38 DC Home Med (Home Medication) Verapamil HCl (Verapa... HS PO 12/28/24 21:00 12/31/24 14:32 DC Lisinopril (Prinivil 40mg) 40 mg DAILY PO 12/29/24 09:00 12/30/24 07:52 DC 12/29/24 09:55 40 MG Magnesium Oxide (Mag-Ox) 400 mg PM PO 01/01/25 21:00 01/31/25 20:59 01/01/25 20:39 400 MG Magnesium Sulfate 50 ml @ 0 mls/hr PROTOCOL IV 12/28/24 14:00 01/27/25 13:59 Metoprolol Tartrate (loprESSOR) 25 mg TID PO 12/30/24 08:00 12/31/24 14:32 DC 12/31/24 09:07 25 MG Metoprolol Tartrate (loprESSOR) 37.5 mg TID PO 12/31/24 21:00 01/01/25 14:39 DC 01/01/25 09:22 37.5 MG Metoprolol Tartrate (loprESSOR) 50 mg TID PO 12/30/24 08:00 12/30/24 07:53 DC Metoprolol Tartrate (loprESSOR) 50 mg TID PO 01/01/25 15:00 01/31/25 14:59 01/01/25 20:40 50 MG Ondansetron HCl (zoFRAN 4MG INJ) 4 mg Q6H PRN IVP NAUSEA/VOMITING 12/28/24 14:00 01/27/25 13:59 Pantoprazole Sodium (PROTonix 40MG TAB) 40 mg DAILY PO 12/29/24 09:00 01/28/25 08:59 01/01/25 09:22 40 MG Potassium Chloride 100 ml @ 100 mls/hr AD PRN IV POTASSIUM PROTOCOL 12/28/24 14:00 01/27/25 13:59 Potassium Chloride (K-Dur/Klor-Con 20meq) 20 meq AD PRN PO POTASSIUM PROTOCOL 12/28/24 14:00 01/27/25 13:59 Potassium Chloride (K-Dur/Klor-Con 20meq) 20 meq BID PO 12/29/24 21:00 01/28/25 20:59 01/01/25 20:41 20 MEQ Potassium Chloride (KCl 10% Elixir 20meq/15ml) 20 meq AD PRN PO POTASSIUM PROTOCOL 12/28/24 14:00 01/27/25 13:59 Vitamin B Complex (Vitamin B-12) 1,000 mcg DAILY PO 12/29/24 09:00 01/28/25 08:59 01/01/25 09:22 1,000 MCG DIAGNOSTICS / RADIOLOGY: [ ] ASSESSMENT: Acute heart failure exacerbation, pending 2D echocardiogram to assess for systolic/diastolic function, POA Acute hypoxemic respiratory failure, POA Paroxysmal atrial fibrillation with ventricular bigeminy, POA History of Watchman device placement about five years ago, POA History of prior cardioversions and cardiac ablation for atrial fibrillation, POA Hypertension, POA Hyperlipidemia, POA Obstructive sleep apnea maintained on outpatient CPAP, POA Obesity, POA PLAN: C/w cardiac telemetry floor Continue with supplemental O2 therapy to maintain oxygen saturation greater than 92% Continue with Amiodarone 200 mg po BID, Lopressor adjusted to 50 mg TID, we appreciate rec's from cardio -Pending Pacemaker interrogation, CTA deferred, now [facility] in am by Dr. Uribe -Per cardio dc Furosemide 40 mg BID We will maintain K greater than four and magnesium greater than two We will keep patient on telemetry to assess PVC burden 2decho reviewed Continue with rest of the home medications DVT prophylaxis with Lovenox 40 mg subcutaneous daily GI prophylaxis with Protonix Patient to resume CPAP nightly for management of obstructive sleep apnea All labs will be repeated in the morning Case was seen and examined with Dr. Mays, above plan was formulated ATTESTATION BY PHYSICIAN I have seen and examined the patient. I reviewed the documentation, medical decision making, and treatment plan as noted by the mid-level provider above. I agree with the findings and plan of care. Carmencita Mays MD, [facility] Jan 02, 2025 07:10
--- NOTE | 2025-01-02 09:59 | NUR ---
LASIX PLACED ON HOLD PER KAIT BERUMEN NP FOR TODAY AND CTA WAS CANCELLED.
--- NOTE | 2025-01-02 10:21 | PN ---
[facility] CARDIOLOGY PROGRESS NOTE Date Patient Seen: Jan 02, 2025 Time of Visit: 10:09 Interval History: This is a 79-year-old white female with history of hypertension, hyperlipidemia, obesity, obstructive sleep apnea on CPAP, history of paroxysmal atrial f ibrillation with prior history of prior cardioversions, history of Watchman device about five years ago, recent history of cardioversion in 11/2024 presented to the ER for further evaluation of shortness of breath. On December 06, her amiodarone was decreased 200 mg bid to qd. At that visit, she was noted to have frequent PVCs and was started on verapamil. She has been following up with Dr Barboza most recently. Outpatient 2d echo 12/27/2024 demonstrated normal LV size for BSA 2.6 cm/m2, LVEF 35-40%, mild left atrial enlargement. The patient's symptoms had been ongoing for 7-10 days accompanied by progressive shortness of breath, and dyspnea on exertion at 100 ft of ambulation. She has been managed with an IV Lasix diuresis and her creatinine has risen from 1.2-1.6 today. She is comfortable without orthopnea or PND. She has undergone further evaluation with pacemaker interrogation this morning demonstrating underlying rhythm to be normal sinus rhythm with last episode of atrial fibrillation 11/17/2024. She is noted to have 19% a paced, 14% V paced but is having frequent PVCs. Metoprolol tartrate has been advanced to 50 mg p.o. t.i.d. and she has been restarted on amiodarone currently at 200 mg p.o. b.i.d.. She is scheduled to undergo a CT coronary angiogram this morning but given her rising creatinine and her frequent PVCs, CT coronary angiogram will be deferred. Physical Examination: GENERAL: No acute distress. HEAD: Normal with no signs of head trauma. EYES: PERRLA, EOMI, conjunctiva and sclera normal. NECK: Supple without JVD. There is no tenderness, lymphadenopathy, or masses. No thyromegaly. Normal carotid upstrokes without bruits. LUNGS: Clear breath sounds bilaterally. No wheezes, or rhonchi. HEART: Normal rate and rhythm. Normal S1 and S2 without murmurs, gallop or rub. There is frequent extrasystole noted. VASC: Peripheral pulses +2 bilaterally. EXT: No clubbing, cyanosis or edema. NEURO: Awake, alert, and oriented x3. No focal neurological deficits noted. Laboratory: Hematology Labs: Test 01/02/25 03:54 Range/Units White Blood Count 9.1 4.8-10.8 K/uL Red Blood Count 3.37 L 4.00-5.50 MIL/uL Hemoglobin 11.2 L 12.0-16.0 g/dL Hematocrit 34.0 L 36-48 % Mean Corpuscular Volume 100.9 H 79-99 fL Mean Corpuscular Hemoglobin 33.2 H 27.0-33.0 pg Mean Corpuscular Hemoglobin Concent 32.9 32.0-36.0 g/dL Red Cell Distribution Width 13.3 11.0-15.5 % Platelet Count 190 130-400 K/uL Mean Platelet Volume 10.1 7.5-10.5 fL Nucleated Red Blood Cells 0.0 0.0-0.19 % Chemistry Labs: Test 01/02/25 03:54 01/01/25 05:20 Range/Units Sodium Level 137 136-145 mmol/L Potassium Level 4.3 3.5-5.1 mmol/L Chloride Level 100 L 101-111 mmol/L Carbon Dioxide Level 26 21-32 mmol/L Blood Urea Nitrogen 40 H 7-18 mg/dL Creatinine 1.6 H 0.5-1.0 mg/dL Glomerular Filtration Rate Calc 33 >90 mL/min Random Glucose 122 H 70-105 mg/dL Total Calcium 9.4 8.5-10.1 mg/dL Magnesium Level 2.00 1.80-2.40 mg/dL Whole Blood Glucose 132 H 70-110 MG/DL Diagnostics / Radiology: Impression and Plan: Paroxysmal atrial fibrillation with RVR s/p Watchman device and previous DCCVs and ablations Frequent PVCs: CHADS2 VASc score: 4 points. s/p Watchman implantation: -interrogation of her pacemaker this morning demonstrates underlying rhythm to be normal sinus rhythm, 19% a paced, 14% V paced and prior 80/AF burden of 40%. Last atrial fibrillation episode 11/17/2024: -she has continued with frequent PVCs despite metoprolol tartrate 50 mg p.o. t.i.d. -amiodarone has been increased to 200 mg p.o. b.i.d. with plans to complete a 6 gram load then should transition to 200 mg daily (01/12/2025), or per Dr. Barboza recommendations in AM -await follow-up consultation with Dr. Crow Barboza in AM -continue aspirin 81 mg p.o. daily HFrEF (LVEF: 35-40% by echo done 12/27/2024), possibly PVC related: Nonobstructive CAD (20-30% stenosis in the proximal LAD) identified on CCTA done on 10/31/2022: -given frequency of PVCs, and rise in creatinine to 1.6 we will defer plans for CCTA -hold furosemide today and give normal saline at 100 cc/hour x5 hours -obtain follow-up basic metabolic panel in a.m. -proceed with scheduling left heart catheterization in a.m. to redefine her coronary anatomy given that the CCTA will be unreliable due to frequency of PVC. Risks, benefits and alternatives have been discussed included but not limited to 0.1% risk of DC, stroke or and she wishes to proceed. Further re commendations pending results of the cardiac catheterization -We will reassess the patient's hemodynamics once her rhythm is well controlled in order to determine her candidacy for GDMT with ACEI/ARB/ARNI therapy or aldosterone antagonist therapy. -SSS s/p DC PPM ([employer]) implantation done on 10/12/2024: -status post interrogation of pacemaker this morning demonstrates normal device functioning, battery longevity is 9.5-9.9 years, program DDDR with base rate of 60, 19% a paced, 14% V paced with last atrial fibrillation 11/17/2024 -Hypochromic anemia -YENNY/OHS -Obesity PHYSICIAN ATTESTATION OF PHYSICIAN WOODS SUPERINTENDENT DOCUMENTATION: I attest that I was physically present for the sanchez portions of the service and evaluated the patient with the Physician Boat Carpenter, and I reviewed and discussed the case with the Physician Boat Carpenter and made modifications to the Physician Boat Carpenter's findings and plans of care as documented above MAXINE BERUMEN Jan 02, 2025 10:21 MANJU BAKER MD Jan 04, 2025 10:22
[2025-01-02] MEDS: 0.9%NACL 1000ML 1,000 ML IV ONE (10:54)
--- NOTE | 2025-01-02 14:54 | EKG ---
[facility] Test Date: 2025-01-02 Test Time: 09:47:00 Pat Name: NATASHA BURDEN Department: 2D Room: 222 1 Gender: F Bottle Washer: FERNANDO : 1945 Requested By: MAXINE BERUMEN Order Number: [id number] Reading MD: Oswald Clinton Measurements Intervals [place] Rate: 43 P: 0 [place]: 0 QRS: -1 QRSD: 107 T: 256 QT: 684 QTc: 578 Interpretive Statements Junctional rhythm Probable left ventricular hypertrophy Repol abnrm, global ischemia, diffuse leads Tall T waves suggest hyperkalemia Prolonged QT interval Electronically Signed On 01-03-2025 13:36:17 CDT by Oswald Clinton Please click the below link to view image of tracing.
[2025-01-02] MEDS: metoPROLOL tartRATE 50 MG TAB PO SCH (15:12)
[2025-01-03] VITALS (18 sets, daily range): BP systolic 11–129; BP diastolic 40–67; PULSE 45–85; RESP 16–19; TEMP 97.3–97.6; O2SAT 92–97
[2025-01-03 03:58] LABS: HEMATOCRIT 33.4 % (36-48); MEAN CORPUSCULAR HEMOGLOBIN 32.3 pg (27.0-33.0); MEAN CORPUSCULAR HGB CONC 32.3 g/dL (32.0-36.0); RED BLOOD CELL COUNT(AUTO) 3.34 MIL/uL (4.00-5.50); RED CELL DISTRIBUTION WIDTH 13.3 % (11.0-15.5); WHITE BLOOD COUNT (AUTO) 8.6 K/uL (4.8-10.8)
[2025-01-03 04:08] LABS: CREATININE 1.6 mg/dL (0.5-1.0); POTASSIUM 4.3 mmol/L (3.5-5.1)
[2025-01-03 04:10] LABS: INR 1.2 (0.85-1.15); PROTHROMBIN TIME 12.5 SEC (9.6-11.6)
[2025-01-03 04:11] LABS: PARTIAL THROMBOPLASTIN TIME 26.8 SEC (26.3-35.5)
--- NOTE | 2025-01-03 08:56 | CONS ---
HPI: This is a 79 year old female with persistent atrial fibrillation status post pulmonary venous antral isolation in [place] in 2014 with redo 09/10/2015 and 12/18/2015 with left atrial appendage isolation and status post recent cardio version 11/17/2024 after an oral load of amiodarone. She is also status post watchman implant 3 years ago. She has a history of nonobstructive coronary artery disease by coronary CTA in October 2022, hypertension, hyperlipidemia, obstructive sleep apnea and morbid obesity. She is status post dual-chamber pacemaker insertion 10/12/2024 secondary to symptomatic bradycardia while on medical therapy for atrial fibrillation. She was seen in the office 12/06/2024 for postprocedural follow-up after undergone cardioversion and was found to be and sinus rhythm with ventricular bigeminy. An echocardiogram was ordered to assess her LVEF, as well as a coronary CTA to determine obstructive coronary artery disease. She was started on verapamil for management of PVCs and amiodarone was tapered to 200 mg once daily. She contacted the office 12/28/2024 to report shortness of breath, palpitations, lower extremity edema and weakness. She then presented to the emergency department on 12/28/2024. She was found to be in an atrial paced rhythm with ventricular bigeminy on admission. She was started on amiodarone infusion due to the frequent PVCs and has been transitioned to amiodarone 200 mg twice daily. She had an outpatient echocardiogram 12/27/2024 which showed an ejection fraction of 35-40%. This is in contrast to an ejection fraction of 55-60% 02/09/2024. She underwent device interrogation on 01/02/2025 which showed a presenting rhythm of A paced-V sensed with ventricular bigeminy. Her PVC burden is 25% since October 2024. An EKG 01/02/2025 shows an atrial paced rhythm with ventricular bigeminy. The PVCs have a right bundle-branch morphology, superior axis, RS in lead 1 (isoelectric) suggesting basal inferior LV origin. Her EKG this morning shows sinus rhythm with a heart rate of 92 beats per minute. On telemetry she has an atrial paced rhythm with ventricular bigeminy. White blood count 8.6, hemoglobin 10.8, hematocrit 33.4, platelets 187, creatinine 1.6 (baseline 1.2), potassium 4.3. This morning, she is do well and offers no new cardiac complaints. She is pending left heart catheterization by Dr. Uribe this morning. Patient History: PAST MEDICAL HISTORY: As noted above. SOCIAL HISTORY: She is a nonsmoker. SURGICAL HISTORY: As noted above. Allergies: Coded Allergies: codeine (Verified Adverse Reaction, Mild, 02/09/24) NAUSEA, VOMITING Vital Signs Vital Signs 01/02/25 01/03/25 01/03/25 08:00 06:50 07:31 Temp 97.5 Pulse 84 Resp 16 B/P (MAP) 124/54 Pulse Ox 95 O2 Delivery Room Air O2 Flow Rate 0 FiO2 21 Appearance: Well dev, well nourished Eyes: EOM Normal, Normal Conjuctivae/eyelid Ear/Nose/Mouth/Throat: Landmarks WNL Neck: Symmetric, trach midline Cardiovascular: Regular Rate (frequent extrasystoles) Respiratory: Lungs clear Psychology: Insight WNL, Orientation WNL, Memory WNL Laboratory Tests Test 01/02/25 03:54 01/02/25 19:55 01/03/25 03:31 Range/Units White Blood Count 9.1 8.6 4.8-10.8 K/uL Red Blood Count 3.37 3.34 4.00-5.50 MIL/uL Hemoglobin 11.2 10.8 12.0-16.0 g/dL Hematocrit 34.0 33.4 36-48 % Mean Corpuscular Volume 100.9 100.0 79-99 fL Mean Corpuscular Hemoglobin 33.2 32.3 27.0-33.0 pg Mean Corpuscular Hemoglobin Concent 32.9 32.3 32.0-36.0 g/dL Red Cell Distribution Width 13.3 13.3 11.0-15.5 % Platelet Count 190 187 130-400 K/uL Mean Platelet Volume 10.1 10.4 7.5-10.5 fL Nucleated Red Blood Cells 0.0 0.0 0.0-0.19 % Sodium Level 137 136 136-145 mmol/L Potassium Level 4.3 4.3 3.5-5.1 mmol/L Chloride Level 100 103 101-111 mmol/L Carbon Dioxide Level 26 25 21-32 mmol/L Blood Urea Nitrogen 40 39 7-18 mg/dL Creatinine 1.6 1.6 0.5-1.0 mg/dL Glomerular Filtration Rate Calc 33 33 >90 mL/min Random Glucose 122 122 70-105 mg/dL Total Calcium 9.4 9.2 8.5-10.1 mg/dL Magnesium Level 2.00 1.80-2.40 mg/dL Whole Blood Glucose 128 70-110 MG/DL Prothrombin Time 12.5 9.6-11.6 SEC Prothromb Time International Ratio 1.20 0.85-1.15 Activated Partial Thromboplast Time 26.8 26.3-35.5 SEC ASSESSMENT: 1. Premature ventricular contractions. 2. Heart failure with reduced ejection fraction. 3. Persistent atrial fibrillation. 4. Status post dual-chamber pacemaker insertion 11/09/2024. 5. Hypertension. 6. Obstructive sleep apnea. PLAN: 1. She was admitted secondary to acute congestive heart failure exacerbation in the setting of frequent PVCs. She has a newly discovered cardiomyopathy with an ejection fraction of 35-40%, in contrast seen ejection fraction of 55-60% in February 2024. She is pending left heart catheterization to assess for obstructive coronary artery disease. If the left heart catheterization shows nonobstructive coronary artery disease, suspect that the cardiomyopathy is PVC induced. 2. She is currently on amiodarone 200 mg twice daily which appears to be minimally effective at treating the PVCs. On the other hand, she has not had recurrent atrial fibrillation since undergoing cardioversion 11/17/2024. If it is determined that the cardiomyopathy is PVC induced, we would recommend more aggressive therapy which includes catheter ablation of the PVCs. We had a discussion with the patient and her son regarding this. However, we will await the findings of left heart catheterization prior to making final recommendations. 3. Continue amiodarone 200 mg twice daily, [id number] mg once daily, atorvastatin 80 mg once daily and metoprolol tartrate 50 mg 3 times daily. Will transition to metoprolol succinate prior to discharge. ISABEL QUIROS Jan 03, 2025 08:56
--- NOTE | 2025-01-03 09:32 | PN ---
[facility] CARDIOLOGY PROGRESS NOTE Date Patient Seen: Jan 03, 2025 Time of Visit: 09:17 Interval History: This is a 79-year-old white female with history of hypertension, hyperlipidemia, obesity, obstructive sleep apnea on CPAP, history of paroxysmal atrial f ibrillation with prior history of prior cardioversions, history of Watchman device about five years ago, recent history of cardioversion in 11/17/2024 presented to the ER for further evaluation of shortness of breath. On December 06, her amiodarone was decreased 200 mg bid to qd. At that visit, she was noted to have frequent PVCs and was started on verapamil. She has been following up with Dr Barboza most recently. Outpatient 2d echo 12/27/2024 demonstrated normal LV size for BSA 2.6 cm/m2, LVEF 35-40%, mild left atrial enlargement. She was admitted with acute on chronic HFrEF in the setting of frequent PVCs. She has been found to have a new decline in ejection fraction to an LVEF of 35-40% by 2D echo on current admission, compared to an ejection fraction of 55-60% which she had in February 2024. The patient's symptoms had been ongoing for 7-10 days accompanied by progressive shortness of breath, and dyspnea on exertion at 100 ft of ambulation. She has been managed with an IV Lasix diuresis and her creatinine has risen from 1.2-1.6 today. Pacemaker interrogation 01/02/2025 demonstrated underlying rhythm to be normal sinus rhythm with last episode of atrial fibrillation 11/17/2024. She is noted to have 19% a paced, 14% V paced but is having frequent PVCs. Metoprolol tartrate has been advanced to 50 mg p.o. t.i.d. and she has been restarted on amiodarone currently at [address] Crow Barboza has been consulted and their evaluation is in progress. Patient has been scheduled for left heart catheterization to exclude ischemia as the cause of her cardiomyopathy. The complications, risks, alternatives, and benefits have been discussed with the patient in detail and she understands and wishes to proceed. Further recommendations will follow depending on the results of her cardiac catheterization. Physical Examination: GENERAL: No acute distress. HEAD: Normal with no signs of head trauma. EYES: PERRLA, EOMI, conjunctiva and sclera normal. NECK: Supple without JVD. There is no tenderness, lymphadenopathy, or masses. No thyromegaly. Normal carotid upstrokes without bruits. LUNGS: Clear breath sounds bilaterally. No wheezes, or rhonchi. HEART: Normal rate and rhythm. Normal S1 and S2 without murmurs, gallop or rub. There is frequent extrasystole noted. VASC: Peripheral pulses +2 bilaterally. EXT: No clubbing, cyanosis or edema. NEURO: Awake, alert, and oriented x3. No focal neurological deficits noted. Laboratory: Hematology Labs: Test 01/03/25 03:31 Range/Units White Blood Count 8.6 4.8-10.8 K/uL Red Blood Count 3.34 L 4.00-5.50 MIL/uL Hemoglobin 10.8 L 12.0-16.0 g/dL Hematocrit 33.4 L 36-48 % Mean Corpuscular Volume 100.0 H 79-99 fL Mean Corpuscular Hemoglobin 32.3 27.0-33.0 pg Mean Corpuscular Hemoglobin Concent 32.3 32.0-36.0 g/dL Red Cell Distribution Width 13.3 11.0-15.5 % Platelet Count 187 130-400 K/uL Mean Platelet Volume 10.4 7.5-10.5 fL Nucleated Red Blood Cells 0.0 0.0-0.19 % Chemistry Labs: Test 01/03/25 03:31 01/02/25 19:55 01/02/25 03:54 Range/Units Sodium Level 136 136-145 mmol/L Potassium Level 4.3 3.5-5.1 mmol/L Chloride Level 103 101-111 mmol/L Carbon Dioxide Level 25 21-32 mmol/L Blood Urea Nitrogen 39 H 7-18 mg/dL Creatinine 1.6 H 0.5-1.0 mg/dL Glomerular Filtration Rate Calc 33 >90 mL/min Random Glucose 122 H 70-105 mg/dL Total Calcium 9.2 8.5-10.1 mg/dL Whole Blood Glucose 128 H 70-110 MG/DL Magnesium Level 2.00 1.80-2.40 mg/dL Coagulation Labs: Test 01/03/25 03:31 Range/Units Prothrombin Time 12.5 H 9.6-11.6 SEC Prothromb Time International Ratio 1.20 H 0.85-1.15 Activated Partial Thromboplast Time 26.8 26.3-35.5 SEC Diagnostics / Radiology: PATIENT: NATASHA BURDEN MR#: [id number] REPORT# : [id number] SERVICE [id number] PROCEDURE: VENOUS CAYETANO - US VENOUS DOPPLER BILATERAL Findings: The examination shows normal deep venous system. There is normal compressibility at all levels. There is no intraluminal clot. There is no occlusion. Adequate response is obtained on augmentation. Impression: No evidence of DVT. DICTATED BY: DANAY GHOSH MD DATE: 12/28/242 Impression and Plan: Paroxysmal atrial fibrillation with RVR s/p Watchman device and previous DCCVs and ablations: Status post DC cardioversion 11/17/2024 and initiation of amiodarone, with persistent sinus rhythm since cardioversion per pacemaker interrogation 01/03/2025: -continue present dose amiodarone 200 b.i.d. or as per EP Service recommendations -resume Eliquis anticoagulation after the procedure, unless a PVC ablation procedures planned Frequent PVCs: CHADS2 VASc score: 4 points. s/p Watchman implantation: -interrogation of her pacemaker 01/02/2025 demonstrated underlying rhythm to be normal sinus rhythm, 19% a paced, 14% V paced and prior 80/AF burden of 40%. Last atrial fibrillation episode 11/17/2024: -she has continued with frequent PVCs despite metoprolol tartrate 50 mg p.o. t.i.d. -amiodarone has been increased to 200 mg p.o. b.i.d. with plans to complete a 6 gram load then should transition to 200 mg daily (01/12/2025), or per Dr. Barboza recommendations -if no ischemia is identified the patient may require a PVC ablation procedure as the PVCs may be the cause of her decline in ejection fraction. -continue aspirin 81 mg p.o. 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 Risks, benefits and alternatives have been discussed included but not limited to 0.1% risk of SC, stroke or and she wishes to proceed. Further recommendations pending results of the cardiac catheterization -Begin GDMT with Entresto therapy, aldosterone antagonist therapy, and SGLT2 inhibitor SSS s/p DC PPM ([employer]) implantation done on 10/12/2024: -status post interrogation of pacemaker 01/02/2025 demonstrated normal device functioning, battery longevity is 9.5-9.9 years, program DDDR with base rate of 60, 19% a paced, 14% V paced with last atrial fibrillation 11/17/2024 Comorbidities: -Hypochromic anemia -YENNY/OHS -Obesity MANJU BAKER MD Jan 03, 2025 09:32
--- NOTE | 2025-01-03 09:49 | PN ---
[facility] PROGRESS NOTE Date of Service: Jan 03, 2025 Time of Service: 09:49 SUBJECTIVE: [79-year-old female admitted secondary to shortness of breaths. Patient was noted with atrial fibrillation with RVR. Patient also was noted with acute heart failure exacerbation. She continues with oxygen via nasal cannula. Right upper lung noted fine crackles. She is currently being diuresed at this time with Lasix 40 mg b.i.d. IV. Patient is also currently on amiodarone drip per protocol. We will continue to follow recommendations from director of flight operations. ] 12/30/24 79-year-old female admitted secondary to shortness of breath. Patient was noted with atrial fibrillation with RVR. Patient also was noted with acute heart failure exacerbation. Currently improving with further medication adjustments by cardiology/Patient and son prefer to go home at discharge/CT angio planned for Thursday12/31/24 Patient followed up today, she was seen by cardio today and interrogation of pacemaker recommended. Medications have been adjusted, she will be on BB metropolol 37.5 mg TID, amiodarone 200 mg bid, furosemide 20 mg bid. 01/01/25 patient was evaluated today in her room. She is doing a lot better, on room air now. She is tolerating current medication on beta april and antiarrhythmic, diuretics all pills. Patient will have a CTA tomorrow. Interrogation of pacemaker pending. 01/02/25 Patient evaluated in the room, tolerating room air so far. Her vitals reviewed, she remained jazmin in the 40's for 48 hours now. Her I&O reviewed, progressing well current weight is 68.9 kg, from 114 kg on admission. She is pending PPM interrogation and CTA cardiac angio, but since her kidney function going up, it was deferred for later time. 01/03/25 patient went for left heart catheterization. No acute events reported overnight. CT angio has been deferred. Today labs reviewed, BUN 39, creatinine 1.6. We will follow up with left heart catheterization results and recommendations from director of flight operations. REVIEW OF SYSTEMS CONSTITUTIONAL: Denies fevers, chills, or night sweats. No unintentional weight loss reported. NEUROLOGICAL: Denies headache, amaurosis fugax, motor weakness, sensory deficit, vertigo/spinning sensation, gait abnormalities, or tremors. ENT: No hearing loss, otalgia, otorrhea, rhinitis, rhinorrhea, hoarseness, or sore throat. CARDIOVASCULAR: Lower extremity swelling, dyspnea on exertion, PND, orthopnea PULMONARY: Denies any shortness of breath, cough, phlegm/sputum, hemoptysis, pleuritic chest pain. SLEEP: Denies morning headaches, daytime somnolence or napping. Denies difficulty falling asleep, staying asleep, waking from sleep. Denies knowledge of snoring. GASTROINTESTINAL: Denies any type of dysphagia to either liquids or solids. Denies nausea, vomiting, pyrosis, early satiety, abdominal pain, diarrhea, constipation, or changes in stool consistency or caliber. Denies coffee-ground emesis, hematemesis, hematochezia, or melanotic stools. GENITOURINARY: Denies frequency, urgency, nocturia, hematuria or incontinence (Storage/Irritative symptoms.) Low urinary stream, straining to void, urinary intermittency or hesitancy, splitting of the voiding stream, terminal dribbling. ENDOCRINOLOGIC: Denies polyuria, polydipsia, polyphagia or heat/cold intolerances. HEMATOLOGIC: Denies thrombophilia/previous clots, or coagulopathy/bleeding disorders. ONCOLOGIC: Denies personal history of malignancy. DERMATOLOGIC: Denies rashes or pruritus. PSYCHIATRIC: Denies any suicidal or homicidal ideation. Denies hallucinations. PHYSICAL EXAM GENERAL APPEARANCE: The patient is awake, alert, and oriented, in no acute cardiopulmonary distress. NEUROLOGICAL: Cranial nerves II-XII grossly intact. Motor is 5/5 in bilateral upper and lower extremities proximal to distal. No sensory deficits. HEENT: Face is symmetric. Pupils are equal and reactive. Extraocular movements are intact. NECK: Supple. No JVD. No thyromegaly. No submental, submandibular, pre- /postauricular, occipital or supraclavicular lymphadenopathy. CHEST: Normal chest expansion. No Telemetry. LUNGS: Absence of any rales, rhonchi or any wheezing. CARDIOVASCULAR: irregular. S1 and S2 normal. No appreciable rubs, murmurs or gallops. ABDOMEN: Soft, nontender, and nondistended. There is no rebound, voluntary guarding, or rigidity. : Deferred. No Mcmillan. EXTREMITIES: 2+ pitting edema of the bilateral lower extremities. No clubbing. Good capillary refill. SKIN: No skin breakdown. Vital Signs (last 8hr) Date Time Temp Pulse Resp B/P (MAP) Pulse Ox O2 Delivery O2 Flow Rate FiO2 01/03/25 07:31 97.5 84 16 124/54 95 Room Air 01/03/25 06:50 45 18 N/A Room Air 21 01/03/25 03:30 97.3 85 18 129/65 93 Room Air LABS: Laboratory: Test 01/03/25 03:31 01/02/25 19:55 01/02/25 03:54 Range/Units White Blood Count 8.6 4.8-10.8 K/uL Red Blood Count 3.34 L 4.00-5.50 MIL/uL Hemoglobin 10.8 L 12.0-16.0 g/dL Hematocrit 33.4 L 36-48 % Mean Corpuscular Volume 100.0 H 79-99 fL Mean Corpuscular Hemoglobin 32.3 27.0-33.0 pg Mean Corpuscular Hemoglobin Concent 32.3 32.0-36.0 g/dL Red Cell Distribution Width 13.3 11.0-15.5 % Platelet Count 187 130-400 K/uL Mean Platelet Volume 10.4 7.5-10.5 fL Nucleated Red Blood Cells 0.0 0.0-0.19 % Prothrombin Time 12.5 H 9.6-11.6 SEC Prothromb Time International Ratio 1.20 H 0.85-1.15 Activated Partial Thromboplast Time 26.8 26.3-35.5 SEC Sodium Level 136 136-145 mmol/L Potassium Level 4.3 3.5-5.1 mmol/L Chloride Level 103 101-111 mmol/L Carbon Dioxide Level 25 21-32 mmol/L Blood Urea Nitrogen 39 H 7-18 mg/dL Creatinine 1.6 H 0.5-1.0 mg/dL Glomerular Filtration Rate Calc 33 >90 mL/min Random Glucose 122 H 70-105 mg/dL Total Calcium 9.2 8.5-10.1 mg/dL Whole Blood Glucose 128 H 70-110 MG/DL Magnesium Level 2.00 1.80-2.40 mg/dL Current Medications Medications (Trade) Dose Ordered Sig/Ruddy Route PRN Reason Start Time Stop Time Status Last Admin Dose Admin Acetaminophen (TYLenol 325MG TAB) 650 mg Q6H PRN PO MILD PAIN (1-3) 12/28/24 14:00 01/27/25 13:59 Amiodarone HCl (pacERONE 200MG) 200 mg BID PO 12/30/24 09:00 01/29/25 08:59 01/02/25 22:28 200 MG Amiodarone HCl 540 mg/Dextrose 300 ml @ 16.667 mls/ hr PROTOCOL IV 12/28/24 14:00 12/29/24 11:01 DC 12/28/24 20:50 16.667 MLS/HR Amiodarone HCl 540 mg/Dextrose 300 ml @ 0 mls/hr PROTOCOL IV 12/29/24 11:00 01/02/25 10:40 DC 12/29/24 18:16 16.6 MLS/HR Aspirin (Aspirin 81mg Chew Tab) 81 mg DAILY PO 12/29/24 09:00 01/28/25 08:59 01/02/25 10:41 81 MG Atorvastatin Calcium (LIPItor 40MG) 80 mg HS PO 12/28/24 21:00 01/27/25 20:59 01/02/25 22:27 80 MG Enoxaparin Sodium (Lovenox) 40 mg DAILY SQ 12/29/24 09:00 01/28/25 08:59 01/02/25 10:45 40 MG Furosemide (LASix 20MG VIAL) 20 mg Q8H IV 12/28/24 14:00 12/29/24 09:26 DC 12/29/24 07:08 20 MG Furosemide (LASix 20MG VIAL) 40 mg BID IV 12/29/24 09:30 12/29/24 09:30 DC Furosemide (LASix 40MG TAB) 40 mg BID@09,17 PO 12/31/24 17:00 01/02/25 10:25 DC 01/01/25 17:09 40 MG Furosemide (LASix 40MG VIAL) 40 mg BID IV 12/29/24 21:00 12/30/24 07:50 DC 12/29/24 20:49 40 MG Furosemide (LASix 40MG VIAL) 40 mg Q8H5 IV 12/30/24 08:00 12/31/24 14:32 DC 12/31/24 12:32 40 MG Home Med (Home Medication) Cholecalciferol (Vitamin D3) 10 MCG DAILY PO 12/29/24 09:00 01/28/25 08:59 Home Med (Home Medication) Magnesium 250 MG HS PO 12/28/24 21:00 01/01/25 15:38 DC Home Med (Home Medication) Verapamil HCl (Verapa... HS PO 12/28/24 21:00 12/31/24 14:32 DC Lisinopril (Prinivil 40mg) 40 mg DAILY PO 12/29/24 09:00 12/30/24 07:52 DC 12/29/24 09:55 40 MG Magnesium Oxide (Mag-Ox) 400 mg PM PO 01/01/25 21:00 01/31/25 20:59 01/02/25 22:28 400 MG Magnesium Sulfate 50 ml @ 0 mls/hr PROTOCOL IV 12/28/24 14:00 01/27/25 13:59 Metoprolol Tartrate (loprESSOR) 25 mg TID PO 12/30/24 08:00 12/31/24 14:32 DC 12/31/24 09:07 25 MG Metoprolol Tartrate (loprESSOR) 37.5 mg TID PO 12/31/24 21:00 01/01/25 14:39 DC 01/01/25 09:22 37.5 MG Metoprolol Tartrate (loprESSOR) 50 mg TID PO 12/30/24 08:00 12/30/24 07:53 DC Metoprolol Tartrate (loprESSOR) 50 mg TID PO 01/01/25 15:00 01/02/25 10:40 DC 01/01/25 20:40 50 MG Metoprolol Tartrate (loprESSOR) 50 mg TID PO 01/02/25 14:00 01/31/25 14:59 01/02/25 22:28 50 MG Ondansetron HCl (zoFRAN 4MG INJ) 4 mg Q6H PRN IVP NAUSEA/VOMITING 12/28/24 14:00 01/27/25 13:59 Pantoprazole Sodium (PROTonix 40MG TAB) 40 mg DAILY PO 12/29/24 09:00 01/28/25 08:59 01/02/25 10:41 40 MG Potassium Chloride 100 ml @ 100 mls/hr AD PRN IV POTASSIUM PROTOCOL 12/28/24 14:00 01/27/25 13:59 Potassium Chloride (K-Dur/Klor-Con 20meq) 20 meq AD PRN PO POTASSIUM PROTOCOL 12/28/24 14:00 01/27/25 13:59 Potassium Chloride (K-Dur/Klor-Con 20meq) 20 meq BID PO 12/29/24 21:00 01/28/25 20:59 01/02/25 22:28 20 MEQ Potassium Chloride (KCl 10% Elixir 20meq/15ml) 20 meq AD PRN PO POTASSIUM PROTOCOL 12/28/24 14:00 01/27/25 13:59 Vitamin B Complex (Vitamin B-12) 1,000 mcg DAILY PO 12/29/24 09:00 01/28/25 08:59 01/02/25 10:41 1,000 MCG DIAGNOSTICS / RADIOLOGY: [ ] ASSESSMENT: Acute heart failure exacerbation, pending 2D echocardiogram to assess for systolic/diastolic function, POA Acute hypoxemic respiratory failure, POA Paroxysmal atrial fibrillation with ventricular bigeminy, POA History of Watchman device placement about five years ago, POA History of prior cardioversions and cardiac ablation for atrial fibrillation, POA Hypertension, POA Hyperlipidemia, POA Obstructive sleep apnea maintained on outpatient CPAP, POA Obesity, POA PLAN: C/w cardiac telemetry floor Continue with supplemental O2 therapy to maintain oxygen saturation greater than 92% Continue with Amiodarone 200 mg po BID, Lopressor adjusted to 50 mg TID, we appreciate rec's from cardio -patient went for [facility] in am by Dr. Uribe -Per cardio dc Furosemide 40 mg BID We will maintain K greater than four and magnesium greater than two We will keep patient on telemetry to assess PVC burden 2decho reviewed Continue with rest of the home medications DVT prophylaxis with Lovenox 40 mg subcutaneous daily GI prophylaxis with Protonix Patient to resume CPAP nightly for management of obstructive sleep apnea All labs will be repeated in the morning Case was seen and examined with Dr. Mays, above plan was formulated ATTESTATION BY PHYSICIAN I have seen and examined the patient. I reviewed the documentation, medical dec ision making, and treatment plan as noted by the mid-level provider above. I agree with the findings and plan of care. Carmencita Mays MD, [facility] Jan 03, 2025 09:49
[2025-01-03] MEDS ORDERED: HEParin-NS 1,000 UNIT/500 ML 500 ML IV ONE (11:45)
[2025-01-03] MEDS ORDERED: HEParin 10,000 UNIT/10ML (1,000 UNIT/ML) VIAL ONE (11:45)
[2025-01-03] MEDS ORDERED: IOHEXOL 350 MG/ML 100ML INFUS..BTL IV ONE (11:45)
[2025-01-03] MEDS ORDERED: LIDOCAINE HCL 400MG/20ML VIAL ONE (11:45)
[2025-01-03] MEDS ORDERED: NITROGLYCERIN 50MG VIAL ONE (11:46)
[2025-01-03] MEDS ORDERED: FENTanyl CITRate PF 50 MCG/1 ML 2ML VIAL ONE (12:01)
[2025-01-03] MEDS ORDERED: MIDAZOLAM HCL 1 MG/ML 2ML VIAL ONE (12:01)
--- NOTE | 2025-01-03 13:28 | PRN ---
DATE OF PROCEDURE: 01/03/2025 PROCEDURE PERFORMED: Left heart catheterization, left and right selective coronary angiogram, right common femoral angiogram, Perclose suture closure of the right common femoral artery, and conscious sedation SIZE CHANGER: Man Baker MD, [facility] INDICATION: Cardiomyopathy, rule out ischemic heart disease PROCEDURE NOTE: After informed consent was obtained the patient was prepped and draped in the usual sterile fashion. A 6 Danish arterial sheath was inserted in the right femoral artery using a micropuncture technique with ultrasound guidance with a front wall, first pass puncture. This was performed after fluoroscopic identification of bony landmarks to facilitate a more accurate puncture of the right common femoral artery. The arterial sheath was aspirated and flushed. A 6 Danish pigtail catheter was then advanced over a J-tipped guidewire to the ascending aorta and was prolapsed into the left ventricle. The catheter was aspirated and flushed and pressure measurements were obtained. No left ventriculogram was performed due to the presence of chronic renal insufficiency. A pullback procedure was then performed, and this catheter was removed over a J-tipped guidewire. A 6F JL-4 was then advanced to the ascending aorta over a J-tipped guidewire, was aspirated and flushed, and was used for selective left coronary angiograms in multiple obliquities. A JR-4 was advanced in a similar fashion to the ascending aorta over a J-tipped guidewire and was used for selective right coronary angiograms in multiple obliquities with findings as outlined below. A right common femoral angiogram was performed to assess suitability for Perclose suture closure and the Perclose device was deployed in standard fashion. Perclose suture closure was successful without bleeding or hematoma. The patient tolerated the procedure well and was returned to the holding area in stable condition. FINDINGS: LEFT HEART HEMODYNAMICS: The patient's LVEDP was 19 mm of mercury. There was no aortic valve gradient on pullback. LEFT VENTRICULOGRAM: No left ventriculogram was performed due to the presence of chronic renal insufficiency. CORONARY ANGIOGRAM: LEFT MAIN: The left main coronary artery was large and normal. LEFT ANTERIOR DESCENDING: The left anterior descending and diagonal branches were large and normal. LEFT CIRCUMFLEX: The left circumflex was codominant, large, and normal as were the obtuse marginal branches and the posterolateral branch of the distal left circumflex. RAMUS INTERMEDIATE BRANCH: There was no ramus intermediate branch. RIGHT CORONARY ARTERY: The right coronary artery was codominant and normal. The PDA was normal and a mikey from the acute marginal branch. IMPRESSION: Nonischemic cardiomyopathy, likely due to frequent PVCs. Moderate LV dysfunction by 2D echo 12/27/2024 with LVEF of 35-40%. Normal coronary arteries. RECOMMENDATION: Proceed with plans for PVC ablation procedure. COMPLICATIONS OF PROCEDURE: None, the patient tolerated the procedure well and was returned to her room in stable condition. HEMOSTASIS: Perclose suture closure was successful without bleeding or hematoma. ESTIMATED BLOOD LOSS: Less than 10 mL. CONTRAST TOTAL: 50 mL. MAN BAKER MD Jan 03, 2025 13:27
[2025-01-03] MEDS: 0.9%NACL 1000ML 1,000 ML IV SCH (13:54)
[2025-01-03] MEDS: acetaMINOPHEN 325 MG TAB PO PRN (13:57)
[2025-01-03] MEDS ORDERED: LORazepam 2 MG/ML 1 ML VIAL IVP PRN (16:30)
[2025-01-03] MEDS: ALPRAZolam 0.25 MG TABLET PO PRN (17:07)
[2025-01-03] MEDS ORDERED: 0.9%NACL 1000ML 1,000 ML IV SCH (19:30)
[2025-01-04] VITALS (7 sets, daily range): BP systolic 102–118; BP diastolic 45–77; PULSE 44–87; RESP 18–20; TEMP 97.5–98; O2SAT 95–99
[2025-01-04 04:02] LABS: CREATININE 1.1 mg/dL (0.5-1.0); POTASSIUM 4.5 mmol/L (3.5-5.1)
--- NOTE | 2025-01-04 10:18 | PN ---
[facility] CARDIOLOGY PROGRESS NOTE Date Patient Seen: Jan 04, 2025 Time of Visit: 10:05 Interval History: This is a 79-year-old white female with history of hypertension, hyperlipidemia, obesity, obstructive sleep apnea on CPAP, history of paroxysmal atrial f ibrillation with prior history of prior cardioversions, history of Watchman device about five years ago, recent history of cardioversion in 11/17/2024 presented to the ER for further evaluation of shortness of breath. On December 06, her amiodarone was decreased 200 mg bid to qd. At that visit, she was noted to have frequent PVCs and was started on verapamil. She has been following up with Dr Barboza most recently. Outpatient 2d echo 12/27/2024 demonstrated normal LV size for BSA 2.6 cm/m2, LVEF 35-40%, mild left atrial enlargement. She was admitted with acute on chronic HFrEF in the setting of frequent PVCs. She has been found to have a new decline in ejection fraction to an LVEF of 35-40% by 2D echo on current admission, compared to an ejection fraction of 55-60% which she had in February 2024. The patient was also felt to have acute on chronic systolic congestive heart failure and was initiated on an IV Lasix diuresis. Her creatinine mikey to 1.6 and her Lasix was held. Pacemaker interrogation 01/02/2025 demonstrated underlying rhythm to be normal sinus rhythm with last episode of atrial fibrillation 11/17/2024. She is noted to have 19% a paced, 14% V paced but is having frequent PVCs. She underwent a left heart catheterization on 01/03/2025 demonstrating normal coronary arteries. She has been seen in follow-up by Dr. Crow Barboza and is scheduled for a PVC ablation procedure on 01/05/2025. She offers no orthopnea or PND overnight. Physical Examination: GENERAL: No acute distress. HEAD: Normal with no signs of head trauma. EYES: PERRLA, EOMI, conjunctiva and sclera normal. NECK: Supple without JVD. There is no tenderness, lymphadenopathy, or masses. No thyromegaly. Normal carotid upstrokes without bruits. LUNGS: Clear breath sounds bilaterally. No wheezes, or rhonchi. HEART: Normal rate and rhythm. Normal S1 and S2 without murmurs, gallop or rub. There is frequent extrasystole noted. VASC: Peripheral pulses +2 bilaterally. EXT: No clubbing, cyanosis or edema. The right groin is soft, free of hematoma. NEURO: Awake, alert, and oriented x3. No focal neurological deficits noted. Laboratory: Hematology Labs: Test 01/03/25 03:31 Range/Units White Blood Count 8.6 4.8-10.8 K/uL Red Blood Count 3.34 L 4.00-5.50 MIL/uL Hemoglobin 10.8 L 12.0-16.0 g/dL Hematocrit 33.4 L 36-48 % Mean Corpuscular Volume 100.0 H 79-99 fL Mean Corpuscular Hemoglobin 32.3 27.0-33.0 pg Mean Corpuscular Hemoglobin Concent 32.3 32.0-36.0 g/dL Red Cell Distribution Width 13.3 11.0-15.5 % Platelet Count 187 130-400 K/uL Mean Platelet Volume 10.4 7.5-10.5 fL Nucleated Red Blood Cells 0.0 0.0-0.19 % Chemistry Labs: Test 01/04/25 03:28 01/02/25 19:55 Range/Units Sodium Level 137 136-145 mmol/L Potassium Level 4.5 3.5-5.1 mmol/L Chloride Level 105 101-111 mmol/L Carbon Dioxide Level 24 21-32 mmol/L Blood Urea Nitrogen 30 H 7-18 mg/dL Creatinine 1.1 H 0.5-1.0 mg/dL Glomerular Filtration Rate Calc 51 >90 mL/min Random Glucose 139 H 70-105 mg/dL Total Calcium 9.1 8.5-10.1 mg/dL Whole Blood Glucose 128 H 70-110 MG/DL Coagulation Labs: Test 01/03/25 03:31 Range/Units Prothrombin Time 12.5 H 9.6-11.6 SEC Prothromb Time International Ratio 1.20 H 0.85-1.15 Activated Partial Thromboplast Time 26.8 26.3-35.5 SEC Diagnostics / Radiology: PATIENT: NATASHA BURDEN MR#: [id number] REPORT# : [id number] SERVICE [id number] PROCEDURE: VENOUS CAYETANO - US VENOUS DOPPLER BILATERAL Findings: The examination shows normal deep venous system. There is normal compressibility at all levels. There is no intraluminal clot. There is no occlusion. Adequate response is obtained on augmentation. Impression: No evidence of DVT. DICTATED BY: DANAY GHOSH MD DATE: 12/28/24 [id number] Impression and Plan: Paroxysmal atrial fibrillation with RVR s/p Watchman device and previous DCCVs and ablations: Status post DC cardioversion 11/17/2024 and initiation of amiodarone, with persistent sinus rhythm since cardioversion per pacemaker interrogation 01/03/2025: -resume Eliquis anticoagulation after the PVC ablation procedure Frequent PVCs: CHADS2 VASc score: 4 points. s/p Watchman implantation: -interrogation of her pacemaker 01/02/2025 demonstrated underlying rhythm to be normal sinus rhythm, 19% a paced, 14% V paced and prior 80/AF burden of 40%. Last atrial fibrillation episode 11/17/2024: -she has continued with frequent PVCs despite metoprolol tartrate 50 mg p.o. t.i.d. -continue aspirin 81 mg p.o. daily -plan for PVC ablation procedure 01/05/[address] Barboza and amiodarone has been held. Defer management to Dr. Barboza HFrEF (LVEF: 35-40% by echo done 12/27/2024), possibly PVC related: Normal coronary arteries by cardiac catheterization 01/03/2025: -resume furosemide 20 mg p.o. daily -Begin GDMT with Entresto therapy, given marginal blood pressures, we will begin 24/26 mg, half a tablet p.o. b.i.d. -begin spironolactone 25 mg p.o. daily -add SGLT2 inhibitor, Farxiga 10 mg p.o. daily on discharge SSS s/p DC PPM ([employer]) implantation done on 10/12/2024: -status post interrogation of pacemaker 01/02/2025 demonstrated normal device functioning, battery longevity is 9.5-9.9 years, program DDDR with base rate of 60, 19% a paced, 14% V paced with last atrial fibrillation 11/17/2024 Comorbidities: -Hypochromic anemia -YENNY/OHS -Obesity PHYSICIAN ATTESTATION OF PHYSICIAN MANUFACTURING TEAM LEADER DOCUMENTATION: I attest that I was physically present for the sanchez portions of the service and evaluated the patient with the Physician Pantograph I Engraver, and I reviewed and discussed the case with the Physician Pantograph I Engraver and made modifications to the Physician Pantograph I Engraver's findings and plans of care as documented above MAXINE BERUMEN Jan 04, 2025 10:18 MANJU BAKER MD Jan 04, 2025 10:22
[2025-01-04] MEDS: SACUBITRIL/VALSARTAN 1 EACH TABLET PO SCH (10:46)
[2025-01-04] MEDS: SPIRONOLACTONE 25 MG TAB PO SCH (10:46)
--- NOTE | 2025-01-04 12:03 | PN ---
[facility] PROGRESS NOTE Date of Service: Jan 04, 2025 Time of Service: 11:49 SUBJECTIVE: [79-year-old female admitted secondary to shortness of breaths. Patient was noted with atrial fibrillation with RVR. Patient also was noted with acute heart failure exacerbation. She continues with oxygen via nasal cannula. Right upper lung noted fine crackles. She is currently being diuresed at this time with Lasix 40 mg b.i.d. IV. Patient is also currently on amiodarone drip per protocol. We will continue to follow recommendations from health services administrator. ] 12/30/24 79-year-old female admitted secondary to shortness of breath. Patient was noted with atrial fibrillation with RVR. Patient also was noted with acute heart failure exacerbation. Currently improving with further medication adjustments by cardiology/Patient and son prefer to go home at discharge/CT angio planned for Thursday12/31/24 Patient followed up today, she was seen by cardio today and interrogation of pacemaker recommended. Medications have been adjusted, she will be on BB metropolol 37.5 mg TID, amiodarone 200 mg bid, furosemide 20 mg bid. 01/01/25 patient was evaluated today in her room. She is doing a lot better, on room air now. She is tolerating current medication on beta april and antiarrhythmic, diuretics all pills. Patient will have a CTA tomorrow. Interrogation of pacemaker pending. 01/02/25 Patient evaluated in the room, tolerating room air so far. Her vitals reviewed, she remained jazmin in the 40's for 48 hours now. Her I&O reviewed, progressing well current weight is 68.9 kg, from 114 kg on admission. She is pending PPM interrogation and CTA cardiac angio, but since her kidney function going up, it was deferred for later time. 01/03/25 patient went for left heart catheterization. No acute events reported overnight. CT angio has been deferred. Today labs reviewed, BUN 39, creatinine 1.6. We will follow up with left heart catheterization results and recommendations from health services administrator. 01/04/25 this patient was evaluated this morning. 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 Patient has ablation scheduled tomorrow. Labs reviewed, creatinine is improving. Patient had anxiety attack post left heart catheterization, Xanax 0.25 mg REVIEW OF SYSTEMS CONSTITUTIONAL: Denies fevers, chills, or night sweats. No unintentional weight loss reported. NEUROLOGICAL: Denies headache, amaurosis fugax, motor weakness, sensory deficit, vertigo/spinning sensation, gait abnormalities, or tremors. ENT: No hearing loss, otalgia, otorrhea, rhinitis, rhinorrhea, hoarseness, or sore throat. CARDIOVASCULAR: Lower extremity swelling, dyspnea on exertion, PND, orthopnea PULMONARY: Denies any shortness of breath, cough, phlegm/sputum, hemoptysis, pleuritic chest pain. SLEEP: Denies morning headaches, daytime somnolence or napping. Denies difficulty falling asleep, staying asleep, waking from sleep. Denies knowledge of snoring. GASTROINTESTINAL: Denies any type of dysphagia to either liquids or solids. Denies nausea, vomiting, pyrosis, early satiety, abdominal pain, diarrhea, constipation, or changes in stool consistency or caliber. Denies coffee-ground emesis, hematemesis, hematochezia, or melanotic stools. GENITOURINARY: Denies frequency, urgency, nocturia, hematuria or incontinence (Storage/Irritative symptoms.) Low urinary stream, straining to void, urinary intermittency or hesitancy, splitting of the voiding stream, terminal dribbling. ENDOCRINOLOGIC: Denies polyuria, polydipsia, polyphagia or heat/cold intolerances. HEMATOLOGIC: Denies thrombophilia/previous clots, or coagulopathy/bleeding disorders. ONCOLOGIC: Denies personal history of malignancy. DERMATOLOGIC: Denies rashes or pruritus. PSYCHIATRIC: Denies any suicidal or homicidal ideation. Denies hallucinations. PHYSICAL EXAM GENERAL APPEARANCE: The patient is awake, alert, and oriented, in no acute cardiopulmonary distress. NEUROLOGICAL: Cranial nerves II-XII grossly intact. Motor is 5/5 in bilateral upper and lower extremities proximal to distal. No sensory deficits. HEENT: Face is symmetric. Pupils are equal and reactive. Extraocular movements are intact. NECK: Supple. No JVD. No thyromegaly. No submental, submandibular, pre- /postauricular, occipital or supraclavicular lymphadenopathy. CHEST: Normal chest expansion. No Telemetry. LUNGS: Absence of any rales, rhonchi or any wheezing. CARDIOVASCULAR: irregular. S1 and S2 normal. No appreciable rubs, murmurs or gallops. ABDOMEN: Soft, nontender, and nondistended. There is no rebound, voluntary guarding, or rigidity. : Deferred. No Mcmillan. EXTREMITIES: 2+ pitting edema of the bilateral lower extremities. No clubbing. Good capillary refill. SKIN: No skin breakdown. Vital Signs (last 8hr) Date Time Temp Pulse Resp B/P (MAP) Pulse Ox O2 Delivery O2 Flow Rate FiO2 01/04/25 08:00 99 Room Air* 0 21 01/04/25 08:00 97.5 87 19 118/51 95 Room Air 01/04/25 07:19 44 18 N/A Room Air 21 LABS: Laboratory: Test 01/04/25 03:28 01/03/25 03:31 01/02/25 19:55 Range/Units Sodium Level 137 136-145 mmol/L Potassium Level 4.5 3.5-5.1 mmol/L Chloride Level 105 101-111 mmol/L Carbon Dioxide Level 24 21-32 mmol/L Blood Urea Nitrogen 30 H 7-18 mg/dL Creatinine 1.1 H 0.5-1.0 mg/dL Glomerular Filtration Rate Calc 51 >90 mL/min Random Glucose 139 H 70-105 mg/dL Total Calcium 9.1 8.5-10.1 mg/dL White Blood Count 8.6 4.8-10.8 K/uL Red Blood Count 3.34 L 4.00-5.50 MIL/uL Hemoglobin 10.8 L 12.0-16.0 g/dL Hematocrit 33.4 L 36-48 % Mean Corpuscular Volume 100.0 H 79-99 fL Mean Corpuscular Hemoglobin 32.3 27.0-33.0 pg Mean Corpuscular Hemoglobin Concent 32.3 32.0-36.0 g/dL Red Cell Distribution Width 13.3 11.0-15.5 % Platelet Count 187 130-400 K/uL Mean Platelet Volume 10.4 7.5-10.5 fL Nucleated Red Blood Cells 0.0 0.0-0.19 % Prothrombin Time 12.5 H 9.6-11.6 SEC Prothromb Time International Ratio 1.20 H 0.85-1.15 Activated Partial Thromboplast Time 26.8 26.3-35.5 SEC Whole Blood Glucose 128 H 70-110 MG/DL Current Medications Medications (Trade) Dose Ordered Sig/Ruddy Route PRN Reason Start Time Stop Time Status Last Admin Dose Admin Acetaminophen (TYLenol 325MG TAB) 650 mg Q6H PRN PO MILD PAIN (1-3) 12/28/24 14:00 01/27/25 13:59 01/03/25 13:57 650 MG Alprazolam (XANax 0.25MG) 0.25 mg TID PRN PO ANXIETY/AGITATION 01/03/25 17:00 02/02/25 16:59 01/03/25 17:07 0.25 MG Amiodarone HCl (pacERONE 200MG) 200 mg BID PO 12/30/24 09:00 01/03/25 19:32 DC 01/02/25 22:28 200 MG Amiodarone HCl 540 mg/Dextrose 300 ml @ 16.667 mls/ hr PROTOCOL IV 12/28/24 14:00 12/29/24 11:01 DC 12/28/24 20:50 16.667 MLS/HR Amiodarone HCl 540 mg/Dextrose 300 ml @ 0 mls/hr PROTOCOL IV 12/29/24 11:00 01/02/25 10:40 DC 12/29/24 18:16 16.6 MLS/HR Aspirin (Aspirin 81mg Chew Tab) 81 mg DAILY PO 12/29/24 09:00 01/28/25 08:59 01/04/25 10:42 81 MG Atorvastatin Calcium (LIPItor 40MG) 80 mg HS PO 12/28/24 21:00 01/27/25 20:59 01/03/25 20:31 80 MG Enoxaparin Sodium (Lovenox) 40 mg DAILY SQ 12/29/24 09:00 01/28/25 08:59 01/04/25 10:46 40 MG Furosemide (LASix 20MG TAB) 20 mg DAILY PO 01/05/25 09:00 02/04/25 08:59 Furosemide (LASix 20MG VIAL) 20 mg Q8H IV 12/28/24 14:00 12/29/24 09:26 DC 12/29/24 07:08 20 MG Furosemide (LASix 20MG VIAL) 40 mg BID IV 12/29/24 09:30 12/29/24 09:30 DC Furosemide (LASix 40MG TAB) 40 mg BID@09,17 PO 12/31/24 17:00 01/02/25 10:25 DC 01/01/25 17:09 40 MG Furosemide (LASix 40MG VIAL) 40 mg BID IV 12/29/24 21:00 12/30/24 07:50 DC 12/29/24 20:49 40 MG Furosemide (LASix 40MG VIAL) 40 mg Q8H5 IV 12/30/24 08:00 12/31/24 14:32 DC 12/31/24 12:32 40 MG Home Med (Home Medication) Cholecalciferol (Vitamin D3) 10 MCG DAILY PO 12/29/24 09:00 01/28/25 08:59 01/04/25 10:54 1 EACH Home Med (Home Medication) Magnesium 250 MG HS PO 12/28/24 21:00 01/01/25 15:38 DC Home Med (Home Medication) Verapamil HCl (Verapa... HS PO 12/28/24 21:00 12/31/24 14:32 DC Lisinopril (Prinivil 40mg) 40 mg DAILY PO 12/29/24 09:00 12/30/24 07:52 DC 12/29/24 09:55 40 MG Lorazepam (AtiVAN) 0.5 mg Q4H PRN IVP ANXIETY/AGITATION 01/03/25 16:30 01/03/25 16:23 DC Magnesium Oxide (Mag-Ox) 400 mg PM PO 01/01/25 21:00 01/31/25 20:59 01/03/25 20:31 400 MG Magnesium Sulfate 50 ml @ 0 mls/hr PROTOCOL IV 12/28/24 14:00 01/27/25 13:59 Metoprolol Tartrate (loprESSOR) 25 mg TID PO 12/30/24 08:00 12/31/24 14:32 DC 12/31/24 09:07 25 MG Metoprolol Tartrate (loprESSOR) 37.5 mg TID PO 12/31/24 21:00 01/01/25 14:39 DC 01/01/25 09:22 37.5 MG Metoprolol Tartrate (loprESSOR) 50 mg TID PO 12/30/24 08:00 12/30/24 07:53 DC Metoprolol Tartrate (loprESSOR) 50 mg TID PO 01/01/25 15:00 01/02/25 10:40 DC 01/01/25 20:40 50 MG Metoprolol Tartrate (loprESSOR) 50 mg TID PO 01/02/25 14:00 01/31/25 14:59 01/04/25 10:42 50 MG Ondansetron HCl (zoFRAN 4MG INJ) 4 mg Q6H PRN IVP NAUSEA/VOMITING 12/28/24 14:00 01/03/25 19:32 DC Pantoprazole Sodium (PROTonix 40MG TAB) 40 mg DAILY PO 12/29/24 09:00 01/28/25 08:59 01/04/25 10:41 40 MG Potassium Chloride 100 ml @ 100 mls/hr AD PRN IV POTASSIUM PROTOCOL 12/28/24 14:00 01/27/25 13:59 Potassium Chloride (K-Dur/Klor-Con 20meq) 20 meq AD PRN PO POTASSIUM PROTOCOL 12/28/24 14:00 01/27/25 13:59 Potassium Chloride (K-Dur/Klor-Con 20meq) 20 meq BID PO 12/29/24 21:00 01/28/25 20:59 01/04/25 10:42 20 MEQ Potassium Chloride (KCl 10% Elixir 20meq/15ml) 20 meq AD PRN PO POTASSIUM PROTOCOL 12/28/24 14:00 01/27/25 13:59 Sacubitril/ Valsartan (Entresto 24 Mg-26 Mg Tablet) 0.5 each BID PO 01/04/25 10:30 02/03/25 10:29 01/04/25 10:46 0.5 EACH Sodium Chloride 1,000 ml @ 0 mls/hr Q0M IV 01/03/25 19:30 02/02/25 19:29 Sodium Chloride 1,000 ml @ 100 mls/hr Q10H IV 01/03/25 13:30 01/03/25 23:29 DC 01/03/25 13:54 100 MLS/HR Spironolactone (Aldactone 25mg) 25 mg DAILY PO 01/04/25 10:30 02/03/25 10:29 01/04/25 10:46 25 MG Vitamin B Complex (Vitamin B-12) 1,000 mcg DAILY PO 12/29/24 09:00 01/28/25 08:59 01/04/25 10:42 1,000 MCG DIAGNOSTICS / RADIOLOGY: [ ] ASSESSMENT: Acute heart failure exacerbation, pending 2D echocardiogram to assess for systolic/diastolic function, POA Acute hypoxemic respiratory failure, POA Paroxysmal atrial fibrillation with ventricular bigeminy, POA History of Watchman device placement about five years ago, POA History of prior cardioversions and cardiac ablation for atrial fibrillation, POA Hypertension, POA Hyperlipidemia, POA Obstructive sleep apnea maintained on outpatient CPAP, POA Obesity, POA PLAN: C/w cardiac telemetry floor Continue with supplemental O2 therapy to maintain oxygen saturation greater than 92% Continue with Amiodarone 200 mg po BID, Lopressor adjusted to 50 mg TID, we appreciate rec's from cardio -patient went for [facility] in am by Dr. Uribe showed ischemic cardiomyopathy due to frequent PVCs -patient will continue with Lasix 20 mg p.o. daily, [id number] mg daily -patient is for ablation tomorrow We will maintain K greater than four and magnesium greater than two We will keep patient on telemetry to assess PVC burden 2decho reviewed Continue with rest of the home medications DVT prophylaxis with Lovenox 40 mg subcutaneous daily GI prophylaxis with Protonix Patient to resume CPAP nightly for management of obstructive sleep apnea All labs will be repeated in the morning Case was seen and examined with Dr. Mays, above plan was formulated ATTESTATION BY PHYSICIAN I have seen and examined the patient. I reviewed the documentation, medical decision making, and treatment plan as noted by the mid-level provider above. I agree with the findings and plan of care. Carmencita Mays MD, [facility] Jan 04, 2025 12:03
[2025-01-05] VITALS (29 sets, daily range): BP systolic 90–131; BP diastolic 36–60; PULSE 41–103; RESP 12–20; TEMP 97.5–98.5; O2SAT 95–99
[2025-01-05 04:41] LABS: HEMATOCRIT 33.1 % (36-48); MEAN CORPUSCULAR HEMOGLOBIN 33.6 pg (27.0-33.0); MEAN CORPUSCULAR HGB CONC 33.2 g/dL (32.0-36.0); MEAN CORPUSCULAR VOLUME 101.2 fL (79-99); RED BLOOD CELL COUNT(AUTO) 3.27 MIL/uL (4.00-5.50); RED CELL DISTRIBUTION WIDTH 13.2 % (11.0-15.5); WHITE BLOOD COUNT (AUTO) 8.4 K/uL (4.8-10.8)
[2025-01-05 04:58] LABS: CREATININE 1.2 mg/dL (0.5-1.0); MAGNESIUM 2.2 mg/dL (1.80-2.40); POTASSIUM 4.4 mmol/L (3.5-5.1)
[2025-01-05] MEDS ORDERED: ondanSETRON 4MG INJ ONE (06:58)
[2025-01-05] MEDS ORDERED: MIDAZOLAM HCL 1 MG/ML 2ML VIAL ONE (06:58)
[2025-01-05] MEDS ORDERED: phenylEPHRINE HCL 10 MG/ML 1ML VIAL IV ONE (06:58)
[2025-01-05] MEDS ORDERED: rocuRONium bROMide 10MG/1ML 5ML VL ONE ×2 (06:58→11:32)
[2025-01-05] MEDS ORDERED: FENTanyl CITRate PF 50 MCG/1 ML 2ML VIAL ONE ×2 (06:59→07:28)
[2025-01-05] MEDS ORDERED: proPOFol 10 MG/ML 20ML VIAL IV ONE (06:59)
[2025-01-05] MEDS ORDERED: LIDOCAINE HCL 400MG/20ML VIAL ONE ×2 (07:21→07:52)
[2025-01-05] MEDS ORDERED: HEParin 10,000 UNIT/10ML (1,000 UNIT/ML) VIAL ONE ×3 (07:22→09:56)
[2025-01-05] MEDS ORDERED: HEParin-NS 1,000 UNIT/500 ML 500 ML IV ONE ×2 (07:22)
[2025-01-05] MEDS ORDERED: SUCCINYLCHOLINE CHLORIDE 20 MG/ML 10 ML VIAL ONE (07:28)
[2025-01-05] MEDS ORDERED: SODIUM BICARB 50MEQ 50ML VIAL 50 ML ONE (07:53)
[2025-01-05] MEDS ORDERED: ISOPROTERENOL HCL 0.2 MG/ML AMP/VIAL/BAG ONE (10:59)
[2025-01-05] MEDS ORDERED: PROTamine SULFate 10 MG/ML 25ML VIAL IV ONE (11:41)
[2025-01-05] MEDS: SUGAMMADEX SODIUM 200 MG/2 ML VIAL IV ONE (13:56)
[2025-01-05] MEDS: furoSEMIDE 20 MG TABLET PO SCH (14:27)
--- NOTE | 2025-01-05 16:17 | PN ---
[facility] PROGRESS NOTE Date of Service: January 05, 2025 Time of Service: 16:16 SUBJECTIVE: [79-year-old female admitted secondary to shortness of breaths. Patient was noted with atrial fibrillation with RVR. Patient also was noted with acute heart failure exacerbation. She continues with oxygen via nasal cannula. Right upper lung noted fine crackles. She is currently being diuresed at this time with Lasix 40 mg b.i.d. IV. Patient is also currently on amiodarone drip per protocol. We will continue to follow recommendations from welding machine operator helper arc. ] 12/30/24 79-year-old female admitted secondary to shortness of breath. Patient was noted with atrial fibrillation with RVR. Patient also was noted with acute heart failure exacerbation. Currently improving with further medication adjustments by cardiology/Patient and son prefer to go home at discharge/CT angio planned for Thursday12/31/24 Patient followed up today, she was seen by cardio today and interrogation of pacemaker recommended. Medications have been adjusted, she will be on BB metropolol 37.5 mg TID, amiodarone 200 mg bid, furosemide 20 mg bid. 01/01/25 patient was evaluated today in her room. She is doing a lot better, on room air now. She is tolerating current medication on beta april and antiarrhythmic, diuretics all pills. Patient will have a CTA tomorrow. Interrogation of pacemaker pending. 01/02/25 Patient evaluated in the room, tolerating room air so far. Her vitals reviewed, she remained jazmin in the 40's for 48 hours now. Her I&O reviewed, progressing well current weight is 68.9 kg, from 114 kg on admission. She is pending PPM interrogation and CTA cardiac angio, but since her kidney function going up, it was deferred for later time. 01/03/25 patient went for left heart catheterization. No acute events reported overnight. CT angio has been deferred. Today labs reviewed, BUN 39, creatinine 1.6. We will follow up with left heart catheterization results and recommendations from welding machine operator helper arc. 01/04/25 this patient was evaluated this morning. 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 Patient has ablation scheduled tomorrow. Labs reviewed, creatinine is improving. Patient had anxiety attack post left heart catheterization, Xanax 0.25 mg 01/05/25 this patient was evaluated this morning. 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 Patient has ablation done today and denies any complaints postoperatively REVIEW OF SYSTEMS CONSTITUTIONAL: Denies fevers, chills, or night sweats. No unintentional weight loss reported. NEUROLOGICAL: Denies headache, amaurosis fugax, motor weakness, sensory defi cit, vertigo/spinning sensation, gait abnormalities, or tremors. ENT: No hearing loss, otalgia, otorrhea, rhinitis, rhinorrhea, hoarseness, or sore throat. CARDIOVASCULAR: Lower extremity swelling, dyspnea on exertion, PND, orthopnea PULMONARY: Denies any shortness of breath, cough, phlegm/sputum, hemoptysis, pleuritic chest pain. SLEEP: Denies morning headaches, daytime somnolence or napping. Denies difficulty falling asleep, staying asleep, waking from sleep. Denies knowledge of snoring. GASTROINTESTINAL: Denies any type of dysphagia to either liquids or solids. Denies nausea, vomiting, pyrosis, early satiety, abdominal pain, diarrhea, constipation, or changes in stool consistency or caliber. Denies coffee-ground emesis, hematemesis, hematochezia, or melanotic stools. GENITOURINARY: Denies frequency, urgency, nocturia, hematuria or incontinence (Storage/Irritative symptoms.) Low urinary stream, straining to void, urinary intermittency or hesitancy, splitting of the voiding stream, terminal dribbling. ENDOCRINOLOGIC: Denies polyuria, polydipsia, polyphagia or heat/cold intolerances. HEMATOLOGIC: Denies thrombophilia/previous clots, or coagulopathy/bleeding disorders. ONCOLOGIC: Denies personal history of malignancy. DERMATOLOGIC: Denies rashes or pruritus. PSYCHIATRIC: Denies any suicidal or homicidal ideation. Denies hallucinations. PHYSICAL EXAM GENERAL APPEARANCE: The patient is awake, alert, and oriented, in no acute cardiopulmonary distress. NEUROLOGICAL: Cranial nerves II-XII grossly intact. Motor is 5/5 in bilateral upper and lower extremities proximal to distal. No sensory deficits. HEENT: Face is symmetric. Pupils are equal and reactive. Extraocular movements are intact. NECK: Supple. No JVD. No thyromegaly. No submental, submandibular, pre- /postauricular, occipital or supraclavicular lymphadenopathy. CHEST: Normal chest expansion. No Telemetry. LUNGS: Absence of any rales, rhonchi or any wheezing. CARDIOVASCULAR: irregular. S1 and S2 normal. No appreciable rubs, murmurs or gallops. ABDOMEN: Soft, nontender, and nondistended. There is no rebound, voluntary guarding, or rigidity. : Deferred. No Mcmillan. EXTREMITIES: 2+ pitting edema of the bilateral lower extremities. No clubbing. Good capillary refill. SKIN: No skin breakdown. Vital Signs (last 8hr) Date Time Temp Pulse Resp B/P (MAP) Pulse Ox O2 Delivery O2 Flow Rate FiO2 01/05/25 13:30 97.9 43 12 125/52 99 Nasal Cannula 2.0 24 01/05/25 13:25 43 13 121/53 99 Nasal Cannula 2.0 24 01/05/25 13:20 42 13 123/50 100 Nasal Cannula 2.0 24 01/05/25 13:15 43 12 120/54 99 Nasal Cannula 2.0 24 01/05/25 13:10 42 13 126/52 99 Nasal Cannula 2.0 24 01/05/25 13:05 43 13 131/55 100 Nonrebreathing Mask 10.0 100 01/05/25 13:00 43 12 127/50 100 Nonrebreathing Mask 10.0 100 01/05/25 12:55 42 13 125/59 100 Nonrebreathing Mask 10.0 100 01/05/25 12:50 43 12 128/53 100 Nonrebreathing Mask 10.0 100 01/05/25 12:45 97.5 45 12 118/55 100 Nonrebreathing Mask 10.0 100 01/05/25 10:20 99 Room Air* 0 21 01/05/25 09:43 68 18 N/A Room Air 21 LABS: Laboratory: Test 01/05/25 03:15 Range/Units White Blood Count 8.4 4.8-10.8 K/uL Red Blood Count 3.27 L 4.00-5.50 MIL/uL Hemoglobin 11.0 L 12.0-16.0 g/dL Hematocrit 33.1 L 36-48 % Mean Corpuscular Volume 101.2 H 79-99 fL Mean Corpuscular Hemoglobin 33.6 H 27.0-33.0 pg Mean Corpuscular Hemoglobin Concent 33.2 32.0-36.0 g/dL Red Cell Distribution Width 13.2 11.0-15.5 % Platelet Count 179 130-400 K/uL Mean Platelet Volume 10.6 H 7.5-10.5 fL Nucleated Red Blood Cells 0.0 0.0-0.19 % Sodium Level 140 136-145 mmol/L Potassium Level 4.4 3.5-5.1 mmol/L Chloride Level 106 101-111 mmol/L Carbon Dioxide Level 21 21-32 mmol/L Blood Urea Nitrogen 29 H 7-18 mg/dL Creatinine 1.2 H 0.5-1.0 mg/dL Glomerular Filtration Rate Calc 46 >90 mL/min Random Glucose 117 H 70-105 mg/dL Total Calcium 9.4 8.5-10.1 mg/dL Magnesium Level 2.20 1.80-2.40 mg/dL Current Medications Medications (Trade) Dose Ordered Sig/Ruddy Route PRN Reason Start Time Stop Time Status Last Admin Dose Admin Acetaminophen (TYLenol 325MG TAB) 650 mg Q6H PRN PO MILD PAIN (1-3) 12/28/24 14:00 01/27/25 13:59 01/03/25 13:57 650 MG Alprazolam (XANax 0.25MG) 0.25 mg TID PRN PO ANXIETY/AGITATION 01/03/25 17:00 02/02/25 16:59 01/05/25 14:27 0.25 MG Amiodarone HCl (pacERONE 200MG) 200 mg BID PO 12/30/24 09:00 01/03/25 19:32 DC 01/02/25 22:28 200 MG Amiodarone HCl (pacERONE 200MG) 200 mg DAILY PO 01/06/25 09:00 02/05/25 08:59 Amiodarone HCl 540 mg/Dextrose 300 ml @ 16.667 mls/ hr PROTOCOL IV 12/28/24 14:00 12/29/24 11:01 DC 12/28/24 20:50 16.667 MLS/HR Amiodarone HCl 540 mg/Dextrose 300 ml @ 0 mls/hr PROTOCOL IV 12/29/24 11:00 01/02/25 10:40 DC 12/29/24 18:16 16.6 MLS/HR Apixaban (EliquIS) 5 mg BID PO 01/05/25 21:00 02/04/25 20:59 Aspirin (Aspirin 81mg Chew Tab) 81 mg DAILY PO 12/29/24 09:00 01/28/25 08:59 01/04/25 10:42 81 MG Atorvastatin Calcium (LIPItor 40MG) 80 mg HS PO 12/28/24 21:00 01/27/25 20:59 01/04/25 21:29 80 MG Enoxaparin Sodium (Lovenox) 40 mg DAILY SQ 12/29/24 09:00 01/05/25 12:47 DC 01/04/25 10:46 40 MG Furosemide (LASix 20MG TAB) 20 mg DAILY PO 01/05/25 09:00 02/04/25 08:59 01/05/25 14:27 20 MG Furosemide (LASix 20MG VIAL) 20 mg Q8H IV 12/28/24 14:00 12/29/24 09:26 DC 12/29/24 07:08 20 MG Furosemide (LASix 20MG VIAL) 40 mg BID IV 12/29/24 09:30 12/29/24 09:30 DC Furosemide (LASix 40MG TAB) 40 mg BID@09,17 PO 12/31/24 17:00 01/02/25 10:25 DC 01/01/25 17:09 40 MG Furosemide (LASix 40MG VIAL) 40 mg BID IV 12/29/24 21:00 12/30/24 07:50 DC 12/29/24 20:49 40 MG Furosemide (LASix 40MG VIAL) 40 mg Q8H5 IV 12/30/24 08:00 12/31/24 14:32 DC 12/31/24 12:32 40 MG Home Med (Home Medication) Cholecalciferol (Vitamin D3) 10 MCG DAILY PO 12/29/24 09:00 01/28/25 08:59 01/04/25 10:54 1 EACH Home Med (Home Medication) Magnesium 250 MG HS PO 12/28/24 21:00 01/01/25 15:38 DC Home Med (Home Medication) Verapamil HCl (Verapa... HS PO 12/28/24 21:00 12/31/24 14:32 DC Lisinopril (Prinivil 40mg) 40 mg DAILY PO 12/29/24 09:00 12/30/24 07:52 DC 12/29/24 09:55 40 MG Lorazepam (AtiVAN) 0.5 mg Q4H PRN IVP ANXIETY/AGITATION 01/03/25 16:30 01/03/25 16:23 DC Magnesium Oxide (Mag-Ox) 400 mg PM PO 01/01/25 21:00 01/31/25 20:59 01/04/25 21:28 400 MG Magnesium Sulfate 50 ml @ 0 mls/hr PROTOCOL IV 12/28/24 14:00 01/27/25 13:59 Metoprolol Tartrate (loprESSOR) 25 mg TID PO 12/30/24 08:00 12/31/24 14:32 DC 12/31/24 09:07 25 MG Metoprolol Tartrate (loprESSOR) 37.5 mg TID PO 12/31/24 21:00 01/01/25 14:39 DC 01/01/25 09:22 37.5 MG Metoprolol Tartrate (loprESSOR) 50 mg TID PO 12/30/24 08:00 12/30/24 07:53 DC Metoprolol Tartrate (loprESSOR) 50 mg TID PO 01/01/25 15:00 01/02/25 10:40 DC 01/01/25 20:40 50 MG Metoprolol Tartrate (loprESSOR) 50 mg TID PO 01/02/25 14:00 01/31/25 14:59 01/04/25 21:28 50 MG Ondansetron HCl (zoFRAN 4MG INJ) 4 mg Q6H PRN IVP NAUSEA/VOMITING 12/28/24 14:00 01/03/25 19:32 DC Pantoprazole Sodium (PROTonix 40MG TAB) 40 mg DAILY PO 12/29/24 09:00 01/28/25 08:59 01/05/25 14:27 40 MG Potassium Chloride 100 ml @ 100 mls/hr AD PRN IV POTASSIUM PROTOCOL 12/28/24 14:00 01/27/25 13:59 Potassium Chloride (K-Dur/Klor-Con 20meq) 20 meq AD PRN PO POTASSIUM PROTOCOL 12/28/24 14:00 01/27/25 13:59 Potassium Chloride (K-Dur/Klor-Con 20meq) 20 meq BID PO 12/29/24 21:00 01/28/25 20:59 01/04/25 21:28 20 MEQ Potassium Chloride (KCl 10% Elixir 20meq/15ml) 20 meq AD PRN PO POTASSIUM PROTOCOL 12/28/24 14:00 01/27/25 13:59 Sacubitril/ Valsartan (Entresto 24 Mg-26 Mg Tablet) 0.5 each BID PO 01/04/25 10:30 02/03/25 10:29 01/05/25 14:28 0.5 EACH Sodium Chloride 1,000 ml @ 0 mls/hr Q0M IV 01/03/25 19:30 02/02/25 19:29 Sodium Chloride 1,000 ml @ 100 mls/hr Q10H IV 01/03/25 13:30 01/03/25 23:29 DC 01/03/25 13:54 100 MLS/HR Spironolactone (Aldactone 25mg) 25 mg DAILY PO 01/04/25 10:30 02/03/25 10:29 01/05/25 14:27 25 MG Vitamin B Complex (Vitamin B-12) 1,000 mcg DAILY PO 12/29/24 09:00 01/28/25 08:59 01/04/25 10:42 1,000 MCG DIAGNOSTICS / RADIOLOGY: [ ] ASSESSMENT: Acute heart failure exacerbation, pending 2D echocardiogram to assess for systolic/diastolic function, POA Acute hypoxemic respiratory failure, POA Paroxysmal atrial fibrillation with ventricular bigeminy, POA History of Watchman device placement about five years ago, POA History of prior cardioversions and cardiac ablation for atrial fibrillation, POA Hypertension, POA Hyperlipidemia, POA Obstructive sleep apnea maintained on outpatient CPAP, POA Obesity, POA PLAN: C/w cardiac telemetry floor Continue with supplemental O2 therapy to maintain oxygen saturation greater than 92% Continue with Amiodarone 200 mg po BID, Lopressor adjusted to 50 mg TID, we appreciate rec's from cardio -patient went for [facility] in am by Dr. Uribe showed ischemic cardiomyopathy due to frequent PVCs -patient will continue with Lasix 20 mg p.o. daily, [id number] mg daily -patient is for ablation tomorrow We will maintain K greater than four and magnesium greater than two We will keep patient on telemetry to assess PVC burden 2decho reviewed Continue with rest of the home medications DVT prophylaxis with Lovenox 40 mg subcutaneous daily GI prophylaxis with Protonix Patient to resume CPAP nightly for management of obstructive sleep apnea All labs will be repeated in the morning Case was seen and examined with Dr. Mays, above plan was formulated MAXINE MAYS MD January 05, 2025 16:17
[2025-01-05] MEDS: APIXaban 5 MG TABLET PO SCH (20:36)
[2025-01-06] VITALS (38 sets, daily range): BP systolic 87–151; BP diastolic 31–74; PULSE 58–88; RESP 10–32; TEMP 97.8–98.7; O2SAT 94–98
--- NOTE | 2025-01-06 04:34 | NUR ---
PT S/P ABLATION BY DR. SINGH, DX AFIB RVR - B/P HAVE BEEN SOFT ALL NIGHT LOW 100's, B/P MEDS WERE HELD TODAY, MARS SHOWS LASIX AND OTHER B/P LOWERING AGENTS PLUS XANAX AND SEDATION IN EXPRESS MANAGER WAS GIVEN THAT COULD HAVE CONTRIBUTED TO SOF TB/P. AT THIS TIME PT IS IN BED AAOX4, FEELING GOOD ASYMPTOMATIC WHEN REACCESED 0400 AM VITALS B/P WAS 77/43, REPOSITIONED PT AND REASJUSTED CUFF B/P AND SWITCHED TO ANOTHER LIMB, RECHECK WAS 84/40. ELEVATED LEGS REVERSE TRENDELENBURG POSITIONED 15 MIN LATER 102/39 PAGED HOSPITALIST MADE AWARE OF ABNORMAL VITALS WITH NO SYMPTOMS PER PT. NEW ORDER TRANSFER TO ICU FOR CRITICAL CARE CONSULT. NOTED AND CARRIED OUT - PAGED DISEASE CASE MANAGER RN MADE AWARE OF TRANSFER - REPORT GIVEN TO ANDREW BROWN ICU AND CALLED DAUGHTER MADE HER AWARE
--- NOTE | 2025-01-06 04:43 | NUR ---
AFTER REVERSE TRENDELEN[place]G B/P 100/45 - TRANSFERRING TO ICU
--- NOTE | 2025-01-06 05:16 | NUR ---
MAGALIS JOHNSON HIDE COOKING OPERATOR - MADE AWARE OF TRANSFER - NEW ORDER START LEVOPHED AND GET UPDATED LABS CBC, CMP AND TROPS AND BNP FOR EVALUATION. NURSE TO MAKE CARDIOLOGY KNOW WELL OF TRANSFER. MADE ANDREW BROWN NEW NURSE AWARE
[2025-01-06 05:28] LABS: BASOPHILS # (AUTO) 0.03 K/uL (0.00-0.20); BASOPHILS % (AUTO) 0.4 % (0.0-5.0); EOSINOPHILS % (AUTO) 3.9 % (0.0-8.0); IMMATURE GRANULOCYTE ABSOLUTE 0.01 K/uL (0-1); LYMPHOCYTES % (AUTO) 26.3 % (21.0-51.0); MEAN CORPUSCULAR HEMOGLOBIN 32.9 pg (27.0-33.0); MEAN CORPUSCULAR HGB CONC 32.7 g/dL (32.0-36.0); MEAN CORPUSCULAR VOLUME 100.7 fL (79-99); MONOCYTES # (AUTO) 0.7 K/uL (0.1-1.0); MONOCYTES % (AUTO) 8.8 % (3.0-13.0); NEUTROPHILS # (AUTO) 4.7 K/uL (1.8-7.7); NEUTROPHILS % (AUTO) 60.5 % (40.0-77.0); PLATELET COUNT (AUTO) 173 K/uL (130-400); RED BLOOD CELL COUNT(AUTO) 2.98 MIL/uL (4.00-5.50); RED CELL DISTRIBUTION WIDTH 13.5 % (11.0-15.5); WHITE BLOOD COUNT (AUTO) 7.7 K/uL (4.8-10.8)
[2025-01-06] MEDS ORDERED: NOREPINEPHRIN 4MG/NS 250ML 250 ML IV SCH (05:30)
[2025-01-06 05:49] LABS: ALBUMIN 3.4 g/dL (3.5-5.0); BILIRUBIN,TOTAL 0.7 mg/dL (0.2-1.0); CREATININE 1.1 mg/dL (0.5-1.0); POTASSIUM 4.7 mmol/L (3.5-5.1); TOTAL PROTEIN, SERUM 6.3 g/dL (6.0-8.3)
[2025-01-06 05:55] LABS: B-TYPE NATRIURETIC PEPTIDE 50 pg/mL (0-100)
--- NOTE | 2025-01-06 07:54 | EKG ---
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: nuvia : 1945 Requested By: JOEY POOL Order Number: [id number] Reading MD: Oswald Clinton Measurements Intervals [place] Rate: 90 P: 0 [place]: 144 QRS: -4 QRSD: 102 T: -67 QT: 396 QTc: 484 Interpretive Statements Gender not entered, assumed to be male for purpose of ECG interpretation Atrial-paced complexes Ventricular bigeminy Nonspecific T abnormalities, inferior leads Compared to ECG 01/02/2025 09:47:00 Ventricular premature complex(es) now present Junctional rhythm no longer present Early repolarization no longer present Possible ischemia no longer present Prolonged QT interval no longer present T-wave abnormality still present Electronically Signed On 01-06-2025 15:52:10 CDT by Oswald Clinton Please click the below link to view image of tracing.
[2025-01-06] MEDS: AMIOdarone 200 MG TABLET PO SCH (08:39)
--- NOTE | 2025-01-06 10:00 | NUR ---
Morning diuretics held along with antihypertensive due to soft blood pressures. Patient states she does feel tired and hasn't rested. Will monitor blood pressure and vitals and follow up with provider.
[2025-01-06] MEDS: MEXILETINE HCL 150 MG CAP PO SCH (12:06)
--- NOTE | 2025-01-06 15:28 | PN ---
[facility] PROGRESS NOTE Date of Service: January 06, 2025 Time of Service: 15:27 SUBJECTIVE: [79-year-old female admitted secondary to shortness of breaths. Patient was noted with atrial fibrillation with RVR. Patient also was noted with acute heart failure exacerbation. She continues with oxygen via nasal cannula. Right upper lung noted fine crackles. She is currently being diuresed at this time with Lasix 40 mg b.i.d. IV. Patient is also currently on amiodarone drip per protocol. We will continue to follow recommendations from haul cane brakeman. ] 12/30/24 79-year-old female admitted secondary to shortness of breath. Patient was noted with atrial fibrillation with RVR. Patient also was noted with acute heart failure exacerbation. Currently improving with further medication adjustments by cardiology/Patient and son prefer to go home at discharge/CT angio planned for Thursday12/31/24 Patient followed up today, she was seen by cardio today and interrogation of pacemaker recommended. Medications have been adjusted, she will be on BB metropolol 37.5 mg TID, amiodarone 200 mg bid, furosemide 20 mg bid. 01/01/25 patient was evaluated today in her room. She is doing a lot better, on room air now. She is tolerating current medication on beta april and antiarrhythmic, diuretics all pills. Patient will have a CTA tomorrow. Interrogation of pacemaker pending. 01/02/25 Patient evaluated in the room, tolerating room air so far. Her vitals reviewed, she remained jazmin in the 40's for 48 hours now. Her I&O reviewed, progressing well current weight is 68.9 kg, from 114 kg on admission. She is pending PPM interrogation and CTA cardiac angio, but since her kidney function going up, it was deferred for later time. 01/03/25 patient went for left heart catheterization. No acute events reported overnight. CT angio has been deferred. Today labs reviewed, BUN 39, creatinine 1.6. We will follow up with left heart catheterization results and recommendations from haul cane brakeman. 01/04/25 this patient was evaluated this morning. 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 Patient has ablation scheduled tomorrow. Labs reviewed, creatinine is improving. Patient had anxiety attack post left heart catheterization, Xanax 0.25 mg 01/05/25 this patient was evaluated this morning. 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 Patient has ablation done today and denies any complaints postoperatively 01/06/25 patient was seen and examined. Case discussed with the RN. She underwent ablation for frequent PVCs secondary to ischemic cardiomyopathy. She she was doing well without any chest pain REVIEW OF SYSTEMS CONSTITUTIONAL: Denies fevers, chills, or night sweats. No unintentional weight loss reported. NEUROLOGICAL: Denies headache, amaurosis fugax, motor weakness, sensory deficit, vertigo/spinning sensation, gait abnormalities, or tremors. ENT: No hearing loss, otalgia, otorrhea, rhinitis, rhinorrhea, hoarseness, or sore throat. CARDIOVASCULAR: Lower extremity swelling, dyspnea on exertion, PND, orthopnea PULMONARY: Denies any shortness of breath, cough, phlegm/sputum, hemoptysis, pleuritic chest pain. SLEEP: Denies morning headaches, daytime somnolence or napping. Denies difficulty falling asleep, staying asleep, waking from sleep. Denies knowledge of snoring. GASTROINTESTINAL: Denies any type of dysphagia to either liquids or solids. Denies nausea, vomiting, pyrosis, early satiety, abdominal pain, diarrhea, constipation, or changes in stool consistency or caliber. Denies coffee-ground emesis, hematemesis, hematochezia, or melanotic stools. GENITOURINARY: Denies frequency, urgency, nocturia, hematuria or incontinence (Storage/Irritative symptoms.) Low urinary stream, straining to void, urinary intermittency or hesitancy, splitting of the voiding stream, terminal dribbling. ENDOCRINOLOGIC: Denies polyuria, polydipsia, polyphagia or heat/cold intolerances. HEMATOLOGIC: Denies thrombophilia/previous clots, or coagulopathy/bleeding disorders. ONCOLOGIC: Denies personal history of malignancy. DERMATOLOGIC: Denies rashes or pruritus. PSYCHIATRIC: Denies any suicidal or homicidal ideation. Denies hallucinations. PHYSICAL EXAM GENERAL APPEARANCE: The patient is awake, alert, and oriented, in no acute cardiopulmonary distress. NEUROLOGICAL: Cranial nerves II-XII grossly intact. Motor is 5/5 in bilateral upper and lower extremities proximal to distal. No sensory deficits. HEENT: Face is symmetric. Pupils are equal and reactive. Extraocular movements are intact. NECK: Supple. No JVD. No thyromegaly. No submental, submandibular, pre- /postauricular, occipital or supraclavicular lymphadenopathy. CHEST: Normal chest expansion. No Telemetry. LUNGS: Absence of any rales, rhonchi or any wheezing. CARDIOVASCULAR: irregular. S1 and S2 normal. No appreciable rubs, murmurs or gallops. ABDOMEN: Soft, nontender, and nondistended. There is no rebound, voluntary guarding, or rigidity. : Deferred. No Mcmillan. EXTREMITIES: 2+ pitting edema of the bilateral lower extremities. No clubbing. Good capillary refill. SKIN: No skin breakdown. Vital Signs (last 8hr) Date Time Temp Pulse Resp B/P (MAP) Pulse Ox O2 Delivery O2 Flow Rate FiO2 01/06/25 11:30 97.9 66 17 107/59 93 Room Air 01/06/25 11:15 80 16 119/41 89 Room Air 01/06/25 11:00 80 16 119/41 89 Room Air 01/06/25 10:30 80 21 121/46 97 Room Air 01/06/25 10:00 80 17 114/49 91 Room Air 01/06/25 09:45 66 20 97/33 94 Room Air 01/06/25 09:30 82 19 98/37 93 Room Air 01/06/25 09:00 80 21 106/31 95 Room Air 01/06/25 08:45 80 30 106/31 95 Room Air 01/06/25 08:30 82 18 115/56 89 Room Air 01/06/25 08:00 97 Room Air* 0 21 01/06/25 08:00 85 16 117/57 96 Room Air 01/06/25 07:45 74 15 121/44 86 Room Air 01/06/25 07:30 74 15 121/44 86 Room Air LABS: Laboratory: Test 01/06/25 05:21 01/05/25 11:26 Range/Units White Blood Count 7.7 4.8-10.8 K/uL Red Blood Count 2.98 L 4.00-5.50 MIL/uL Hemoglobin 9.8 L 12.0-16.0 g/dL Hematocrit 30.0 L 36-48 % Mean Corpuscular Volume 100.7 H 79-99 fL Mean Corpuscular Hemoglobin 32.9 27.0-33.0 pg Mean Corpuscular Hemoglobin Concent 32.7 32.0-36.0 g/dL Red Cell Distribution Width 13.5 11.0-15.5 % Platelet Count 173 130-400 K/uL Mean Platelet Volume 10.6 H 7.5-10.5 fL Immature Granulocyte % (Auto) 0.1 0-1 % Neutrophils (%) (Auto) 60.5 40.0-77.0 % Lymphocytes (%) (Auto) 26.3 21.0-51.0 % Monocytes (%) (Auto) 8.8 3.0-13.0 % Eosinophils (%) (Auto) 3.9 0.0-8.0 % Basophils (%) (Auto) 0.4 0.0-5.0 % Neutrophils # (Auto) 4.7 1.8-7.7 K/uL Lymphocytes # (Auto) 2.0 1.0-4.8 K/uL Monocytes # (Auto) 0.7 0.1-1.0 K/uL Eosinophils # (Auto) 0.30 0.00-0.70 K/uL Basophils # (Auto) 0.03 0.00-0.20 K/uL Absolute Immature Granulocyte (auto 0.01 0-1 K/uL Nucleated Red Blood Cells 0.0 0.0-0.19 % Sodium Level 141 136-145 mmol/L Potassium Level 4.7 3.5-5.1 mmol/L Chloride Level 109 101-111 mmol/L Carbon Dioxide Level 22 21-32 mmol/L Blood Urea Nitrogen 23 H 7-18 mg/dL Creatinine 1.1 H 0.5-1.0 mg/dL Glomerular Filtration Rate Calc 51 >90 mL/min Random Glucose 127 H 70-105 mg/dL Total Calcium 8.8 8.5-10.1 mg/dL Magnesium Level 2.00 1.80-2.40 mg/dL Total Bilirubin 0.7 0.2-1.0 mg/dL Aspartate Amino Transf (AST/SGOT) 34 10-37 U/L Alanine Aminotransferase (ALT/SGPT) 24 12-78 U/L Alkaline Phosphatase 60 50-136 U/L Troponin I High Sensitivity 1899 *H 4-50 ng/L B-Type Natriuretic Peptide 50 0-100 pg/mL Total Protein 6.3 6.0-8.3 g/dL Albumin 3.4 L 3.5-5.0 g/dL Activated Clotting Time 243 H 100-180 SEC Current Medications Medications (Trade) Dose Ordered Sig/Ruddy Route PRN Reason Start Time Stop Time Status Last Admin Dose Admin Acetaminophen (TYLenol 325MG TAB) 650 mg Q6H PRN PO MILD PAIN (1-3) 12/28/24 14:00 01/27/25 13:59 01/03/25 13:57 650 MG Alprazolam (XANax 0.25MG) 0.25 mg TID PRN PO ANXIETY/AGITATION 01/03/25 17:00 02/02/25 16:59 01/05/25 14:27 0.25 MG Amiodarone HCl (pacERONE 200MG) 200 mg BID PO 12/30/24 09:00 01/03/25 19:32 DC 01/02/25 22:28 200 MG Amiodarone HCl (pacERONE 200MG) 200 mg DAILY PO 01/06/25 09:00 02/05/25 08:59 01/06/25 08:39 200 MG Amiodarone HCl 540 mg/Dextrose 300 ml @ 16.667 mls/ hr PROTOCOL IV 12/28/24 14:00 12/29/24 11:01 DC 12/28/24 20:50 16.667 MLS/HR Amiodarone HCl 540 mg/Dextrose 300 ml @ 0 mls/hr PROTOCOL IV 12/29/24 11:00 01/02/25 10:40 DC 12/29/24 18:16 16.6 MLS/HR Apixaban (EliquIS) 5 mg BID PO 01/05/25 21:00 02/04/25 20:59 01/06/25 08:39 5 MG Aspirin (Aspirin 81mg Chew Tab) 81 mg DAILY PO 12/29/24 09:00 01/28/25 08:59 01/06/25 08:39 81 MG Atorvastatin Calcium (LIPItor 40MG) 80 mg HS PO 12/28/24 21:00 01/27/25 20:59 01/05/25 20:35 80 MG Enoxaparin Sodium (Lovenox) 40 mg DAILY SQ 12/29/24 09:00 01/05/25 12:47 DC 01/04/25 10:46 40 MG Furosemide (LASix 20MG TAB) 20 mg DAILY PO 01/05/25 09:00 02/04/25 08:59 01/05/25 14:27 20 MG Furosemide (LASix 20MG VIAL) 20 mg Q8H IV 12/28/24 14:00 12/29/24 09:26 DC 12/29/24 07:08 20 MG Furosemide (LASix 20MG VIAL) 40 mg BID IV 12/29/24 09:30 12/29/24 09:30 DC Furosemide (LASix 40MG TAB) 40 mg BID@09,17 PO 12/31/24 17:00 01/02/25 10:25 DC 01/01/25 17:09 40 MG Furosemide (LASix 40MG VIAL) 40 mg BID IV 12/29/24 21:00 12/30/24 07:50 DC 12/29/24 20:49 40 MG Furosemide (LASix 40MG VIAL) 40 mg Q8H5 IV 12/30/24 08:00 12/31/24 14:32 DC 12/31/24 12:32 40 MG Home Med (Home Medication) Cholecalciferol (Vitamin D3) 10 MCG DAILY PO 12/29/24 09:00 01/28/25 08:59 01/04/25 10:54 1 EACH Home Med (Home Medication) Magnesium 250 MG HS PO 12/28/24 21:00 01/01/25 15:38 DC Home Med (Home Medication) Verapamil HCl (Verapa... HS PO 12/28/24 21:00 12/31/24 14:32 DC Lisinopril (Prinivil 40mg) 40 mg DAILY PO 12/29/24 09:00 12/30/24 07:52 DC 12/29/24 09:55 40 MG Lorazepam (AtiVAN) 0.5 mg Q4H PRN IVP ANXIETY/AGITATION 01/03/25 16:30 01/03/25 16:23 DC Magnesium Oxide (Mag-Ox) 400 mg PM PO 01/01/25 21:00 01/31/25 20:59 01/05/25 20:36 400 MG Magnesium Sulfate 50 ml @ 0 mls/hr PROTOCOL IV 12/28/24 14:00 01/27/25 13:59 Metoprolol Tartrate (loprESSOR) 25 mg TID PO 12/30/24 08:00 12/31/24 14:32 DC 12/31/24 09:07 25 MG Metoprolol Tartrate (loprESSOR) 37.5 mg TID PO 12/31/24 21:00 01/01/25 14:39 DC 01/01/25 09:22 37.5 MG Metoprolol Tartrate (loprESSOR) 50 mg TID PO 12/30/24 08:00 12/30/24 07:53 DC Metoprolol Tartrate (loprESSOR) 50 mg TID PO 01/01/25 15:00 01/02/25 10:40 DC 01/01/25 20:40 50 MG Metoprolol Tartrate (loprESSOR) 50 mg TID PO 01/02/25 14:00 01/31/25 14:59 01/06/25 08:39 50 MG Mexiletine HCl (Mexitil) 150 mg Q8H PO 01/06/25 10:00 02/05/25 09:59 01/06/25 12:06 150 MG Norepinephrine 250 ml @ 0 mls/hr PROTOCOL IV 01/06/25 05:30 01/06/25 13:18 DC Ondansetron HCl (zoFRAN 4MG INJ) 4 mg Q6H PRN IVP NAUSEA/VOMITING 12/28/24 14:00 01/03/25 19:32 DC Pantoprazole Sodium (PROTonix 40MG TAB) 40 mg DAILY PO 12/29/24 09:00 01/28/25 08:59 01/06/25 08:39 40 MG Potassium Chloride 100 ml @ 100 mls/hr AD PRN IV POTASSIUM PROTOCOL 12/28/24 14:00 01/27/25 13:59 Potassium Chloride (K-Dur/Klor-Con 20meq) 20 meq AD PRN PO POTASSIUM PROTOCOL 12/28/24 14:00 01/27/25 13:59 Potassium Chloride (K-Dur/Klor-Con 20meq) 20 meq BID PO 12/29/24 21:00 01/28/25 20:59 01/06/25 08:40 20 MEQ Potassium Chloride (KCl 10% Elixir 20meq/15ml) 20 meq AD PRN PO POTASSIUM PROTOCOL 12/28/24 14:00 01/27/25 13:59 Sacubitril/ Valsartan (Entresto 24 Mg-26 Mg Tablet) 0.5 each BID PO 01/04/25 10:30 02/03/25 10:29 01/05/25 14:28 0.5 EACH Sodium Chloride 1,000 ml @ 0 mls/hr Q0M IV 01/03/25 19:30 02/02/25 19:29 Sodium Chloride 1,000 ml @ 100 mls/hr Q10H IV 01/03/25 13:30 01/03/25 23:29 DC 01/03/25 13:54 100 MLS/HR Spironolactone (Aldactone 25mg) 25 mg DAILY PO 01/04/25 10:30 02/03/25 10:29 01/05/25 14:27 25 MG Vitamin B Complex (Vitamin B-12) 1,000 mcg DAILY PO 12/29/24 09:00 01/28/25 08:59 01/06/25 08:39 1,000 MCG DIAGNOSTICS / RADIOLOGY: [ ] ASSESSMENT: Acute heart failure exacerbation, pending 2D echocardiogram to assess for systolic/diastolic function, POA Acute hypoxemic respiratory failure, POA Paroxysmal atrial fibrillation with ventricular bigeminy, POA History of Watchman device placement about five years ago, POA History of prior cardioversions and cardiac ablation for atrial fibrillation, POA Hypertension, POA Hyperlipidemia, POA Obstructive sleep apnea maintained on outpatient CPAP, POA Obesity, POA PLAN: C/w cardiac telemetry floor Continue with supplemental O2 therapy to maintain oxygen saturation greater than 92% Continue with Amiodarone 200 mg po BID, Lopressor adjusted to 50 mg TID, we appreciate rec's from cardio -patient went for [facility] in am by Dr. Uribe showed ischemic cardiomyopathy due to frequent PVCs -patient will continue with Lasix 20 mg p.o. daily, [id number] mg daily -patient is for ablation tomorrow We will maintain K greater than four and magnesium greater than two We will keep patient on telemetry to assess PVC burden 2decho reviewed Continue with rest of the home medications DVT prophylaxis with Lovenox 40 mg subcutaneous daily GI prophylaxis with Protonix Patient to resume CPAP nightly for management of obstructive sleep apnea All labs will be repeated in the morning Case was seen and examined with Dr. Mays, above plan was formulated MAXINE MAYS MD January 06, 2025 15:28
--- NOTE | 2025-01-06 17:15 | CONS ---
[facility] CONSULTATION NOTE Date Patient Seen: January 06, 2025 Time of Visit: 17:13 Supervising Physician: Dr. Maya Reason for Consultation: Hypotension requiring pressor Primary Care Physician: Dr. Sugey Larkin MD Outpatient Specialists: [ ] Inpatient Consults: [ ] PROBLEM LIST: Acute heart failure exacerbation, s/p 2D echocardiogram done 12/27/2024 LVEF: 35- 40% possibly PVC related. Normal coronary arteries by cardiac catheterization 01/03/2025: Acute hypoxemic respiratory failure, POA resolved Paroxysmal atrial fibrillation with ventricular bigeminy, POA CHADS2 VASc score: 4 points. s/p Watchman implantation approximately five years ago, s/p cardiac ablation on 01/05/2025 Hypertension, POA Hyperlipidemia, POA Obstructive sleep apnea maintained on outpatient CPAP, POA Obesity, POA History of Watchman device placement about five years ago, POA History of prior cardioversions and cardiac ablation for atrial fibrillation, POA HPI: This is a 79-year-old female with underlying history of hypertension, hyperlipidemia, obesity, obstructive sleep apnea, history of atrial fibrillation with prior history of prior cardioversions, history of Watchman device about five years ago, recent history of cardioversion in 11/2024. She presented to the emergency department with complaint of shortness of breath. Per the patient report, this has been ongoing over the past 7-10 days and has been progressive with exertion and has experienced bilateral lower extremity edema. Evaluation in the emergency department showed a WBC count of 8900, hemoglobin of 11.0, platelet count of 278445. Chemistry panel showed sodium of 138, potassium 4.4, BUN of 21, creatinine of 1.2, magnesium 2.2. Chest x-ray did show pulmonary vascular congestion. EKG showed findings of atrial fibrillation with ventricular bigeminy. Post workup, the patient was admitted and cardiology was consulted. Per the patient report, she recently had a 2d echo done on 12/27/2024 showed normal LV size for BSA 2.6 cm/m2, LVEF 35-40%, mild left atrial enlargement. During her stay, cardiology took the patient for a left heart catheterization on 01/03/2025 which showed ischemic cardiomyopathy due to frequent PVCs. She was sent for a cardiac ablation done on 01/05/2025. Overnight, the patient has had low BP piece with intermittent hypotensive readings as low as 77/43, that did not respond to positional measures such as Trendelenburg and the patient was subsequently upgraded to ICU and was started on Levophed drip and brought into the ICU. During my visit, the patient was lying in bed. Reports feeling much better and Levophed drip was discontinued. No other complaint. PAST MEDICAL HX: see above PAST SURGICAL HX: noncontributory SOCIAL HISTORY: No tobacco, ETOH, or illicit drug use Coded Allergies: codeine (Verified Adverse Reaction, Mild, 02/09/24) NAUSEA, VOMITING REVIEW OF SYSTEMS: 12 point ROS reviewed with patient. Pertinent positives mentioned above. Otherwise negative. PHYSICAL EXAM: GENERAL: alert, weak, awake oriented x 3 HEENT: EOMI, Sclera non icteric, moist mucosa NECK: Supple, no JVD, trachea midline LUNGS: Clear breath sounds bilaterally. No wheezes HEART: Regular rate and rhythm. Normal S1 and S2, without murmurs ABD: Abdomen soft, nontender. Bowel sounds present EXT: No clubbing cyanosis or edema NEURO: Alert and oriented to person, follows commands Vital Signs (last 8hr) Date Time Temp Pulse Resp B/P (MAP) Pulse Ox O2 Delivery O2 Flow Rate FiO2 01/06/25 15:00 18 N/A Room Air 21 01/06/25 15:00 60 22 102/48 96 Room Air 01/06/25 14:25 60 18 151/58 96 Room Air 01/06/25 14:00 60 19 103/39 96 Room Air 01/06/25 13:00 60 21 94/45 95 Room Air 01/06/25 12:30 68 18 87/36 84 Room Air 01/06/25 12:00 77 22 98/67 96 Room Air 01/06/25 12:00 98 Room Air* 0 21 01/06/25 11:30 97.9 66 17 107/59 93 Room Air 01/06/25 11:15 80 16 119/41 89 Room Air 01/06/25 11:00 80 16 119/41 89 Room Air 01/06/25 10:30 80 21 121/46 97 Room Air 01/06/25 10:00 80 17 114/49 91 Room Air 01/06/25 09:45 66 20 97/33 94 Room Air 01/06/25 09:30 82 19 98/37 93 Room Air LABS: Hematology Labs: Test 01/06/25 05:21 Range/Units White Blood Count 7.7 4.8-10.8 K/uL Red Blood Count 2.98 L 4.00-5.50 MIL/uL Hemoglobin 9.8 L 12.0-16.0 g/dL Hematocrit 30.0 L 36-48 % Mean Corpuscular Volume 100.7 H 79-99 fL Mean Corpuscular Hemoglobin 32.9 27.0-33.0 pg Mean Corpuscular Hemoglobin Concent 32.7 32.0-36.0 g/dL Red Cell Distribution Width 13.5 11.0-15.5 % Platelet Count 173 130-400 K/uL Mean Platelet Volume 10.6 H 7.5-10.5 fL Immature Granulocyte % (Auto) 0.1 0-1 % Neutrophils (%) (Auto) 60.5 40.0-77.0 % Lymphocytes (%) (Auto) 26.3 21.0-51.0 % Monocytes (%) (Auto) 8.8 3.0-13.0 % Eosinophils (%) (Auto) 3.9 0.0-8.0 % Basophils (%) (Auto) 0.4 0.0-5.0 % Neutrophils # (Auto) 4.7 1.8-7.7 K/uL Lymphocytes # (Auto) 2.0 1.0-4.8 K/uL Monocytes # (Auto) 0.7 0.1-1.0 K/uL Eosinophils # (Auto) 0.30 0.00-0.70 K/uL Basophils # (Auto) 0.03 0.00-0.20 K/uL Absolute Immature Granulocyte (auto 0.01 0-1 K/uL Nucleated Red Blood Cells 0.0 0.0-0.19 % Chemistry Labs: Test 01/06/25 05:21 Range/Units Sodium Level 141 136-145 mmol/L Potassium Level 4.7 3.5-5.1 mmol/L Chloride Level 109 101-111 mmol/L Carbon Dioxide Level 22 21-32 mmol/L Blood Urea Nitrogen 23 H 7-18 mg/dL Creatinine 1.1 H 0.5-1.0 mg/dL Glomerular Filtration Rate Calc 51 >90 mL/min Random Glucose 127 H 70-105 mg/dL Total Calcium 8.8 8.5-10.1 mg/dL Magnesium Level 2.00 1.80-2.40 mg/dL Total Bilirubin 0.7 0.2-1.0 mg/dL Aspartate Amino Transf (AST/SGOT) 34 10-37 U/L Alanine Aminotransferase (ALT/SGPT) 24 12-78 U/L Alkaline Phosphatase 60 50-136 U/L Troponin I High Sensitivity 1899 *H 4-50 ng/L B-Type Natriuretic Peptide 50 0-100 pg/mL Total Protein 6.3 6.0-8.3 g/dL Albumin 3.4 L 3.5-5.0 g/dL Coagulation Labs: Test 01/05/25 11:26 Range/Units Activated Clotting Time 243 H 100-180 SEC DIAGNOSTICS / RADIOLOGY RESULTS: [ ] PLAN The patient was upgraded to the ICU due to hypotensive events requiring pressor therapy. Critical care team was consulted for further management of her hypotensive event. Today, the patient was weaned off the Levophed and blood p ressure has been maintained with a map above 65. I believe the patient is stable enough and can be transferred out of the ICU back to PCCU. We will continue to follow the recommendation of the Cardiology team and EPS specialist. We will continue provide general supportive care, GI and DVT prophylaxis. Further orders per attending MD and hospital course. NEURO: Minimize central acting medications as possible. Fall Precautions. Well lighted room through the day and minimize interruptions through the night to prevent acute delirium. PULMONARY: Supplemental 02 as needed Titrate Fio2 to keep Spo2 > or = 90% DuoNebs and CPT as needed IS hourly while awake for pulmonary hygiene Out of bed to chair as tolerated VAP Bundle CARDIOVASCULAR: Follow hemodynamics. Titrate vasopressor to keep MAP >65 or systolic blood pressure >95mmHg DIPS: None LINES: PIV's GI & NUTRITION: Continue nutritional support Aspirations precautions Prokinetic agents and laxatives as needed KIDNEYS & ELECTROLYTES: Strict monitoring of intake and output Daily weights Avoid nephrotoxic agents Monitor electrolytes and replace as needed Goal urine output of 30mL/hr or 0.5mL/kg/hr Urine output: [ ] Fluid Balance: [ ] ENDOCRINE: Maintain blood glucose between 100-180 at all times. Insulin sliding scale for blood glucose management INFECTIOUS DISEASE: Trend temperature. Jacobson-culture if febrile. Micro: [ ] Antibiotics: [ ] HEMATOLOGY & COAGULATION: Monitor H&H. Keep Hgb > 7 Transfuse 1 unit of PRBC for Hgb < 7 Transfuse 1 pack of platelets of platelets < 20, 000 Watch for any signs and symptoms of bleeding SKIN: Pressure ulcer prevention per facility protocol Rehab: PT/OT Prophylaxis: GI: [ ] DVT: [ ] Code Status: Full Resuscitation Disposition: PCCU Other: I personally spent 40 minutes of critical care time in treatment of this patient. This includes patient management, time at bedside, time reviewing tests, labs, appropriate images and studies, documentation, and patient care coordination. This time excludes separately billable procedures. Case was discussed and seen with my supervising physician. The above plan was formulated and agreed upon. BIRGIT HU NP January 06, 2025 17:15
--- NOTE | 2025-01-06 18:34 | PN ---
[facility] CARDIAC ELECTROPHYSIOLOGY PROGRESS NOTE Date Patient Seen: January 06, 2025 Time of Visit: 12:30 Interval History: The patient is status post PVC ablation yesterday. Full details are in the report. Basically, she had PVCs originated in the mid inferior wall of the left ventricle. She was also noted to have numerous other morphologies of PVC, mostly provoked by isoproterenol. She has a nonischemic cardiomyopathy with ejection fraction 35 to 40% on 12/27/2024 (she had normal coronaries on cardiac catheterization during this admission) and paroxysmal atrial fibrillation, post PVC ablation yesterday, there were no PVCs seen for more than 30 minutes while she had come in with incessant ventricular bigeminy. Overnight, she began to have recurrent PVCs and ventricular bigeminy. Examination of the EKG reveals these PVCs to be coming from a different site however somewhat close to the site ablated. Overnight she developed hypotension, however I am not sure how accurate this is given the fact that patients in a bigeminal rhythm often have incorrect blood pressure readings. The patient was feeling generally well. At the time of this visit, she is sit ting up in bed with no complaints. A troponin was sent this morning which was 1,899 which of course, is secondary to ablation. Potassium and magnesium are normal. Laboratory: [ ] Hematology Labs: Test 01/06/25 05:21 Range/Units White Blood Count 7.7 4.8-10.8 K/uL Red Blood Count 2.98 L 4.00-5.50 MIL/uL Hemoglobin 9.8 L 12.0-16.0 g/dL Hematocrit 30.0 L 36-48 % Mean Corpuscular Volume 100.7 H 79-99 fL Mean Corpuscular Hemoglobin 32.9 27.0-33.0 pg Mean Corpuscular Hemoglobin Concent 32.7 32.0-36.0 g/dL Red Cell Distribution Width 13.5 11.0-15.5 % Platelet Count 173 130-400 K/uL Mean Platelet Volume 10.6 H 7.5-10.5 fL Immature Granulocyte % (Auto) 0.1 0-1 % Neutrophils (%) (Auto) 60.5 40.0-77.0 % Lymphocytes (%) (Auto) 26.3 21.0-51.0 % Monocytes (%) (Auto) 8.8 3.0-13.0 % Eosinophils (%) (Auto) 3.9 0.0-8.0 % Basophils (%) (Auto) 0.4 0.0-5.0 % Neutrophils # (Auto) 4.7 1.8-7.7 K/uL Lymphocytes # (Auto) 2.0 1.0-4.8 K/uL Monocytes # (Auto) 0.7 0.1-1.0 K/uL Eosinophils # (Auto) 0.30 0.00-0.70 K/uL Basophils # (Auto) 0.03 0.00-0.20 K/uL Absolute Immature Granulocyte (auto 0.01 0-1 K/uL Nucleated Red Blood Cells 0.0 0.0-0.19 % Chemistry Labs: Test 01/06/25 05:21 Range/Units Sodium Level 141 136-145 mmol/L Potassium Level 4.7 3.5-5.1 mmol/L Chloride Level 109 101-111 mmol/L Carbon Dioxide Level 22 21-32 mmol/L Blood Urea Nitrogen 23 H 7-18 mg/dL Creatinine 1.1 H 0.5-1.0 mg/dL Glomerular Filtration Rate Calc 51 >90 mL/min Random Glucose 127 H 70-105 mg/dL Total Calcium 8.8 8.5-10.1 mg/dL Magnesium Level 2.00 1.80-2.40 mg/dL Total Bilirubin 0.7 0.2-1.0 mg/dL Aspartate Amino Transf (AST/SGOT) 34 10-37 U/L Alanine Aminotransferase (ALT/SGPT) 24 12-78 U/L Alkaline Phosphatase 60 50-136 U/L Troponin I High Sensitivity 1899 *H 4-50 ng/L B-Type Natriuretic Peptide 50 0-100 pg/mL Total Protein 6.3 6.0-8.3 g/dL Albumin 3.4 L 3.5-5.0 g/dL Coagulation Labs: Test 01/05/25 11:26 Range/Units Activated Clotting Time 243 H 100-180 SEC Impression and Plan: This patient has recurrent PVCs which are undoubtedly related to the area which was ablated yesterday. They are not in exactly the same place however there is possible that there was suppressed due to adjacent ablation and edema. Plan: 1. At this point, it would be best to try medical therapy to suppress the PVCs. 2. If this is unsuccessful, then I will recommend repeat ablation since I feel that her cardiomyopathy is most likely related to her very high PVC burden. 3. We will start mexiletine 150 mg p.o. every 8 hours. It is important that these be taken with food and if the patient still has symptoms of nausea then t aking them with applesauce is usually very beneficial. 4. EKG in the morning 5. Continue to monitor on telemetry. 6. Continue Eliquis status post left ventricular PVC ablation. JOEY POOL MD January 06, 2025 18:34
[2025-01-07 01:52] VITALS: BP 121/59; PULSE 60; RESP 18; TEMP 98.7
[2025-01-07 04:00] VITALS: BP 129/57; PULSE 60; RESP 20; TEMP 98
[2025-01-07 07:29] VITALS: RESP 18; O2SAT 96
[2025-01-07 07:41] VITALS: BP 115/44; PULSE 60; RESP 18; TEMP 97.8
--- NOTE | 2025-01-07 07:41 | EKG ---
[facility] Test Date: 2025-01-07 Test Time: 05:39:22 Pat Name: NATASHA BURDEN Department: 2A Room: 205 1 Gender: F [employer]man: [id number] : 1945 Requested By: JOEY POOL Order Number: [id number] Reading MD: Oswald Clinton Measurements Intervals [place] Rate: 60 P: 0 WY: 314 QRS: 24 QRSD: 110 T: -61 QT: 434 QTc: 434 Interpretive Statements Atrial-paced rhythm Compared to ECG 01/06/2025 07:36:46 Ventricular premature complex(es) no longer present T-wave abnormality no longer present Electronically Signed On 01-07-2025 12:29:15 CDT by Oswald Clinton Please click the below link to view image of tracing.
[2025-01-07 08:00] VITALS: O2SAT 95
--- NOTE | 2025-01-07 09:34 | PN ---
This is a 79 year old female with persistent atrial fibrillation status post pulmonary venous antral isolation in [place] in 2014 with redo 09/10/2015 and 12/18/2015 with left atrial appendage isolation and status post recent cardioversion 11/17/2024 after an oral load of amiodarone. She is also status post watchman implant 3 years ago. She has a history of nonobstructive coronary artery disease by coronary CTA in October 2022, hypertension, hyperlipidemia, obstructive sleep apnea and morbid obesity. She is status post dual-chamber pacemaker insertion 10/12/2024 secondary to symptomatic bradycardia while on medical therapy for atrial fibrillation. She was admitted 12/28/2024 secondary to acute systolic heart failure exacerbation in the setting of frequent PVCs. Echocardiogram 12/27/2024 showed an ejection fraction of 35-40%. She underwent left heart catheterization 01/03/2025 which showed normal coronary arteries. On 01/05/2025 she underwent catheter ablation of PVCs originating from the mid to inferior LV, slightly posteriorly. There were occasional PVCs of different morphology is not related to her clinical PVCs while on Isuprel. She became hypotensive later that night and was transferred to ICU and started on Levophed. She began having recurrent PVCs in bigeminy of a slightly different morphology, however felt to be originating from near the site of ablation. She was started on mexiletine 150 mg 3 times daily. She is currently in an atrial paced rhythm with heart rates in the 60s. The last occurrence of ventricular bigeminy was around 11:30 p.m. yesterday. EKG this morning shows an atrial paced rhythm at 60 beats per minute. White blood count 7.7, hemoglobin 9.8, hematocrit 30.0, platelets 173. BMP from yesterday as follows: Creatinine 1.1, potassium 4.7, magnesium 2.0. Troponin x1 1899 felt to be related to the catheter ablation procedure. This morning she is feeling well and offers no new cardiac complaints. She denies palpitations, shortness or breath, dizziness or weakness. She denies nausea or GI discomfort secondary to mexiletine. On exam, she is in no acute distress, regular rate and rhythm, lungs are clear to auscultation bilaterally, no lower extremity edema is noted. Assessment: 1. Frequent PVCs status post catheter ablation 01/05/2025 with PVC recurrence the following day. 2. PVC induced cardiomyopathy. 3. Persistent atrial fibrillation. 4. Status post dual-chamber pacemaker insertion 10/12/2024. 5. Normal coronary arteries by left heart catheterization 01/03/2025. Plan: 1. She underwent PVC ablation 01/05/2025 with recurrence of PVCs in biginy the following day. She was started on mexiletine 150 mg 3 times daily with significant reduction in the PVCs. She was found to have an ejection fraction of 35-40% on this admission, in contrast to 55-60% in February of 2024 felt to be related to frequent PVCs. 2. She underwent successful cardioversion of persistent atrial fibrillation 11/17/2024 and is currently on amiodarone 200 mg once daily. 3. We will continue Eliquis 5 mg twice daily due to the recent PVC ablation. We will likely discontinue Eliquis in four weeks. 4. Continue aspirin 81 mg once daily, atorvastatin 80 mg once daily, furosemide 20 mg once daily, Entresto 24/26 mg half tablet twice daily and spironolactone 25 mg once daily. We will discontinue metoprolol tartrate and transitioned to metoprolol succinate 50 mg once daily. 5. She can be discharged home from a cardiology standpoint. Follow-up with Dr. Barboza in two weeks. 6. We will assess her arrhythmia burden as an outpatient and plan for repeat echocardiogram in 4-6 weeks. Vitals/Labs Vital Signs Date Time Temp Pulse Resp B/P (MAP) Pulse Ox O2 Delivery O2 Flow Rate FiO2 01/07/25 07:41 97.9 60 18 115/44 95 Room Air 01/07/25 07:29 21 01/06/25 20:00 0 ISABEL QUIROS January 07, 2025 09:34
[2025-01-07] MEDS ORDERED: SACU1TAB PO (09:39)
[2025-01-07] MEDS ORDERED: MEXI150 PO (09:39)
[2025-01-07] MEDS ORDERED: METO50TA9 PO (09:39)
[2025-01-07] MEDS ORDERED: SPIR25TA6 PO (09:39)
[2025-01-07] MEDS: metOPROLol sucCINATE 50 MG TAB.SR.24H PO SCH (10:41)
[2025-01-07 10:55] VITALS: BP 112/59; PULSE 60; RESP 18; TEMP 97.9
--- NOTE | 2025-01-07 17:04 | DS ---
Discharge Summary Hospital Course Summary: This is a 79 year old female with persistent atrial fibrillation status post pulmonary venous antral isolation in [place] in 2014 with redo 09/10/2015 and 12/18/2015 with left atrial appendage isolation and status post recent cardioversion 11/17/2024 after an oral load of amiodarone. She is also status post watchman implant 3 years ago. She has a history of nonobstructive coronary artery disease by coronary CTA in October 2022, hypertension, hyperlipidemia, obstructive sleep apnea and morbid obesity. She is status post dual-chamber pacemaker insertion 10/12/2024 secondary to symptomatic bradycardia while on medical therapy for atrial fibrillation. Cardiology was consulted and for the Frequent PVCs she underwent catheter ablation 01/05/2025 with PVC recurrence the following day. She underwent PVC ablation 01/05/2025 with recurrence of PVCs in bigeminy the following day. She was started on mexiletine 150 mg 3 times daily with significant reduction in the PVCs. She was found to have an ejection fraction of 35-40% on this admission, in contrast to 55-60% in February of 2024 felt to be related to frequent PVCs. Cardiology adjusted her medications and recommended that she can be discharged. Patient was anxious to go home and was discharged in a stable condition Hematologist Oncologist(s): Cardiology Assessment/Plan: ASSESSMENT: Excessive PVCs with ischemic cardiomyopathy secondary to that Acute hypoxemic respiratory failure, POA Paroxysmal atrial fibrillation with ventricular bigeminy, POA History of Watchman device placement about five years ago, POA History of prior cardioversions and cardiac ablation for atrial fibrillation, POA Hypertension, POA Hyperlipidemia, POA Obstructive sleep apnea maintained on outpatient CPAP, POA Obesity, POA PLAN: Patient discharged in a stable medical condition Home Medications: Active Scripts Tramadol Hcl (Tramadol HCl) 50 Mg Tablet, 50 MG PO Q6HPRN PRN for MODERATE TO SEVERE, #30 TAB 0 Refills MAY TAKE 1-2 TABLETS EVERY 6 HOURS NEEDED FOR MODERATE TO SEVERE PAIN. MAXIMUM EIGHT TABLETS IN 24 HOURS Prov:PATRICIA HOFF DIETETIC ASSISTANT 11/15/24 Reported Medications Verapamil HCl (Verapamil Sr) 120 Mg Cap24h.pel, 1 CAP PO DAILY 12/28/24 Amiodarone HCl (Amiodarone HCl) 200 Mg Tablet, 200 MG PO BID, TAB 11/15/24 Apixaban (Eliquis) 5 Mg Tablet, 5 MG PO BID, TAB 11/15/24 Acetaminophen (Arthritis Pain Relief) 650 Mg Tablet.er, 650 MG PO [id number] PRN for PAIN, TAB 10/10/24 Cholecalciferol (Vitamin D3) (Vitamin D3) 10 Mcg (400 Unit) Tab.chew, 10 MCG PO DAILY, TAB.CHEW 10/10/24 Magnesium (Magnesium) 250 Mg Tablet, 250 MG PO HS, TAB 02/09/24 Aspirin (Aspirin) 81 Mg Tab.chew, 81 MG PO HS, TAB.CHEW 02/09/24 Atorvastatin Calcium (Atorvastatin Calcium) 80 Mg Tablet, 80 MG PO HS, TAB 02/09/24 Acetaminophen/Diphenhydramine (Tylenol Pm Exstr 500-25Mg Cplt) 500 Mg-25 Mg Tablet, 2 EACH PO HS, TAB 02/09/24 Cyanocobalamin (Vitamin B-12) (Vitamin B-12) 1,000 Mcg Tablet.er, 1000 MCG PO DAILY, TAB 02/09/24 Lisinopril (Lisinopril) 20 Mg Tablet, 40 MG PO DAILY, TAB 02/09/24 Furosemide (Lasix 20Mg Tab) 20 Mg Tablet, 20 MG PO DAILY, TAB 02/09/24 Time spent arranging discharge: 31-60 minutes MAXINE ROSS MD January 07, 2025 17:04
--- NOTE | 2025-01-07 17:59 | PN ---
[facility] PROGRESS NOTE Date Patient Seen: January 07, 2025 Time of Visit: 17:59 Supervising Physician: Dr. Maya Primary Care Physician: Dr. Sugey Larkin MD Outpatient Specialists: [ ] Inpatient Consults: [ ] PROBLEM LIST: Acute heart failure exacerbation, s/p 2D echocardiogram done 12/27/2024 LVEF: 35- 40% possibly PVC related. Normal coronary arteries by cardiac catheterization 01/03/2025: Acute hypoxemic respiratory failure, POA resolved Paroxysmal atrial fibrillation with ventricular bigeminy, POA CHADS2 VASc score: 4 points. s/p Watchman implantation approximately five years ago, s/p cardiac ablation on 01/05/2025 Hypertension, POA Hyperlipidemia, POA Obstructive sleep apnea maintained on outpatient CPAP, POA Obesity, POA History of Watchman device placement about five years ago, POA History of prior cardioversions and cardiac ablation for atrial fibrillation, POA INTERVAL HISTORY: 01/07/2025: At the time of my evaluation, the patient was sitting up to the bedside chair. The staff nurse reports no acute events overnight. The patient reports feeling much better today and is rather anxious to be discharged home. On the monitor the patient is on room air with optimal oxygen saturation and is hemodynamically stable. Laboratory data review shows no new laboratory data for review today. No new imaging for review today. Patient continues on metoprolol, amiodarone, apixaban, furosemide, spironolactone, Entresto, aspirin and atorvastatin. No new complaint. REVIEW OF SYSTEMS: 12 point ROS reviewed with patient. Pertinent positives mentioned above. Otherwise negative. PHYSICAL EXAM: GENERAL: alert, weak, awake oriented x 3 HEENT: EOMI, Sclera non icteric, moist mucosa NECK: Supple, no JVD, trachea midline LUNGS: Clear breath sounds bilaterally. No wheezes HEART: Regular rate and rhythm. Normal S1 and S2, without murmurs ABD: Abdomen soft, nontender. Bowel sounds present EXT: No clubbing cyanosis or edema NEURO: Alert and oriented to person, follows commands Vital Signs (last 8hr) Date Time Temp Pulse Resp B/P (MAP) Pulse Ox O2 Delivery O2 Flow Rate FiO2 01/07/25 10:55 97.9 60 18 112/59 94 Room Air LABS: Hematology Labs: Test 01/06/25 05:21 Range/Units White Blood Count 7.7 4.8-10.8 K/uL Red Blood Count 2.98 L 4.00-5.50 MIL/uL Hemoglobin 9.8 L 12.0-16.0 g/dL Hematocrit 30.0 L 36-48 % Mean Corpuscular Volume 100.7 H 79-99 fL Mean Corpuscular Hemoglobin 32.9 27.0-33.0 pg Mean Corpuscular Hemoglobin Concent 32.7 32.0-36.0 g/dL Red Cell Distribution Width 13.5 11.0-15.5 % Platelet Count 173 130-400 K/uL Mean Platelet Volume 10.6 H 7.5-10.5 fL Immature Granulocyte % (Auto) 0.1 0-1 % Neutrophils (%) (Auto) 60.5 40.0-77.0 % Lymphocytes (%) (Auto) 26.3 21.0-51.0 % Monocytes (%) (Auto) 8.8 3.0-13.0 % Eosinophils (%) (Auto) 3.9 0.0-8.0 % Basophils (%) (Auto) 0.4 0.0-5.0 % Neutrophils # (Auto) 4.7 1.8-7.7 K/uL Lymphocytes # (Auto) 2.0 1.0-4.8 K/uL Monocytes # (Auto) 0.7 0.1-1.0 K/uL Eosinophils # (Auto) 0.30 0.00-0.70 K/uL Basophils # (Auto) 0.03 0.00-0.20 K/uL Absolute Immature Granulocyte (auto 0.01 0-1 K/uL Nucleated Red Blood Cells 0.0 0.0-0.19 % Chemistry Labs: Test 01/06/25 05:21 Range/Units Sodium Level 141 136-145 mmol/L Potassium Level 4.7 3.5-5.1 mmol/L Chloride Level 109 101-111 mmol/L Carbon Dioxide Level 22 21-32 mmol/L Blood Urea Nitrogen 23 H 7-18 mg/dL Creatinine 1.1 H 0.5-1.0 mg/dL Glomerular Filtration Rate Calc 51 >90 mL/min Random Glucose 127 H 70-105 mg/dL Total Calcium 8.8 8.5-10.1 mg/dL Magnesium Level 2.00 1.80-2.40 mg/dL Total Bilirubin 0.7 0.2-1.0 mg/dL Aspartate Amino Transf (AST/SGOT) 34 10-37 U/L Alanine Aminotransferase (ALT/SGPT) 24 12-78 U/L Alkaline Phosphatase 60 50-136 U/L Troponin I High Sensitivity 1899 *H 4-50 ng/L B-Type Natriuretic Peptide 50 0-100 pg/mL Total Protein 6.3 6.0-8.3 g/dL Albumin 3.4 L 3.5-5.0 g/dL DIAGNOSTICS / RADIOLOGY RESULTS: [ ] PLAN 01/07/2025: For now, we are going to continue current management for the patient. Per the staff nurse, the EPS was recently visiting with the patient and cleared the patient for discharge home. From the pulmonary standpoint, the patient is breathing on room air and there was no respiratory acute changes. From the pulmonary standpoint, the patient can be discharged home today as planned. At this time, I will take the opportunity to say thank you for allowing us to participate in patient's care. NEURO: Minimize central acting medications as possible. Maintain fall precautions, adequate lighting during the day PULMONARY: Supplemental 02 as needed. Maintain aspiration precautions at all times CARDIOVASCULAR: Follow hemodynamics. Vital signs per facility protocol GI & NUTRITION: Continue with nutritional support. Continue stool softeners and laxatives as needed. KIDNEYS & ELECTROLYTES: Strict monitoring of intake, output and overall fluid balance. Avoid nephrotoxic medications to the extent possible. Medications to be dosed according to renal function. Monitor electrolytes and replace as needed ENDOCRINE: Maintain blood glucose between 100-180 at all times. Hypoglycemia protocol in place INFECTIOUS DISEASE: Trend temperature, WBC and procalcitonin level Follow cultures, deescalate antibiotics as soon as possible. Panculture if new onset fever ONCOLOGY/HEMATOLOGY/COAGULATION: Monitor for s/s of bleeding Monitor hemoglobin, coagulation studies as needed SKIN: Pressure ulcer prevention per facility protocol Specialty mattress ORTHO/REHAB: Continue PT/OT Prophylaxis: Continue GI and DVT prophylaxis Code Status: Full Resuscitation Disposition: TBD Other: Patient was seen and case discussed with janet HURT. Plan was discussed and agreed upon. BIRGIT HU NP January 07, 2025 17:59
--- NOTE | 2025-01-07 18:07 | NUR ---
DISCHARGE HOME IV, TELEPAK AND ID BANDS REMOVED. DISCHARGE INSTRUCTIONS GIVEN AND EXPLAINED TO PATIENT AND DAUGHTER. PATIENT WHEELED DOWN TO PRIVATE CAR
--- NOTE | 2025-01-09 11:50 | NUR ---
Transitional Phone Call Spoke to Angel Real, Son [phone], states patient lives on the property and visits with her daily and "she is doing very, very well." States she has most of her prescribed medications and is working with [facility] and insurance and benefits clerk to see about one of the medications because cost was the issue, $300; otherwise denies questions or concerns. States patient has follow up appointment set for PCP - Dr. Larkin on 01/25/2025, insurance and benefits clerk - Dr. Omer on 01/08/2025, Dr. Barboza on 01/25/2025 and she is working on setting up the manager data - Dr. Lalito Martínez follow up appointment. No further questions or concerns at this time.
== END 2025-01-07 17:55 | disposition home or self-care (01) | DRG 273 ==
LOC: EDH 08:47 → EDHIP 13:42 → 2DH 12-29 12:35 → 2BH 01-06 05:13 → 2AH 01-06 16:29
PROVIDERS: ADMIT Internal Medicine; ATTEND Internal Medicine
PROC: 4A023N7 Measurement of Cardiac Sampling and Pressure, Left Heart, Percutaneous Approach (ICD-10-PCS; principal; 2025-01-03)
PROC: B2111ZZ Fluoroscopy of Multiple Coronary Arteries using Low Osmolar Contrast (ICD-10-PCS; 2025-01-03)
PROC: 02583ZZ Destruction of Conduction Mechanism, Percutaneous Approach (ICD-10-PCS; 2025-01-05)
PROC: 4A0234Z Measurement of Cardiac Electrical Activity, Percutaneous Approach (ICD-10-PCS; 2025-01-05)
PROC: 02K83ZZ Map Conduction Mechanism, Percutaneous Approach (ICD-10-PCS; 2025-01-05)
DX: I49.3 Ventricular premature depolarization (principal); I50.21 Acute systolic (congestive) heart failure; J96.01 Acute respiratory failure with hypoxia; I48.19 Other persistent atrial fibrillation; E66.2 Morbid (severe) obesity with alveolar hypoventilation; I11.0 Hypertensive heart disease with heart failure; E78.00 Pure hypercholesterolemia, unspecified; D50.9 Iron deficiency anemia, unspecified; F41.9 Anxiety disorder, unspecified; Z20.822 Contact with and (suspected) exposure to COVID-19; I25.10 Atherosclerotic heart disease of native coronary artery without angina pectoris; I25.5 Ischemic cardiomyopathy; Z68.36 Body mass index [BMI] 36.0-36.9, adult; Z95.0 Presence of cardiac pacemaker; Z79.01 Long term (current) use of anticoagulants; Z79.899 Other long term (current) drug therapy
CPT/HCPCS: 36415; 71045; 71046; 80048; 80053; 80061; 80076; 81003; 82550; 82948; 83036; 83735; 83880; 84145; 84443; 84484; 85025; 85027; 85347; 85610; 85651; 85730; 86140; 87635; 87804; 93005; 93458; 93462; 93623; 93654; 93662; 93970; 99156; 99157; A4344; C1730; C1732; C1760; C1894; G0378; J0282; J0330; J1644; J1650; J1938; J1940; J2250; J2371; J2405; J2704; J2720; J3010; J3490; J7060; Q9967; A4649; C1766; J0283; Q9965